=== PATIENT | female | born 1945 | race Caucasian/White ===

== ENCOUNTER 2017-10-22 02:02 | Inpatient (IN) | payer MEDICARE, MEDICAID ==
[2017-10-22] MEDS ORDERED: Albuterol Sulfate 2.5 mg/0.5 ml Neb ONE (02:22)
[2017-10-22 02:59] LABS: Hemoglobin 11.9 g/dL (12.0-16.0); Mean Corpuscular HGB CONC 30.6 g/dL (32.0-36.0); Mean Corpuscular Hemoglobin 33.2 pg (27.0-31.0); Mean Platelet Volume 8.6 fL (7.4-10.4); Platelet Count 221 thou/uL (130-400); RBC Distribution Width 14.7 % (11.5-14.5); Red Blood Cell (RBC) Count 3.58 mill/uL (4.20-5.40); White Blood Cell (WBC) Count 9.3 thou/uL (4.8-10.8)
[2017-10-22 03:07] LABS: ALT (SGPT) 33 U/L (8-55); AST (SGOT) 35 U/L (5-34); Albumin 4.1 g/dL (3.4-4.8); Alkaline Phosphatase 239 U/L (40-150); Anion Gap 25 mmol/L (10-20); BUN (Urea Nitrogen) 51 mg/dL (9.8-20.1); Bilirubin, Total 0.7 mg/dL (0.2-1.2); Calc. Creatinine Clearance 0 mL/min (70-130); Calcium 9.4 mg/dL (7.8-10.44); Carbon Dioxide 19 mmol/L (23-31); Chloride 101 mmol/L (98-107); Estimated GFR-MDRD 4; Globulin 2.5 g/dL (2.4-3.5); Glucose 248 mg/dL (80-115); Magnesium 2.3 mg/dL (1.6-2.6); Phosphorus 6.3 mg/dL (2.3-4.7); Potassium 4.7 mmol/L (3.5-5.1); Protein, Total 6.6 g/dL (6.0-8.3); Sodium 140 mmol/L (136-145)
[2017-10-22 03:09] LABS: #Basophils 0.1 thou/uL (0.0-0.2); #Eosinphils 1.1 thou/uL (0.0-0.7); #Lymphocytes 3.1 thou/uL (1.20-3.40); #Monocytes 0.4 thou/uL (0.11-0.59); #Neutrophils 4.6 thou/uL (1.40-6.50); %Basophils 0.6 % (0.0-1.0); %Eosinophils 11.7 % (0.0-10.0); %Lymphocytes 33.7 % (21.0-51.0); %Monocytes 4.7 % (0.0-10.0); %Neutrophils 49.4 % (42.0-75.0); MDiff Complete? YES; Macrocytosis SLIGHT = 6-15 cells (100X) (0-5/hpf); PLT Morphology Comment Appears Adequate
[2017-10-22 03:10] LABS: Troponin I 0.064 ng/mL (< 0.028)
[2017-10-22 03:24] LABS: Lactic Acid 7.5 mmol/L (0.5-2.2)
[2017-10-22] MEDS ORDERED: Piperacillin-Tazo-Dextrose,Iso 3.375 GM in Premix Bag 1 BAG IVPB SCH (04:00)
[2017-10-22 04:36] LABS: Bilirubin Negative (Negative); Blood, Urine Large (Negative); Clarity TURBID (Clear); Glucose, Urine (Dipstick) 100 mg/dL (Negative); Leukocyte Moderate (Negative); Nitrite Negative (Negative); Protein, Urine (Dipstick) 300 mg/dL (Neg-Trace); Urobilinogen 0.2 mg/dL (0.2-1.0)
[2017-10-22 04:39] LABS: Bacteria/HPF 4+ HPF (None Seen); Hyaline Casts/LPF 7-10 HYALINE CAST LPF (0-3 Hyaline); Pathc Cast-AUWi Flag 2.16 (0-2.49)
[2017-10-22 04:41] LABS: Yeast-AUWi Flag 180.7 (0-25.0)
[2017-10-22 05:07] LABS: Crystals/HPF None Seen HPF (Negative); Yeast-All Forms None Seen HPF (None Seen)
[2017-10-22] MEDS ORDERED: Vancomycin HCl 500 MG in Sodium Chloride 0.9% 100 ML IVPB SCH ×2 (06:15→06:30)
[2017-10-22] MEDS ORDERED: Vancomycin HCl 1.25 GM in Sodium Chloride 0.9% 250 ML 250 ML IVPB SCH (06:30)
[2017-10-22] MEDS ORDERED: Vancomycin HCl 750 MG in Sodium Chloride 0.9% 250 ML 250 ML IVPB SCH (06:30)
[2017-10-22] MEDS ORDERED: HOLD VANCOMYCIN FOR LEVEL >20 FS SCH (06:30)
[2017-10-22] MEDS ORDERED: Vancomycin HCl 1 GM in Premix Bag 1 BAG IVPB SCH (06:30)
[2017-10-22 06:49] LABS: Troponin I 0.188 ng/mL (< 0.028)
[2017-10-22] MEDS ORDERED: Dextrose 5% in Water 1,000 ML IV PRN ×2 (06:54→08:18)
[2017-10-22] MEDS ORDERED: Dextrose 50% Abboject 50 ML SYRINGE SLOW IVP PRN ×2 (06:54→08:18)
[2017-10-22] MEDS ORDERED: HumaLOG 300 UNITS/3 ML VIAL SC PRN ×3 (06:54→08:18)
[2017-10-22 07:34] LABS: HBSAg Index 0.24 S/CO (0-0.99); Hep B Surf Ag Non-Reactive S/CO (NonReactive)
--- NOTE | 2017-10-22 08:17 | RAD ---
PORTABLE UPRIGHT FRONTAL CHEST: Date: 10-22-17 Comparison: 03-29-15 History: Cough. FINDINGS: There is pleural and parenchymal opacity in both lung bases, left greater than right, with blunting o f bilateral costophrenic angles and obscuration of bilateral hemidiaphragms, left greater than right. Extensive stent graft material overlies the left axillary region and left upper extremity. There is no pneumothorax. IMPRESSION: Interval development of interstitial and alveolar opacity within the lung bases, left greater than ri ght, with associated pleural fluid. Findings suggest pulmonary edema. Infectious pneumonitis cannot b e excluded. Follow up to resolution advised. POS: VIDYA
[2017-10-22] MEDS ORDERED: Ondansetron ODT 4 MG TAB PO PRN (08:18)
[2017-10-22] MEDS ORDERED: Labetalol HCl 100 MG/20 ML VIAL SLOW IVP PRN (08:18)
[2017-10-22] MEDS ORDERED: Acetaminophen 325 MG TAB PO PRN (08:18)
[2017-10-22 08:41] LABS: Actual Bicarbonate (HCO3v) 25 mEq/L (22-26); Base Excess 2.2 mEq/L (0 (+/- 2.5)); Calcium, Ionized 0.94 mmol/L (1.16-1.32); Chloride (ABG LAB) 102 mmol/L (98-106); Hematocrit-VBG 30.9 % (35-47); Potassium - ABG Lab 5.3 mmol/L (3.70-5.30); Sodium 138.8 mmol/L (133-146)
[2017-10-22 08:42] LABS: Analyzer IN Cardio ER; pH (venous) 7.49 (7.35-7.45)
[2017-10-22 08:58] LABS: Hemoglobin A1c 4.7 % (4.0-6.0)
[2017-10-22] MEDS ORDERED: Heparin 5,000 UNITS/ML VIAL SC SCH (09:00)
[2017-10-22] MEDS ORDERED: Heparin 5,000 UNITS/ML VIAL ONE ×2 (09:25→09:35)
--- NOTE | 2017-10-22 09:33 | HP-2 ---
CODE STATUS: FULL. PRIMARY CARE PHYSICIAN: Dr. Raven Isaacs ATTENDING: Dr. Vianney Orona RESIDENT: Dr. Meghann Rosales HISTORIAN: Patient. SPECIALIST: Dr. Blake, Nephrology; Dr. Kyle, Cardiology. CHIEF COMPLAINT: Shortness of breath. HISTORY OF PRESENT ILLNESS: The patient is a 72-year-old female with past medical history of end-sta ge renal disease on dialysis Saturday, Saturday, and Saturday and a recent 2-day history of nausea, vomi ting, diarrhea as well as cough. The patient came in for acute onset of shortness of breath. The pa connie missed dialysis yesterday due to feeling poorly. No fever at home. No ill contacts. The jarred ent does report a small amount of blood in her stools that has been worked up and had a positive feca l occult blood in the clinic. The patient found to have an elevated glucose on labs, no history of d iabetes. The patient also reports she has been seen by Dr. Kyle and put on Xarelto the last 3 week s for "risk of stroke." The patient unsure if he diagnosed her with atrial fibrillation. In the ER she was given 1 gram of vancomycin, 3.37 mg of Zosyn, DuoNebs, albuterol nebs and 250 mL no rmal saline. PAST MEDICAL HISTORY: 1. History of advanced breast cancer, status post radiation. 2. Transient ischemic attack. 3. End-stage renal disease on dialysis Saturday, Saturday and Saturday. 4. Bipolar disorder. 5. Glaucoma. 6. Hypertension. 7. Hyperlipidemia. 8. Questionable paroxysmal atrial fibrillation. PAST SURGICAL HISTORY: x3 and lumpectomy. ALLERGIES: No known drug allergies. MEDICATIONS: The patient unsure of doses, beginning Xarelto 3 weeks ago, aspirin, raloxifene, nifedi pine, Lipitor, metoprolol, Renvela, and Pristiq. SOCIAL HISTORY: Denies tobacco, alcohol, and drug use. Lives at home with fiance. Normally is able to perform ADLs on her own. She gets around without walker or aide. REVIEW OF SYSTEMS: A 12 point review of systems performed including general, eyes, ENT, respiratory, CV, GI, , skin, MS, neuro and psych, found to be positive for those things mentioned in the HPI as well as increased weight change that is appropriate for increased intake to gain weight on purpose. Dry cough and congestion. PHYSICAL EXAMINATION: VITAL SIGNS: Blood pressure 200/92, pulse 98, respiratory rate 30, T-max 97.4, pulse ox 97% on nonre breather. Current weight 56.25 kilograms. GENERAL: The patient is alert and oriented x4 and does have slowed mentation, is tremulous, but appr opriately interactive. EYES: PERRLA, EOMI. ENT: Nasal mucosa within normal limits. Oropharynx within normal limits. NECK: Supple, without lymphadenopathy. CARDIOVASCULAR: Regular rate and rhythm, no murmurs. RESPIRATORY: Does have wheezing throughout. No retractions. Normal effort. SKIN: Warm and dry. ABDOMEN: Soft, nontender, nondistended. No masses palpated. EXTREMITIES: No clubbing, cyanosis or edema. MUSCULOSKELETAL: Structure within normal limits. Tone within normal limits. NEUROLOGIC: No focal deficits. GCS 15. PSYCHIATRIC: Appropriate. LABORATORY DATA: CBC, white blood cell count 9.3, hemoglobin 11.9, hematocrit 38.8, platelets were 2 21, MCV 109. Chemistries: Sodium 140, potassium 4.7, chloride 101, bicarb 19, BUN 51, creatinine 8.79, glucose 24 8, GFR 4, calcium 9.4, total protein 6.6, albumin 4.1, AST 35, ALT 33, alkaline phosphatase 239, tot al bilirubin 0.7. Lactic acid 7.5. Mag 2.3, phosphorus 6.3. CK-MB 2.0, troponin 0.064. BNP is 3496. UA was performed, positive leukocyte esterase, increased white blood cell count, proteinuria and bact eria, although sample has 10-15 squamous cells. Chest x-ray: Bilateral pleural effusions with blunting of the costophrenic angles, vascular congesti on, possible right lower lobe infiltrate and official read is pending. ASSESSMENT AND PLAN: 1. Volume overload secondary to missing dialysis. The patient with end-stage renal disease on dialy sis Saturday, Saturday, and Saturday. We will admit to [facility] and get dialysis today. This is a likely c ause of elevated troponin's and BNP. 2. Possible pneumonia, started on vancomycin and Zosyn in the ED. We will continue for hospital acq uired pneumonia secondary to using dialysis facilities. We will get a blood culture and test for Str ep pneumo urine antigen. 3. Hypertensive urgency. Goal to lower by 20 points, while we await dialysis we will give p.r.n. la betalol. 4. Anion gap metabolic acidosis likely secondary to uremia, but will rule out DKA with beta hydroxyb utyrate and get a VBG. 5. New diagnosis of diabetes type 2. Check A1c and place on sliding scale insulin. 6. Questionable paroxysmal atrial fibrillation. We will request records from Dr. Kyle and vicente Kendall. 7. Lactic acidosis. We will recheck in 4 hours, possibly secondary to dehydration versus DKA versus infection. 8. Urinary tract infection, likely, although UA is contaminated. We will continue Zosyn and get a u rine culture. 9. Hematochezia, a small amount in stool, is being worked up outpatient. We will get stool studies to evaluate. 10. DVT prophylaxis. We will give heparin. DISPOSITION/LENGTH OF HOSPITAL STAY: 1-2 days. Symptomatic medication will be provided. History and physical exam as well as management discussed with Dr. Vianney Orona.
--- NOTE | 2017-10-22 12:50 | CON ---
DATE OF CONSULTATION: 10/22/2017 HISTORY OF PRESENT ILLNESS: Ms. Little is a 72-year-old white female with known history of en d-stage renal disease, currently on maintenance hemodialysis who presented with shortness of breath. She was found to be in CHF. She was empirically managed by CPAP and oxygenation, improved. This mo rning she is feeling better. We are being consulted for her maintenance hemodialysis. Please note t he patient missed her dialysis yesterday. We are planning to schedule her for dialysis this afternoo n. REVIEW OF SYSTEMS: Positive for shortness of breath, improved now. Chest pain, single episode. No nausea, no vomiting, no diarrhea. Appetite and energy level is fair. No headache, no diplopia, no s yncopal episode, no gross hematuria, no dysuria, no urinary frequency, no hemoptysis, no fever or chi lls. No abdominal pain. MEDICATIONS: Trazodone 100 mg p.o. at bedtime, Renvela 800 mg 4 tabs t.i.d. with meals, Evista 60 mg daily, metoprolol tartrate 25 mg p.o. at bedtime, Ritalin 20 mg p.o. t.i.d., Pristiq 50 mg q.a.m., S ensipar 90 mg daily, atorvastatin 20 mg tab at bedtime. PAST MEDICAL HISTORY: 1. ESRD, currently on maintenance hemodialysis. 2. History of chronic lithium nephrotoxicity. 3. History of bipolar disorder. 4. History of hypertension. 5. Breast cancer - in remission. 6. Osteoporosis. PAST SURGICAL HISTORY: 1. section. 2. Status post AV graft/fistula placement. 3. Status post bilateral tubal ligation. 4. Status post cuffed hemodialysis catheter placement. 5. Status post colonoscopy. ALLERGIES: None. TRAUMA: None. IMMUNIZATIONS: Up to date. HOSPITALIZATIONS: Please see past medical history. FAMILY HISTORY: No family history of ESRD. SOCIAL HISTORY: The patient is , 2 children. Currently no smoking, no alcohol intake, seden tary lifestyle. Status post blood transfusion. PHYSICAL EXAMINATION: VITAL SIGNS: Blood pressure is 164/87, heart rate 94, pulse ox is 92%. GENERAL: Awake, alert, supine, comfortable, not in distress. SKIN: Adequate turgor. HEENT: She has pinkish conjunctivae, anicteric sclerae. NECK: No neck mass, no carotid bruits, no JVD. CHEST: No deformities. LUNGS: Decreased breath sounds. HEART: Normal sinus rhythm. No murmur, no gallops or rubs. ABDOMEN: Globular, soft, nontender, no masses. EXTREMITIES: No edema. NEUROLOGIC: Moving all extremities. No tremors, no asterixis, no ataxia. Chest x-ray shows CHF. LABORATORY: 10/22/2017 - White count 9.3, hemoglobin 11.9. 10/22/2017 - Sodium 143, chloride 101, carbon dioxide 19, potassium 4.7, BUN 15, creatinine 8.79, glu cose 248, GFR 4 mL per minute, calcium 9.4, magnesium 2.3, AST 35, ALT 33, troponin I 0.188, albumin 4.1. ASSESSMENT AND PLAN: 1. Congestive heart failure. We will schedule for hemodialysis. Fluid removal as tolerated. 2. End-stage renal disease. The patient missed her dialysis. We will do her dialysis today for 3 h ours. The plan is to max out fluid removal as tolerated by the patient. My review of the last Kt/V suggests she is adequately dialyzed with the current dialysis regimen. Please note she did miss her dialysis. She has some compliance issues with dialysis regimen. I agree with current management. Continue supportive care.
[2017-10-22 15:35] LABS: Anion Gap 17 mmol/L (10-20); BUN (Urea Nitrogen) 36 mg/dL (9.8-20.1); Calc. Creatinine Clearance 0 mL/min (70-130); Calcium 9.1 mg/dL (7.8-10.44); Carbon Dioxide 27 mmol/L (23-31); Chloride 101 mmol/L (98-107); Estimated GFR-MDRD 7; Glucose 104 mg/dL (80-115); Magnesium 1.9 mg/dL (1.6-2.6); Phosphorus 2.8 mg/dL (2.3-4.7); Potassium 4.6 mmol/L (3.5-5.1); Sodium 140 mmol/L (136-145)
[2017-10-22 17:25] LABS: Troponin I 0.376 ng/mL (< 0.028)
[2017-10-22] MEDS ORDERED: Albuterol Sulfate 2.5 mg/3 ml Neb NEB SCH (19:00)
[2017-10-22] MEDS ORDERED: Heparin 25,000 units/D5W 500 ML IVPB SCH (19:15)
[2017-10-22] MEDS ORDERED: Heparin 10,000 UNITS/ 10 ML VIAL SLOW IVP SCH (19:15)
[2017-10-22 19:32] LABS: Hemoglobin 9.8 g/dL (12.0-16.0); Platelet Count 153 thou/uL (130-400)
[2017-10-22 19:56] LABS: CKMB 2.9 ng/mL (0-6.6)
[2017-10-22 19:58] LABS: Critical Call Chem Troponin I RESULT DECREASING; Troponin I 0.336 ng/mL (< 0.028)
--- NOTE | 2017-10-22 21:27 | ADD-PRG ---
DATE OF SERVICE: 10/22/2017 I am currently visiting with Dianna Farias at the dialysis unit. I am at the bedside and super vising on dialysis, so far she is tolerating the fluid removal. Please note she was admitted for con gestive heart failure. We are attempting to max out fluid removal. For the moment, I agree with cur kevint management. If the patient is discharged, we will follow her up at the outpatient dialysis unit .
[2017-10-22] MEDS: Piperacillin/Tazobactam 2.25 GM in Sodium Chloride 0.9% 50 ML IVPB SCH (22:36)
[2017-10-22] MEDS: Heparin 5,000 UNITS/ML VIAL SC SCH (22:46)
[2017-10-22 23:16] VITALS: BMI 23.1
[2017-10-23] MEDS: Piperacillin/Tazobactam 2.25 GM in Sodium Chloride 0.9% 50 ML IVPB SCH ×2 (00:01→12:23)
[2017-10-23] MEDS ORDERED: hydrOXYzine 10 MG TAB PO PRN (00:22)
[2017-10-23 05:26] LABS: #Eosinphils 0.4 thou/uL (0.0-0.7); #Lymphocytes 0.7 thou/uL (1.20-3.40); #Monocytes 0.4 thou/uL (0.11-0.59); #Neutrophils 2.4 thou/uL (1.40-6.50); %Basophils 0.9 % (0.0-1.0); %Eosinophils 10.1 % (0.0-10.0); %Lymphocytes 16.7 % (21.0-51.0); %Monocytes 10.5 % (0.0-10.0); %Neutrophils 61.9 % (42.0-75.0); Hemoglobin 9.5 g/dL (12.0-16.0); Mean Corpuscular HGB CONC 33.1 g/dL (32.0-36.0); Mean Corpuscular Hemoglobin 34.9 pg (27.0-31.0); Mean Platelet Volume 8.9 fL (7.4-10.4); Platelet Count 137 thou/uL (130-400); RBC Distribution Width 14.7 % (11.5-14.5); Red Blood Cell (RBC) Count 2.73 mill/uL (4.20-5.40); White Blood Cell (WBC) Count 3.9 thou/uL (4.8-10.8)
[2017-10-23 05:36] LABS: ALT (SGPT) 25 U/L (8-55); AST (SGOT) 19 U/L (5-34); Albumin 3.2 g/dL (3.4-4.8); Alkaline Phosphatase 173 U/L (40-150); Anion Gap 14 mmol/L (10-20); BUN (Urea Nitrogen) 29 mg/dL (9.8-20.1); Bilirubin, Total 0.7 mg/dL (0.2-1.2); Calc. Creatinine Clearance 8 mL/min (70-130); Calcium 9.6 mg/dL (7.8-10.44); Carbon Dioxide 28 mmol/L (23-31); Chloride 103 mmol/L (98-107); Estimated GFR-MDRD 7; Globulin 2.2 g/dL (2.4-3.5); Glucose 99 mg/dL (80-115); Protein, Total 5.4 g/dL (6.0-8.3); Sodium 140 mmol/L (136-145)
[2017-10-23 05:40] LABS: Strep pneumo Urine Ag POSITIVE (NEGATIVE)
[2017-10-23 08:02] LABS: Vancomycin, Random 12.5 ug/mL (See Comment)
[2017-10-23] MEDS ORDERED: Epoetin (ESRD) 20,000 UNITS/ML SC SCH ×2 (08:15→09:00)
--- NOTE | 2017-10-23 08:58 | PRG ---
DATE OF SERVICE: 10/23/2017 SUBJECTIVE: Ms. Little is a 72-year-old white female with history of ESRD. She was admitted for shortness of breath/CHF. She underwent emergent hemodialysis yesterday. She is currently underg oing hemodialysis this morning. I am at the bedside supervising her dialysis. This is her regular d ia day. Shortness of breath is much improved. The patient denies any chest pain. OBJECTIVE: VITAL SIGNS: Blood pressure 187/88, heart rate 88, respiratory rate 14, temperature 98.5, pulse ox 9 5%. GENERAL: Awake, alert, comfortable, not in distress. SKIN: Adequate turgor. HEENT: Slightly pale conjunctivae, anicteric sclerae. NECK: No neck mass, no carotid bruits, no JVD. CHEST: No deformities. LUNGS: Clear breath sounds. No wheezing, no crackles. HEART: Normal sinus rhythm. No murmur, no gallops, no rubs. ABDOMEN: Globular, soft, nontender, no masses. EXTREMITIES: No edema, no deformities. MEDICATIONS: Of 10/23/2017 was reviewed. LABORATORY DATA: Of 10/23/2017, white count 3.9, hemoglobin 9.5. Sodium 140, potassium 5, chloride 103, carbon dioxide 28, BUN 29, creatinine 5.97, glucose 99, calcium 9.6, albumin 3.2, and troponin I 0.036. ASSESSMENT AND PLAN: 1. Congestive heart failure, clinically much improved, fluid removal was done with dialysis yesterda y. 2. End-stage renal disease, stable. We will continue current Saturday, Saturday, Saturday hemodialysis regimen. Fluid removal as tolerated by the patient. No changes will be made with the current dialy sis. 3. Anemia - Start Epogen 7500 units subcu q. week.
--- NOTE | 2017-10-23 11:28 | PDOC.FM ---
Addendum entered and electronically signed by Gonzalo Aguayo MD 10/23/17 11:49: Contact with Dr. Kyle confirms she has history of atrial fib which she is on afib for. Original Note: - Subjective Subjective: Patient says she feels well, back at her baseline. She denies having fever, SOB , chest pain, nausea. - Objective MAR Reviewed: Yes Vital Signs & Weight: Vital Signs (12 hours) Temp Pulse Resp BP BP Pulse Ox 10/23/17 04:15 93 187/88 H 10/23/17 04:00 98.5 F 88 14 187/86 H 95 Weight Weight 59.33 kg I&O: 10/22/17 10/23/17 10/24/17 06:59 06:59 06:59 Output Total 2500 Balance -2500 Result Diagrams: 10/23/17 04:30 10/23/17 04:30 <Gonzalo Aguayo - Last Filed: 10/23/17 11:26> - Objective Vital Signs & Weight: Vital Signs (12 hours) Temp Pulse Resp BP BP Pulse Ox 10/23/17 04:15 93 187/88 H 10/23/17 04:00 98.5 F 88 14 187/86 H 95 Weight Weight 59.33 kg I&O: 10/22/17 10/23/17 10/24/17 06:59 06:59 06:59 Output Total 2500 Balance -2500 Result Diagrams: 10/23/17 04:30 10/23/17 04:30 <Pablito Melvin - Last Filed: 10/23/17 11:58> Phys Exam - Physical Examination Constitutional: NAD HEENT: moist MMs Neck: no nodes, supple Respiratory: no wheezing, no rales, no rhonchi, clear to auscultation bilateral No crackles heard on exam Cardiovascular: RRR Gastrointestinal: soft Musculoskeletal: no edema Neurological: non-focal Lymphatic: no nodes <Gonzalo Aguayo - Last Filed: 10/23/17 11:26> Dx/Plan (1) Streptococcal pneumonia Code(s): J15.4 - PNEUMONIA DUE TO OTHER STREPTOCOCCI Status: Acute Plan: Urine antigen came back positive, will treat with amoxicillin 500 mg TID (2) Lactic acidosis Code(s): E87.2 - ACIDOSIS Status: Acute Plan: Resolved (3) Bacteria in urine Code(s): R82.71 - BACTERIURIA Status: Acute Plan: She is asymptomatic at this time, culture came back as urine skin contaminate. Likely from skin esther (4) Hyperglycemia Code(s): R73.9 - HYPERGLYCEMIA, UNSPECIFIED Status: Acute Plan: Patient had normal a1c. Elevated BG likely not diabetes (5) Atypical chest pain Code(s): R07.89 - OTHER CHEST PAIN Status: Acute Plan: She had elevated trops x3, but is now decreasing. Ekg show no new change. Patient asymptomatic. May be related to demand via need for dialysis versus htn. Will continue dialysis and work on HTN (6) ESRD (end stage renal disease) Code(s): N18.6 - END STAGE RENAL DISEASE Status: Acute Plan: Continue with dialysis (7) HTN (hypertension) Code(s): I10 - ESSENTIAL (PRIMARY) HYPERTENSION Status: Acute Plan: Will reevaluate home medication and titrate medication <Gonzalo Aguayo - Last Filed: 10/23/17 11:26> Attending Addendum - Attending Addendum I personally evaluated the patient and discussed the management with Dr. Aguayo. I agree with and reviewed the History, Examination, Assessment and Plan documented above with any addition or exceptions noted below. Patient doing very well this morning, would like to go home. Denies cp/sob/n/v/ abd pain. ESRD now s/p 2 sessions of dialysis CAP with strep pneumonia Hypertensive urgency, restart home medications Elevated troponin 2/2 above without symptoms of ischemia A. fib, on NOAC at home Anticipate one more day for antibiotics as well as hypertension management. If any signs of ischemia we will of course consult cardiology. <Pablito Melvin - Last Filed: 10/23/17 11:58>
[2017-10-23] MEDS ORDERED: AMOXicillin 250 MG CAP PO SCH (12:00)
[2017-10-23] MEDS ORDERED: NIFEdipine XL 30 MG TAB PO SCH (12:15)
[2017-10-23] MEDS ORDERED: Metoprolol Tartrate 50 MG TAB PO SCH (12:15)
[2017-10-23] MEDS: Heparin 5,000 UNITS/ML VIAL SC SCH (12:23)
[2017-10-23 15:56] VITALS: TEMP 99.3
[2017-10-23] MEDS ORDERED: Rivaroxaban 15 MG TAB PO SCH (17:00)
[2017-10-23 17:08] VITALS: BP 152/70
--- NOTE | 2017-10-23 18:29 | CON ---
DATE OF CONSULTATION: 10/23/2017 REASON FOR CONSULTATION: Positive troponins. PRIMARY NON DESTRUCTIVE EVALUATION MANAGER: Elliot Kyle M.D. HISTORY OF PRESENT ILLNESS: Ms. Little is a very pleasant 72-year-old white female who comes to the hospital for increased shortness of breath. She missed a day of dialysis. She is on hemodial ysis Saturday, Saturday, and Saturday for end-stage renal disease. As she was not feeling well, she was having nausea, vomiting, and diarrhea, and a cough. Because she missed a day, she became volume ove rload. She became very short of breath and had to come in for evaluation. Here, she was given emerg ent dialysis and she is already feeling much better. I have seen her in the office in the recent pas t. She had an echocardiogram a few weeks ago which showed normal LV function. During the echocardio gram, she had several short runs of atrial fibrillation. So at this point, we discussed with her the risk of stroke and we started her on Xarelto for stroke prophylaxis. Since we started this, her PCP has been evaluating her for positive fecal occult blood in the clinic and has followup appointments with GI. Currently, she denies any chest pain, tightness, or pressure. She also had a stress test e rody this year which was normal. PAST MEDICAL HISTORY: 1. Breast cancer, status post radiation. 2. TIAs in the past. 3. End-stage renal disease, on hemodialysis Saturday, Saturday, Saturday. 4. Bipolar disorder. 5. Glaucoma. 6. Hypertension. 7. Hyperlipidemia. 8. Paroxysmal atrial fibrillation. Recent new diagnosis. PAST SURGICAL HISTORY: 1. . 2. Lumpectomy. OUTPATIENT MEDICATIONS: Include, 1. Xarelto 50 mg p.o. daily. 2. Aspirin 81 daily. 3. Raloxifene. 4. Nifedipine. 5. Lipitor. 6. Metoprolol. 7. Renvela. 8. Pristiq. ALLERGIES: No known drug allergies. SOCIAL HISTORY: No alcohol, tobacco or drugs. REVIEW OF SYSTEMS: Twelve point review of systems was done and is all negative unless stated in the history of present illness. PHYSICAL EXAMINATION: VITAL SIGNS: Temperature 99.3, pulse 85, respiratory 18, O2 sat 96% on room air. Blood pressure 140 /67. GENERAL: Awake, alert, oriented x3, in no distress. HEENT: Normocephalic, atraumatic. NECK: Supple. LUNGS: Clear. CARDIOVASCULAR: S1, S2, no S3 or S4. There is a grade 2/6 systolic murmur at right upper sternal amelia rder. ABDOMEN: Soft. Positive bowel sounds. EXTREMITIES: No edema. SKIN: Warm and dry. LABORATORY WORK: Reviewed. CBC with white count of 3.9, hemoglobin 9.5, this is down from 11.9 yest erday, platelet count of 137. Coags were unremarkable. ABG was reviewed. Chemistries were reviewed . Troponin was 0.37, 0.33, BUN is 29, creatinine is 5.97, glucose was 114; alkaline phos of 173, lit tle high; AST, ALT, and total bilirubin were normal. Albumin of 3.2. UA, moderate leukocyte esteras e, large amount of blood, greater than 50 white cells, 4-6 red cells, 4+ bacteria. Beta hydroxybutyr ate was negative. Strep pneumo urinary antigen was positive. Chest x-ray showed interstitial lower lobe opacities in the lung bases, pulmonary edema. There could be an infectious pneumonitis in the left side. ASSESSMENT AND PLAN: 1. Elevated troponins: Most likely related to her infectious process and her end-stage renal diseas e status. She had a recent normal stress test and is not having any symptoms concerning for an acute coronary syndrome. Would continue to treat conservatively for now. No indication for anticoagulati on. 2. Volume overload related to missing hemodialysis. Much better now after emergent dialysis was per formed. 3. Pneumonia: Possibly strep pneumo given a positive urine antigen. Being treated per primary team . 4. Paroxysmal atrial fibrillation: This is a new diagnosis that was seen on a recent echocardiogram . She had several bouts of atrial fibrillation during the echo that would be with her history of tra nsient ischemic attacks in the past. She would be a candidate for full anticoagulation and she was s tarted on Xarelto; however, at this time she has dropped her hemoglobin for about 2 points and she lópez s had some occult blood in her stool. I would switch her back to aspirin 81 a day only for now until GI workup is finished and if she is cleared from GI and her hemoglobin remains stable, we may rechal lenge her with Xarelto, but at this point we will hold for now. I already spoke with her about this and about the increased risk of having a stroke without full anticoagulation. She understands and ve rbalizes understanding of this. Thank you for letting us to participate in the care of your patient. We will follow.
[2017-10-23] MEDS ORDERED: Atorvastatin Calcium 20 MG TAB PO SCH (21:00)
[2017-10-24] MEDS ORDERED: AMOXicillin 250 MG CAP PO SCH (09:00)
[2017-10-24] MEDS ORDERED: Metoprolol Tartrate 50 MG TAB PO SCH (09:00)
[2017-10-24] MEDS ORDERED: NIFEdipine XL 30 MG TAB PO SCH (09:00)
--- NOTE | 2017-10-24 13:03 | DIS-2 ---
DATE OF ADMISSION: 10/22/2017 DATE OF DISCHARGE: 10/23/2017 ADMITTING ATTENDING: Vianney Orona M.D. DISCHARGE ATTENDING: Pablito Melvin MD RESIDENT: Gonzalo Aguayo M.D. CONSULTS: Driss Blake M.D. PROCEDURES: Chest x-ray on 10/22/2017. Impression: Interval development of interstitial and alveolar opacity within the lung base, left greater than right with associated pleural fluid. Findings suggestive of pulmonary edema where infectious pneumonitis cannot be excluded. Followup to resolution advised. DISCHARGE MEDICATIONS: 1. Amoxicillin 500 mg p.o. daily. 2. Epocrit 7500 units subcutaneous every 7 days. 3. Renvela 2400 mg p.o. t.i.d. with meals. 4. Evista 60 mg p.o. daily. 5. Latanoprost 0.5% one drop each eye at bedtime. 6. Sensipar 2 tablets p.o. daily. 7. Pristiq 50 mg p.o. q.a.m. 8. Atorvastatin 20 mg p.o. at bedtime. 9. Zofran 4 mg every 6 hours as needed. 10. Nifedipine 30 mg p.o. daily. 11. Zyrtec 10 mg p.o. daily. 12. Pantoprazole 20 mg p.o. daily. 13. Trazodone 150 mg p.o. at bedtime. 14. Metoprolol 50 mg p.o. daily. DISCONTINUED MEDICATIONS 1, Xarelto 15 mg mg p.o. at bedtime with supper until GI workup completed for possible GI bleed DISCHARGE DIAGNOSES: 1. Volume overload secondary to missing dialysis. 2. Streptococcus pneumoniae. 3. Hypertensive urgency. 4. Anion gap metabolic acidosis secondary to uremia. 5. Hyperglycemia. 6. History of paroxysmal atrial fibrillation. 7. Lactic acidosis. 8. Hematochezia. HISTORY OF PRESENT ILLNESS AND HOSPITAL COURSE: This is a 72-year-old female with past medical history of end-stage renal disease and missed dialysis the day prior to admission. She came in for acute onset of shortness of breath. She had no sick contacts, no fever. She noticed positive fecal occult blood while in her PCP's office and was also found to have elevated glucose over 200 prior to being sent to the hospital. In the ER, she received 1 gram of vancomycin, 3.375 mg of Zosyn, DuoNebs, albuterol nebulizer, and 250 mL of normal saline. She was seen, Dr. Blake was consulted for dialysis. It was noted that she had in the ER elevated creatinine of 8.79 and she had a glucose of 248 and that her blood pressure was also elevated at 200/92. Troponins were found to be indeterminate at that time at 0.064 with a mildly elevated BNP of 3496. UA was done, finding wbc and bacteria, but it was contaminated with epithelial cells. Chest x-ray done at that time found that there was bilateral pleural effusion with blunting of the costophrenic angles. She was admitted to the telemetry floor where she got dialysis on that day and on the next day. Test results for the UA returned with normal skin esther. Her troponin was noted to be elevated and continued to rise getting to a max level of 0.376 before going down to 0.336. She never had any kind of chest pain, shortness of breath, nausea or vomiting during this time. Urine antigen came back with strep pneumo with a known pathogen. Her initial broad-spectrum antibiotic was narrowed to amoxicillin. On the day of discharge, she felt well. She stated that she felt back to her baseline and said that she was eager to go home with the understanding that she needed follow up with dialysis the following day. Dr. Kyle was consulted formally for her elevated troponin. His note indicated that he did not think that there was any kind of ischemic event going and that she had a recent stress test with him, which did not show any abnormality and that was most likely related to infectious process and end-stage renal disease; however, he did recommend that she be switched back to aspirin 81 mg until a GI workup could be done; however, as the consult note came after her discharge, she was not aware of it. On discharge, she will be contacted as her PCP is at [facility] about Xarelto and that it should be discontinued and that she is only to take aspirin. DISPOSITION: Stable. DISCHARGE INSTRUCTIONS: 1. Location: To home. 2. Diet: Renal, heart-healthy diet. 3. Activity: As tolerated. 4. Followup: Followup with Dr. Raven Isaacs at [facility] within 1 week. AYAH
--- NOTE | 2017-11-01 16:33 | PQF ---
JACQUES LOW AMANDA MD *michael [id number] [facility]-258 [id number] CLINICAL DOCUMENTATION CLARIFICATION FORM: POST DISCHARGE Please exercise your independent, professional judgment in responding to the clarification form. Clinical indicators are provided on the bottom of this form for your review. Thank you. Please check appropriate box(s): [ x] Volume Overload / ESRD [ x ] Congestive Heart Failure [ x ] Type___preserved EF HF [ ] Acuity ____chronic [ ] Other diagnosis [ ] Unable to determine In addition, please specify: Present on Admission (POA): [x ] Yes [ ] No [ ] Unable to determine H&P; Volume overload secondary to missing dialysis. DC SUMMARY; "Volume overload due to missing dialysis. ESRD. Streptococcus pneumoniae." "Mildly elevated BNP of 3496." CARD CONSULT; "Volume overload after missing dialysis. Much better now after emergent dialysis was performed. She had an echocardiogram a few weeks ago which showed normal LV function." NEPH CONSULT; Congestive heart failure. Fluid removal with dialysis. CLINICAL INDICATORS - SIGNS / SYMPTOMS / LABS Ejection Fraction =__55____ % (2014) Dyspnea, Hypoxia Elevated BNP Pleural effusion / pulmonary edema RISKS: ESRD Atrial Fibrillation Hypertension Hyperlipidemia TREATMENTS: IV diuretics Pulmonary consult Cardiology consult (This form is maintained as a part of the permanent medical record) 2014 [employer]. All Rights Reserved [email or web address] [phone] AYAH
--- NOTE | 2017-11-09 17:49 | EKG ---
Test Reason : Blood Pressure : / mmHG Vent. Rate : 111 BPM Atrial Rate : 111 BPM P-R Int : 136 ms QRS Dur : 100 ms QT Int : 346 ms P-R-T Axes : 041 -04 070 degrees QTc Int : 470 ms Sinus tachycardia Nonspecific ST and T wave abnormality Abnormal ECG Confirmed by OMER CASTAÑEDA D.O. ([id number]), photo editor FLOYD GARCIA ([id number]) on 11/09/2017 5:47:56 PM Referred By: Confirmed By:OMER CASTAÑEDA D.O.
--- NOTE | 2017-11-15 16:39 | EKG ---
Test Reason : CP Blood Pressure : / mmHG Vent. Rate : 092 BPM Atrial Rate : 092 BPM P-R Int : 158 ms QRS Dur : 094 ms QT Int : 378 ms P-R-T Axes : 055 000 092 degrees QTc Int : 467 ms Normal sinus rhythm Possible Left atrial enlargement Nonspecific ST and T wave abnormality Abnormal ECG When compared with ECG of 22-OCT-2017 02:14, (Unconfirmed) T wave inversion more evident in Lateral leads Confirmed by DR. Ange MARR ([id number]) on 11/15/2017 4:39:13 PM Referred By: CAROLINE Confirmed By:DR. Ange MARR
== END 2017-10-23 19:30 | disposition home or self-care (01) | DRG 291 ==
LOC: ERS 02:02 → ERHOLD 04:00 → 2NO 20:01
PROVIDERS: ADMIT Student in an Organized Health Care Education/Training Program; ATTEND Student in an Organized Health Care Education/Training Program
PROC: 5A1D70Z Performance of Urinary Filtration, Intermittent, Less than 6 Hours Per Day (ICD-10-PCS; principal; 2017-10-22)
DX: I13.2 Hypertensive heart and chronic kidney disease with heart failure and with stage 5 chronic kidney disease, or end stage renal disease (principal); J13 Pneumonia due to Streptococcus pneumoniae; E87.2 Acidosis; N18.6 End stage renal disease; I48.0 Paroxysmal atrial fibrillation; K92.1 Melena; I50.32 Chronic diastolic (congestive) heart failure; Z91.15 Patient's noncompliance with renal dialysis; I16.0 Hypertensive urgency; Z79.02 Long term (current) use of antithrombotics/antiplatelets; R73.9 Hyperglycemia, unspecified; Z99.2 Dependence on renal dialysis; E78.5 Hyperlipidemia, unspecified; H40.9 Unspecified glaucoma; F31.9 Bipolar disorder, unspecified; R09.02 Hypoxemia; Y95 Nosocomial condition; R82.71 Bacteriuria
CPT/HCPCS: 36415; 36416; 71045; 80053; 80202; 81003; 81015; 82010; 82274; 82553; 82805; 83036; 83605; 83735; 83880; 84100; 84484; 85025; 85730; 87040; 87045; 87046; 87086; 87328; 87329; 87340; 87449; 87804; 87899; 90935; 93005; 93010; 96361; 96365; 96367; 96372; G0257; G8978-GP-CJ; G8979-GP-CJ; G8980-GP-CJ; G8987-GO-CI; G8988-GO-CI; G8989-GO-CI; J1644; J2543; J3370; J7050; J7611; J7620; Q4081

== ENCOUNTER 2017-11-20 07:25 | Day surgery (SDC) | payer MEDICARE, MEDICAID ==
[2017-11-19 11:49] VITALS: BMI 21.4
--- NOTE | 2017-11-20 06:16 | HP ---
HISTORY OF PRESENT ILLNESS: This is a 72-year-old female with a family history of colon cancer. The patient also has past medical history of colon polyp. She had a colonoscopy and polypectomy done in 2016. The patient has cardiac arrhythmia and does take Xarelto. The patient had nausea and dyspepsia recently. She had a stool exam done that came back positive for occult blood. The patient is undergoing EGD because of dyspepsia and also blood in the stool. ALLERGIES: None. MEDICAL ILLNESSES: 1. Chronic kidney disease. 2. Bipolar disorder. 3. Glaucoma. 4. Hypertension. 5. Stroke. 6. Colon polyp. 7. Depression or anxiety. 8. History of breast cancer. SOCIAL HISTORY: The patient does not smoke or drink alcohol. PHYSICAL EXAMINATION: VITAL SIGNS: Pulse is 70, blood pressure 130/80. HEENT: Conjunctivae clear. CARDIOVASCULAR: Within normal limits. ABDOMEN: Soft to palpate. No organomegaly. No tenderness. No masses. ADMITTING DIAGNOSES: 1. Dyspepsia, nausea. 2. Occult gastrointestinal bleeding. PLAN: EGD. MTDD
[2017-11-20] MEDS ORDERED: Propofol 200 MG/20 ML VIAL ONE (15:13)
[2017-11-20] MEDS ORDERED: Lidocaine 1% PF 5 ML VIAL ONE (15:13)
--- NOTE | 2017-11-21 06:22 | OP ---
DATE OF SURGERY: 11/20/2017 OPERATIVE PROCEDURE: Esophagogastroduodenoscopy. PREOPERATIVE DIAGNOSES: A 72-year-old female admitted with dyspepsia, nausea, and had a st ool for occult blood. The stool came back positive for an occult blood. The patient has no history of melena. The patient had a colonoscopy in 09/2016 because of family history of colon cancer. Melany use of dyspepsia, nausea, and also occult GI bleeding, she underwent esophagogastroduodenoscopy. POSTOPERATIVE DIAGNOSES: 1. Hiatus hernia. 2. At the gastroesophageal junction, the mucosa is erythematous and friable indicative of esophagiti s. 3. Gastric polyp over the gastric fundus, not biopsied. 4. Antral gastritis. No biopsies were obtained as the patient is on anticoagulation. PROCEDURE NOTE: The patient was placed on the left lateral position and was given sedation by Anesth esia Department. Also, the throat was anesthetized with Cetacaine spray. A Pentax video gastroscope under direct vision was passed down the oropharynx, past the GE junction into the stomach, and subse quently into the descending duodenum. The esophageal mucosa appears normal except for the GE junctio n. The mucosa is kind of friable and erythematous. The fundus showed a gastric polyp. The polyp wa s not biopsied because she is on anticoagulation. The gastric body, no pathology seen. The gastric antrum does show gastritis with multiple linear erythematous streaks. The duodenal bulb and descendi ng duodenum, no pathology seen. The stomach was decompressed and the scope removed. DISCHARGE PLANNING: This is a 72-year-old female who came for an EGD because of dyspepsia, nausea, and occult GI bleeding. The EGD showed gastritis, hiatus hernia, gastric polyp. DISCHARGE RECOMMENDATIONS: 1. The patient will be advised to continue the pantoprazole as before. 2. The patient will come back to me in 2 weeks for a followup visit.
== END 2017-11-20 10:40 | disposition home or self-care (01) ==
LOC: SDC 07:25
PROVIDERS: ATTEND Internal Medicine Gastroenterology
PROC: 0DJ08ZZ Inspection of Upper Intestinal Tract, Via Natural or Artificial Opening Endoscopic (ICD-10-PCS; principal; 2017-11-20)
DX: K29.70 Gastritis, unspecified, without bleeding (principal); K31.7 Polyp of stomach and duodenum; K44.9 Diaphragmatic hernia without obstruction or gangrene; I12.9 Hypertensive chronic kidney disease with stage 1 through stage 4 chronic kidney disease, or unspecified chronic kidney disease; N18.9 Chronic kidney disease, unspecified; F31.9 Bipolar disorder, unspecified; Z79.01 Long term (current) use of anticoagulants; H40.9 Unspecified glaucoma; Z98.890 Other specified postprocedural states; Z87.19 Personal history of other diseases of the digestive system; Z86.73 Personal history of transient ischemic attack (TIA), and cerebral infarction without residual deficits; Z85.3 Personal history of malignant neoplasm of breast
CPT/HCPCS: J2001; J2704

== ENCOUNTER 2018-03-27 10:09 | Outpatient (CLI) | payer MEDICARE, MEDICAID | END 2018-03-27 10:10 | disposition home or self-care (01) | LOC: BICMAMMO 10:09 | PROVIDERS: ATTEND Student in an Organized Health Care Education/Training Program | DX: Z13.820 Encounter for screening for osteoporosis (principal); M85.852 Other specified disorders of bone density and structure, left thigh | CPT/HCPCS: 77080 ==

== ENCOUNTER 2018-04-29 20:33 | Inpatient (IN) | payer MEDICARE, MEDICAID ==
[2018-04-29 21:57] LABS: #Eosinphils 0.3 thou/uL (0.0-0.7); #Lymphocytes 0.9 thou/uL (1.20-3.40); #Monocytes 0.4 thou/uL (0.11-0.59); #Neutrophils 3.5 thou/uL (1.40-6.50); %Eosinophils 5.2 % (0.0-10.0); %Lymphocytes 17.8 % (21.0-51.0); %Monocytes 8.5 % (0.0-10.0); %Neutrophils 68.5 % (42.0-75.0); Mean Corpuscular HGB CONC 32.2 g/dL (32.0-36.0); Mean Corpuscular Hemoglobin 33.3 pg (27.0-31.0); Mean Platelet Volume 8.5 fL (7.4-10.4); Platelet Count 205 thou/uL (130-400); RBC Distribution Width 16.2 % (11.5-14.5); Red Blood Cell (RBC) Count 3.92 mill/uL (4.20-5.40); White Blood Cell (WBC) Count 5.2 thou/uL (4.8-10.8)
[2018-04-29 22:20] LABS: ALT (SGPT) 20 U/L (8-55); AST (SGOT) 29 U/L (5-34); Albumin 4.3 g/dL (3.4-4.8); Alkaline Phosphatase 245 U/L (40-150); Anion Gap 22 mmol/L (10-20); BUN (Urea Nitrogen) 63 mg/dL (9.8-20.1); Bilirubin, Total 0.5 mg/dL (0.2-1.2); CK (CPK) 67 U/L (29-168); Calc. Creatinine Clearance 0 mL/min (70-130); Calcium 9.9 mg/dL (7.8-10.44); Carbon Dioxide 26 mmol/L (23-31); Chloride 97 mmol/L (98-107); Estimated GFR-MDRD 4; Globulin 2.5 g/dL (2.4-3.5); Glucose 189 mg/dL (80-115); Protein, Total 6.8 g/dL (6.0-8.3); Sodium 139 mmol/L (136-145)
--- NOTE | 2018-04-29 22:23 | RAD ---
PORTABLE AP CHEST X-RAY 04/29/18 HISTORY: Elevated blood pressure for the past few days. Patient missed dialysis appointment. COMPARISON: 10/22/17. FINDINGS: Multiple vascular stents again overlie the left upper chest and left upper extremity. Cardiac silhouette is enlarged. There is lucency in the retrocardiac region which may be related to a hiatal hernia. Pulmonary vasculature is within normal limits and the lungs are clear. The most infer ior aspect left lateral costophrenic angle is excluded from view. Vascular calcifications are seen in the thoracic aorta. The bibasilar pleural and parenchymal changes on the prior study have resolved. No other interval change. IMPRESSION: 1. No acute cardiopulmonary process. 2. Cardiomegaly. 3. Hiatal hernia. POS: [facility]
[2018-04-29 22:24] LABS: CKMB 3.3 ng/mL (0-6.6); Troponin I 0.061 ng/mL (< 0.028)
[2018-04-29] MEDS ORDERED: Nitroglycerin 2% Ointment 1 INCH/1 GM Packet ONE (22:54)
--- NOTE | 2018-04-29 23:08 | PDOC.FPRHP ---
- History of Present Illness Chief Complaint: High BP, missed diaylsis History of Present Illness: Patient is a 72 yo F presenting with high blood pressures after missing diaylsis yesterday. She recorded BPs as high as 215/103 over the past [address] Blake. Patient endorses some SOB for the past two days. Made worse with exercise. She also endorses double vision the past two days that is off and on. She is currently not having vision changes. Patient denies headache, fever, N/V/D, or chest pain. ED Course: given nitro-bid tansdermal. Called Dr. Blake - he is aware patient is here. Routine Labs, EKG, and CXR. - Allergies/Adverse Reactions Allergies Allergy/AdvReac Type Severity Reaction Status Date / Time No Known Allergies Allergy Verified 10/22/17 22:21 - Home Medications Medication Instructions Recorded Confirmed Type Raloxifene HCl [Evista] 60 mg PO DAILY 03/29/15 11/19/17 History Sevelamer Carbonate [Renvela] 2,400 mg PO TID-WM 03/29/15 11/19/17 History Atorvastatin Calcium [Lipitor] 20 mg PO HS #0 tab 03/30/15 11/19/17 Rx Cetirizine HCl [Zyrtec] 10 mg PO DAILY 10/22/17 11/19/17 History Metoprolol Tartrate [Lopressor] 50 mg PO DAILY 10/22/17 11/19/17 History NIFEdipine [Procardia Xl] 30 mg PO DAILY 10/22/17 11/19/17 History Pantoprazole Sodium 20 mg PO DAILY 10/22/17 11/19/17 History Aspirin [Aspirin Chewable] 81 mg PO HS 11/19/17 11/19/17 History Benzonatate [Tessalon] 100 mg PO TID PRN 11/19/17 11/19/17 History Ubidecarenone [Co Q-10] 100 mg PO BID 11/19/17 11/19/17 History - History PMHx: breast cancer left breast tx with radiation, TIA, ESRD -MWF diaylsis- graft to left upper arm PSHx: lumpectomy and X3 biopsy of left breast FHx:mother - colon cancer; father - DM Social: bipolar disorder; denies smoking, alcohol or illicit drug use - Review of Systems General: reports: fatigue, other (endorses today only). denies: fever/chills, weight/appetite/sleep changes, night sweats Eyes: reports: vision changes (blurry vision the past 2 days) ENT: denies: nasal congestion, rhinorrhea Respiratory: reports: shortness of breath (made worse with exercise). denies: cough, congestion Cardiovascular: reports: edema (in feet for the past day). denies: chest pain, palpitation Gastrointestinal: reports: nausea. denies: vomiting, diarrhea, constipation, abdominal pain Genitourinary: reports: other (patient makes minimal urine) Skin: denies: rashes, lesions, itching Musculoskeletal: reports: pain (chronic back pain due to scoliosis). denies: tenderness, stiffness Neurological: denies: numbness, syncope Psychological: denies: anxiety, depression - Vital signs BP: [187,79] HR: [73] RR: [16] Tmax: [97.9] Pox: [98]% on [RA] Wt: [58.2kg] - Physical Exam Constitutional: NAD, awake, alert and oriented HEENT: normocephalic and atraumatic Heart: RRR, normal S1/S2, no murmurs/rubs/gallops, pulses present Lungs: no respiratory distress, no wheezing -Lungs: crackles in bilateral lung bases Abdomen: soft, bowel sounds present, other (mild TTP in RUQ and RLQ) Musculoskeletal: normal tone, ROM grossly normal Neurological: no focal deficit, CN II-XII intact Skin: no rash/lesions -Skin: trace edema in bilateral lower extremities Psychiatric: normal mood and affect FMR H&P: Results - Labs Result Diagrams: 04/29/18 21:53 04/29/18 21:53 Lab results: WBC 5.2 thou/uL (4.8-10.8) 04/29/18 21:53 Hgb 13.0 g/dL (12.0-16.0) 04/29/18 21:53 Hct 40.6 % (36.0-47.0) 04/29/18 21:53 MCV 103.0 fL (78.0-98.0) H 04/29/18 21:53 Plt Count 205 thou/uL (130-400) 04/29/18 21:53 Neutrophils % 68.5 % (42.0-75.0) 04/29/18 21:53 Sodium 139 mmol/L (136-145) 04/29/18 21:53 Potassium 6.0 mmol/L (3.5-5.1) H 04/29/18 21:53 Chloride 97 mmol/L (98-107) L 04/29/18 21:53 Carbon Dioxide 26 mmol/L (23-31) 04/29/18 21:53 BUN 63 mg/dL (9.8-20.1) H 04/29/18 21:53 Creatinine 9.28 mg/dL (0.6-1.1) H 04/29/18 21:53 Glucose 189 mg/dL (80-115) H 04/29/18 21:53 Calcium 9.9 mg/dL (7.8-10.44) 04/29/18 21:53 Total Bilirubin 0.5 mg/dL (0.2-1.2) 04/29/18 21:53 AST 29 U/L (5-34) 04/29/18 21:53 ALT 20 U/L (8-55) 04/29/18 21:53 Alkaline Phosphatase 245 U/L (40-150) H 04/29/18 21:53 Creatine Kinase 67 U/L (29-168) 04/29/18 21:53 CK-MB (CK-2) 3.3 ng/mL (0-6.6) 04/29/18 21:53 Serum Total Protein 6.8 g/dL (6.0-8.3) 04/29/18 21:53 Albumin 4.3 g/dL (3.4-4.8) 04/29/18 21:53 FMR H&P: A/P - Problem List (1) ESRD (end stage renal disease) on dialysis Current Visit: Yes Status: Acute Code(s): N18.6 - END STAGE RENAL DISEASE; Z99.2 - DEPENDENCE ON RENAL DIALYSIS Assessment and Plan: - consulted Dr. Blake who is going to see the patient in the AM - plan for dialysis tomorrow - will monitor fluid status and respiratory status (2) Hyperkalemia Current Visit: Yes Status: Acute Code(s): E87.5 - HYPERKALEMIA Assessment and Plan: - will hold off on lowering level for now. Dr. Blake aware. - recheck BMP in the AM - medications made available if needed (3) HTN (hypertension) Current Visit: No Status: Acute Code(s): I10 - ESSENTIAL (PRIMARY) HYPERTENSION Assessment and Plan: - PRN hydralazine for BP over 180 SBP or DBP 110 - continue to monitor BPs (4) Bipolar disorder Current Visit: No Status: Acute Code(s): F31.9 - BIPOLAR DISORDER, UNSPECIFIED Assessment and Plan: - continue home meds - Plan Disposition/LOS: Admit to Inpatient Case discussed with Dr. Short CODE STATUS: FULL FMR H&P: Upper Level - Pertinent history 72 yo WF PMH ESRD on MWF HD, HTN, and bipolar. Presents with CC of BHATT and elevated BP. States she missed HD on Saturday due to car troubles. Was seen by PCP this morning who advised she go to ER. Became dyspnic at PT and was advised to go to ER. States she has had occasional blurry vision over past 2-3 days with elevated BP but denies vision change, STEEL, CP, or SOB at rest at time of presentation to ER. ER: Dr. Blake was consulted. Routine labs, EKG, and CXR taken. Received nitro paste in ER. - Pertinent findings Vitals: BP elevated 184/74. otherwise unremarkable. GEN: NAD CV: RRR, no murmur Pulm: Faint crackles at lung bases, normal effort Extremities: no edema Labs: Elevated potassium at 6.0. BNP 3000 CXR: Mild pulmonary vascular congestion, no effusion EKG: NSR. normal T-waves. - Plan Date/Time: 04/29/18 2743 I, Jori Aly MD, have evaluated this patient and agree with findings/plan as outlined by international account manager resident. Pertinent changes/additions are listed here. 1. Fluid overload 2/2 HD noncompliance: Dr. Blake consulted in ER. Plans for HD tomorrow. will monitor fluid status and respiratory status 2. Hyperkalemia 2/2 HD noncompliance: Dr. Blake aware. Repeat BMP at 0300. Will provide medications to cover if needed. 3. ESRD on HD: See #1 4. HTN urgency: Home medications. Hydralazine and labetalol PRN 5. Indeterminate troponin: Repeat x3 with EKG 6. CODE: Full 7. PPx: SCDs. Dispo: Inpatient tele, >[address] Short
[2018-04-30] MEDS ORDERED: Benzonatate 100 MG CAP PO PRN (00:08)
[2018-04-30] MEDS ORDERED: Bisacodyl 10 MG SUPP PR PRN (01:22)
[2018-04-30] MEDS ORDERED: Acetaminophen 650 MG Suppository PR PRN (01:22)
[2018-04-30] MEDS ORDERED: Bisacodyl 5 MG TAB PO PRN (01:22)
[2018-04-30] MEDS ORDERED: hydrALAZINE 20 MG/ML VIAL SLOW IVP PRN (01:22)
[2018-04-30] MEDS ORDERED: Ondansetron HCl/PF 4 MG/2 ML Vial IVP PRN (01:22)
[2018-04-30] MEDS ORDERED: Ondansetron ODT 4 MG TAB PO PRN (01:22)
[2018-04-30 01:24] VITALS: BMI 22.4
[2018-04-30 03:13] LABS: #Eosinphils 0.3 thou/uL (0.0-0.7); #Lymphocytes 0.9 thou/uL (1.20-3.40); #Monocytes 0.5 thou/uL (0.11-0.59); #Neutrophils 2.6 thou/uL (1.40-6.50); %Basophils 0.4 % (0.0-1.0); %Eosinophils 6.3 % (0.0-10.0); %Lymphocytes 20.4 % (21.0-51.0); %Monocytes 11.5 % (0.0-10.0); %Neutrophils 61.3 % (42.0-75.0); Hemoglobin 12.5 g/dL (12.0-16.0); Mean Corpuscular HGB CONC 32.2 g/dL (32.0-36.0); Mean Corpuscular Hemoglobin 33.5 pg (27.0-31.0); Mean Platelet Volume 8.2 fL (7.4-10.4); Platelet Count 181 thou/uL (130-400); RBC Distribution Width 16.2 % (11.5-14.5); Red Blood Cell (RBC) Count 3.73 mill/uL (4.20-5.40); White Blood Cell (WBC) Count 4.3 thou/uL (4.8-10.8)
[2018-04-30 03:38] LABS: CKMB 2.6 ng/mL (0-6.6); Troponin I 0.064 ng/mL (< 0.028)
[2018-04-30 03:46] LABS: Anion Gap 23 mmol/L (10-20); BUN (Urea Nitrogen) 66 mg/dL (9.8-20.1); Calc. Creatinine Clearance 5 mL/min (70-130); Calcium 9.5 mg/dL (7.8-10.44); Carbon Dioxide 25 mmol/L (23-31); Chloride 101 mmol/L (98-107); Estimated GFR-MDRD 4; Glucose 84 mg/dL (80-115); Sodium 143 mmol/L (136-145)
[2018-04-30] MEDS: Acetaminophen 325 MG TAB PO PRN ×4 (04:24→21:54)
[2018-04-30] MEDS: hydrALAZINE 20 MG/ML VIAL SLOW IVP PRN ×2 (04:35→18:13)
--- NOTE | 2018-04-30 06:06 | PDOC.FM ---
- Subjective Subjective: Patient reports still feeling as bad as when she first came in (pre HD). Her BPs climbed into the 190s overnight and she was given hydralazine. Patient says she does not always take her blood pressure meds at home. She also complained of a headache but denies vision changes. - Objective Vital Signs & Weight: Vital Signs (12 hours) Temp Pulse Resp BP Pulse Ox 04/30/18 04:35 81 04/30/18 04:00 98.2 F 81 16 198/88 H 93 L 04/30/18 01:14 98.6 F 73 16 176/80 H 97 Weight Weight 59.239 kg Result Diagrams: 04/30/18 03:05 04/30/18 03:05 <Leonor Blake - Last Filed: 04/30/18 12:09> - Objective Vital Signs & Weight: Vital Signs (12 hours) Temp Pulse Resp BP Pulse Ox 05/01/18 04:00 97.5 F L 78 16 160/70 H 95 Weight Admit Weight 59.239 kg Weight 58.922 kg I&O: 04/30/18 05/01/18 05/02/18 06:59 06:59 06:59 Intake Total 1200 Output Total 0 Balance 1200 Result Diagrams: 05/01/18 06:50 05/01/18 06:50 <Gallo Naylor - Last Filed: 05/01/18 08:31> Phys Exam - Physical Examination HEENT: PERRLA, sclera anicteric Neck: supple Respiratory: no wheezing, no rales, no rhonchi, clear to auscultation bilateral Psychiatric: normal affect, A&O x 3 Skin: no rash Deviation from normal: Presence of HD port in LUE <Leonor Blake - Last Filed: 04/30/18 12:09> Dx/Plan (1) ESRD (end stage renal disease) on dialysis Code(s): N18.6 - END STAGE RENAL DISEASE; Z99.2 - DEPENDENCE ON RENAL DIALYSIS Status: Acute (2) Hyperkalemia Code(s): E87.5 - HYPERKALEMIA Status: Acute (3) Bipolar disorder Code(s): F31.9 - BIPOLAR DISORDER, UNSPECIFIED Status: Acute (4) HTN (hypertension) Code(s): I10 - ESSENTIAL (PRIMARY) HYPERTENSION Status: Acute - Plan Plan: 72 yo F with ESRD on MWF HD presents with ARF due to a missed HD appointment. 1. Fluid overload 2/2 HD noncompliance: -Receiving dialysis this morning -Per Dr. Blake, may be discharged once BPs are under control, we appreciate his recommendations 2. Hyperkalemia 2/2 HD noncompliance: -K+ remains unchanged at 6.0 for am labs but pre-dialysis -Will reassess after HD treatment today with am labs 3. ESRD on HD: See #1 4. HTN urgency -Last reported BP was systolic 160s (per nurse), after receiving one dose of hydralazine -Reports headache but denies vision changes, given acetaminophen and continue to monitor -Will continue nifedipine and metoprolol tartrate to control blood pressure & continue to monitor 5. Indeterminate troponins most likley 2/2 to CKD and missed HD -Downtrending troponins .061->.064->.058 -CKMB have all been negative -Patient denies chest pain -Will continue to monitor and consider cardiac etiology if trops rise 6. CODE: Full 7. PPx: SCDs. Dispo: Inpatient tele, >2 midnights. Discussed plan with Dr. Naylor. <Leonor Blake - Last Filed: 04/30/18 12:09> Attending Addendum - Attending Addendum Date/Time: 05/01/18 0828 I personally evaluated the patient in Dialysis and discussed the management with Dr. Nanette Blake. I agree with the History, Examination, Assessment and Plan documented above with any addition or exceptions noted below. She complains of bilateral leg pain. Has both legs elevated. No visible or palpable abnormalities noted. BP has remained elevated to as high as systolic 198. Continue urgent dialysis and observe until BP acceptable and symptoms improved. Then may discharge per Dr. Adama Blake, Nephrology. [facility] <Gallo Naylor - Last Filed: 05/01/18 08:31>
[2018-04-30 06:50] LABS: CKMB 2.5 ng/mL (0-6.6); Troponin I 0.058 ng/mL (< 0.028)
[2018-04-30] MEDS ORDERED: NIFEdipine XL 30 MG TAB PO SCH (09:00)
[2018-04-30] MEDS ORDERED: Non-Formulary Item 1 EACH (Cetirizine Hcl [Zyrtec] 10 MG) PO SCH (09:00)
[2018-04-30] MEDS ORDERED: Metoprolol Tartrate 50 MG TAB PO SCH (09:00)
[2018-04-30] MEDS: Sevelamer Carbonate 800 MG TAB PO SCH ×3 (09:14→18:12)
[2018-04-30] MEDS: Loratadine 10 MG TAB PO SCH (12:23)
[2018-04-30] MEDS: Metoprolol Tartrate 50 MG TAB PO SCH ×2 (12:23→21:57)
[2018-04-30] MEDS: Ubidecarenone 50 MG CAP PO SCH ×2 (12:24→21:58)
--- NOTE | 2018-04-30 13:14 | CON ---
DATE OF CONSULTATION: 04/30/2018 HISTORY OF PRESENT ILLNESS: Ms. Little is a 72-year-old white female who with known history o f ESRD admitted for labile hypertension. The patient has been adjusting her BP meds and complained a bout her blood pressure running in the 200s systolics. For this reason, patient was admitted for fur ther management of her uncontrolled blood pressure. Please note she also missed her dialysis Saturday and I feel this is also contributing to the high blood pressure. REVIEW OF SYSTEMS: No chest pain. Occasional headache, no nausea, no vomiting, no diarrhea, no cons tipation, no productive cough, no fever or chills, no shortness of breath, no gross hematuria, no dys uria, no urinary frequency, no abdominal pain, no ear ache. Appetite and energy level is fair. No h ematochezia, no melena. HOME MEDICATIONS: Included Evista 60 mg daily, sevelamer 800 mg 2 tabs t.i.d. with meals, atorvastat in 20 mg at bedtime, metoprolol tartrate? 50 mg daily, Procardia 30 mg XL tab daily, benzonatate 100 mg t.i.d. p.r.n., coenzyme Q 100 mg p.o. b.i.d. 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 She has also history of osteopor osis and hypertension. PAST SURGICAL HISTORY: 1. Status post section. 2. Status post AV fistula placement. 3. Status post colonoscopy. 4. Status post bilateral tubal ligation. 5. Status post cuffed hemodialysis catheter placement. ALLERGIES: None. TRAUMA: None. IMMUNIZATIONS: Up to date. HOSPITALIZATIONS: Please see past medical history. FAMILY HISTORY: No family history of ESRD. SOCIAL HISTORY: Patient is , 2 children, lives in [place]. Status post multiple blood transfu sions. Currently, no smoking or alcohol intake, No IV drug use. Sedentary lifestyle. PHYSICAL EXAMINATION: VITAL SIGNS: Blood pressure is 198/88 - before BP meds, heart rate 81, respiratory rate 16, temperat ure 98.2, pulse oximetry 93%. GENERAL: Awake, alert, comfortable, not in distress. SKIN: Adequate turgor. HEENT: Pinkish conjunctivae, anicteric sclerae. NECK: No neck mass, no carotid bruits, no JVD. CHEST: No deformities. LUNGS: Clear breath sounds, no wheezing, no crackles. HEART: Normal sinus rhythm. No murmur, no gallops or rubs. ABDOMEN: Globular, soft, nontender. No masses. EXTREMITIES: No edema, no deformities. LABORATORY DATA: On 04/29/2018, chest x-ray showed no acute cardiopulmonary process. On 04/30/2018, white count 4.2, hemoglobin 12.5, sodium 143, potassium , BUN 66, creatinine 9.52, GFR 4 mL per minute. Calcium 9.5, troponin I 0.058. CK 2.5. ASSESSMENT AND PLAN: 1. Labile hypertension. Resume back her blood pressure meds. Adjust blood pressure medication as n eeded. My plan is to increase her Lopressor tartrate to 50 mg tab b.i.d. Resume back her nifedipine 30 mg XL tab daily. 2. End-stage renal disease, stable. We will continue current hemodialysis on Saturday, Saturday, and Saturday. Fluid removal as tolerated. I am currently at the bedside supervising her dialysis. Revthierry reyes of the last Kt/V suggests she is adequately dialyzed with the current dialysis regimen. Overall, agree with current management.
--- NOTE | 2018-04-30 19:06 | PDOC.FM ---
- Subjective Subjective: No acute events overnight. Patient reports feeling better after HD and no headache. - Objective Vital Signs & Weight: Vital Signs (12 hours) Temp Pulse Resp BP BP Pulse Ox 04/30/18 18:34 119/57 L 04/30/18 18:13 83 192/80 H 04/30/18 15:21 97.9 F 71 17 174/72 H 97 04/30/18 11:53 97.5 F L 76 17 169/72 H 97 04/30/18 07:20 97.8 F 84 18 96 Weight Admit Weight 59.239 kg Weight 59.239 kg I&O: 04/29/18 04/30/18 05/01/18 06:59 06:59 06:59 Intake Total 720 Balance 720 Result Diagrams: 05/01/18 06:50 05/01/18 06:50 <Leonor Blake - Last Filed: 05/01/18 14:12> - Objective Vital Signs & Weight: Vital Signs (12 hours) Temp Pulse Resp BP BP Pulse Ox 05/01/18 12:55 98.2 F 80 19 130/60 97 05/01/18 09:02 91 132/88 05/01/18 08:31 98.3 F 91 18 132/88 95 05/01/18 04:00 97.5 F L 78 16 160/70 H 95 Weight Admit Weight 59.239 kg Weight 58.922 kg I&O: 04/30/18 05/01/18 05/02/18 06:59 06:59 06:59 Intake Total 1200 Output Total 0 Balance 1200 Result Diagrams: 05/01/18 06:50 05/01/18 06:50 <Gallo Naylor - Last Filed: 05/01/18 15:43> Phys Exam - Physical Examination Constitutional: NAD HEENT: PERRLA, sclera anicteric Respiratory: no wheezing, no rales, no rhonchi Cardiovascular: no significant murmur Psychiatric: normal affect, A&O x 3 <Leonor Blake - Last Filed: 05/01/18 14:12> Dx/Plan (1) ESRD (end stage renal disease) on dialysis Code(s): N18.6 - END STAGE RENAL DISEASE; Z99.2 - DEPENDENCE ON RENAL DIALYSIS Status: Acute (2) Hyperkalemia Code(s): E87.5 - HYPERKALEMIA Status: Acute (3) Bipolar disorder Code(s): F31.9 - BIPOLAR DISORDER, UNSPECIFIED Status: Acute (4) HTN (hypertension) Code(s): I10 - ESSENTIAL (PRIMARY) HYPERTENSION Status: Acute - Plan Plan: 72 yo F with ESRD on MWF HD presents with ARF due to a missed HD appointment. 1. Fluid overload 2/2 HD noncompliance: -Received HD yesterday -Improved condition -Dr. Blake consulted, will discharge today b/o improved pressures 2. Hyperkalemia 2/2 HD noncompliance: -K+ improved 3. ESRD on HD: See #1 -Creatinine improved after HD 4. HTN urgency -BPs have been in 160s -Sending home rx for inc in Amlodipine 10mg po daily and metoprolol tartrate BID 5. Indeterminate troponins most likley 2/2 to CKD and missed HD -Downtrending troponins .061->.064->.058 -CKMB have all been negative -Patient denies chest pain -Will continue to monitor and consider cardiac etiology if trops rise 6. CODE: Full 7. PPx: SCDs. 8. Med change: Starting on warfarin 5mg po BID Dispo: Discharge to home today. Will follow up with Dr. Blake tomorrow at HD. Discussed plan with Dr. Naylor. <Leonor Blake - Last Filed: 05/01/18 14:12> Attending Addendum - Attending Addendum Date/Time: 05/01/18 0135 I personally evaluated the patient and discussed the management with Dr. Nanette Blake. I agree with the History, Examination, Assessment and Plan documented above with any addition or exceptions noted below. She feels fine this am. Leg pain, and dyspnea are resolved. BP down to 119 systolic. Amlodipine dose adjusted upward to 10 mg and home on that and metoprolol tartrate [address] Adama Blake, nephrology. <Gallo Naylor - Last Filed: 05/01/18 15:43>
[2018-04-30] MEDS ORDERED: Atorvastatin Calcium 20 MG TAB PO SCH (21:00)
[2018-04-30] MEDS ORDERED: Temazepam 15 MG CAP PO PRN (21:52)
[2018-05-01] MEDS: Acetaminophen 325 MG TAB PO PRN (05:46)
[2018-05-01 07:18] LABS: #Basophils 0.1 thou/uL (0.0-0.2); #Eosinphils 0.2 thou/uL (0.0-0.7); #Lymphocytes 0.9 thou/uL (1.20-3.40); #Monocytes 0.4 thou/uL (0.11-0.59); #Neutrophils 2.3 thou/uL (1.40-6.50); %Basophils 1.6 % (0.0-1.0); %Eosinophils 4.6 % (0.0-10.0); %Lymphocytes 22.5 % (21.0-51.0); %Monocytes 11.5 % (0.0-10.0); %Neutrophils 59.7 % (42.0-75.0); Hemoglobin 13.5 g/dL (12.0-16.0); Mean Corpuscular HGB CONC 31.3 g/dL (32.0-36.0); Mean Corpuscular Hemoglobin 33.1 pg (27.0-31.0); Mean Platelet Volume 8.7 fL (7.4-10.4); Platelet Count 199 thou/uL (130-400); RBC Distribution Width 16.1 % (11.5-14.5); Red Blood Cell (RBC) Count 4.07 mill/uL (4.20-5.40); White Blood Cell (WBC) Count 3.9 thou/uL (4.8-10.8)
[2018-05-01 07:36] LABS: ALT (SGPT) 14 U/L (8-55); AST (SGOT) 19 U/L (5-34); Albumin 3.6 g/dL (3.4-4.8); Alkaline Phosphatase 200 U/L (40-150); Anion Gap 19 mmol/L (10-20); BUN (Urea Nitrogen) 37 mg/dL (9.8-20.1); Bilirubin, Total 0.6 mg/dL (0.2-1.2); Calc. Creatinine Clearance 8 mL/min (70-130); Calcium 9.7 mg/dL (7.8-10.44); Carbon Dioxide 23 mmol/L (23-31); Chloride 100 mmol/L (98-107); Estimated GFR-MDRD 6; Globulin 2.3 g/dL (2.4-3.5); Glucose 82 mg/dL (80-115); Potassium 5.3 mmol/L (3.5-5.1); Protein, Total 5.9 g/dL (6.0-8.3); Sodium 137 mmol/L (136-145)
--- NOTE | 2018-05-01 08:57 | PRG ---
DATE OF SERVICE: 05/01/2018 SUBJECTIVE: Ms. Little is a 72-year-old white female with known history of ESRD. She was adm itted for labile hypertension. Please note that prior to admission, she missed her dialysis treatmen t. She voices no new complaints today except for a slight headache. Her blood pressure is now accep table. She has been resumed back on her metoprolol and amlodipine. PHYSICAL EXAMINATION: VITAL SIGNS: Blood pressure is 132/88 with a heart rate of 91, respiratory rate 18, temperature 98.3 , pulse ox 95%. GENERAL: Noted to be awake, alert, comfortable, not in distress. SKIN: Adequate turgor. HEENT: She has pinkish conjunctivae, anicteric sclerae. NECK: No neck mass, no carotid bruits, no JVD. CHEST: No deformities. LUNGS: Clear breath sounds. No wheezing, no crackles. HEART: Normal sinus rhythm. No murmur, no gallops, no rubs. ABDOMEN: Globular, soft, nontender, no masses. Positive for bowel sounds. EXTREMITIES: No edema, no deformities. MEDICATIONS: 05/01/2018 - Reviewed. LABORATORY: 05/01/2018 - White count 3.9, hemoglobin 13.5. Sodium 137, potassium 5.3, chloride 100, carbon dioxide 23, BUN 37, creatinine 6.37. LFTs normal. Albumin 3.6. ASSESSMENT AND PLAN: 1. Labile hypertension, much improved. Resumption of her regular blood pressure medications. The p atient has been counseled regarding compliance with intake of her blood pressure meds. Continue curr ent dose of metoprolol and amlodipine. 2. End-stage renal disease, stable. Continue current Saturday, Saturday, Saturday hemodialysis. Again , advised the patient on compliance. No indication for any emergent hemodialysis. 3. Mild hyperkalemia. Continue to observe dietary advice. ADDENDUM: Please note I reviewed her medications this morning 05/01/2018. I agree with current man agement.
[2018-05-01] MEDS ORDERED: Amlodipine 10 MG TAB PO SCH (09:00)
[2018-05-01] MEDS: Metoprolol Tartrate 50 MG TAB PO SCH (09:02)
[2018-05-01] MEDS: Loratadine 10 MG TAB PO SCH (09:02)
[2018-05-01] MEDS: Sevelamer Carbonate 800 MG TAB PO SCH ×2 (09:02→12:56)
[2018-05-01] MEDS: Ubidecarenone 50 MG CAP PO SCH (09:03)
[2018-05-01 12:59] VITALS: BP 130/60; TEMP 98.2
--- NOTE | 2018-05-02 00:56 | DIS-2 ---
DATE OF ADMISSION: 04/29/2018 DATE OF DISCHARGE: 05/01/2018 ADMITTING ATTENDING: Anil Short M.D. DISCHARGE ATTENDING: Gallo Naylor M.D. RESIDENT: Leonor Blake M.D. CONSULTATIONS: Nephrology, Dr. Driss Blake. PROCEDURES: None. PRIMARY DIAGNOSES: Fluid overload secondary to end-stage renal disease, noncompliance; hyperkalemia; hypertensive urgency. SECONDARY DIAGNOSES: History of transient ischemic attack, bipolar disorder, insomnia. DISCHARGE MEDICATIONS: 1. Amlodipine 10 mg p.o. daily. 2. Eliquis 5 mg p.o. b.i.d. 3. Metoprolol tartrate 50 mg p.o. b.i.d. 4. Renvela 2400 mg p.o. t.i.d. with meals. 5. Lipitor 20 mg p.o. at bedtime. 6. Aspirin 81 mg p.o. at bedtime. 7. CoQ10 of 100 mg p.o. daily. 8. Temazepam 15 mg p.o. at bedtime as needed. 9. Women's multivitamin tablet 1 tab oral daily. 10. Latanoprost eyedrop 7.5 mL daily. 11. Pristiq 25 mg p.o. daily. 12. Cyclobenzaprine 5 mg p.o. daily. DISCONTINUED MEDICATIONS: 1. Metoprolol succinate 50 mg p.o. daily. 2. Xarelto 20 mg p.o. daily. 3. Amlodipine 2.5 mg p.o. b.i.d. HISTORY OF PRESENT ILLNESS AND HOSPITAL COURSE: The patient is a 72-year-old female with past medica l history of end-stage renal disease on Saturday, Saturday, Saturday hemodialysis, who came in for fluid overload and hyperkalemia after missing her Saturday hemodialysis session. Chest x-ray showed no acut e cardiopulmonary processes, cardiomegaly and hiatal hernia. In ED, Nitro-Bid transdermal was given to lower blood pressures. The patient was admitted for hemodialysis. During hospital course, the nga rosales's blood pressures ranged with a high of systolic up to 190s with associated headache. Denied a ny vision changes. She was given hydralazine 10 mg which lowered her blood pressure. She received h emodialysis the next day with improvement of electrolyte abnormalities and blood pressure. Dr. Blake w as consulted, who is her adult live in caregiver who change medications to metoprolol tartrate and increase amlo dipine dose, discontinue the Xarelto, and added Eliquis. Overall, patient's blood pressures improved after hemodialysis in addition to troponin levels and also electrolyte abnormalities. Dr. Blake recom mended the patient following up the next day during hemodialysis appointment. Discussed further medi cation management and for followup. DISPOSITION: Stable. DISCHARGE INSTRUCTIONS: 1. Location: Home. 2. Diet: Resume diet prior to hospital. 3. Activity: Ad sujata. 4. Follow up with PCP in 7-10 days and follow up with Dr. Blake, hemodialysis appointment tomorrow.
== END 2018-05-01 16:27 | disposition home or self-care (01) | DRG 640 ==
LOC: ERS 20:33 → 2NO 23:15
PROVIDERS: ADMIT Family Medicine; ATTEND Family Medicine
PROC: 5A1D70Z Performance of Urinary Filtration, Intermittent, Less than 6 Hours Per Day (ICD-10-PCS; principal; 2018-04-30)
DX: E87.79 Other fluid overload (principal); N18.6 End stage renal disease; I12.0 Hypertensive chronic kidney disease with stage 5 chronic kidney disease or end stage renal disease; E87.5 Hyperkalemia; I16.0 Hypertensive urgency; M81.0 Age-related osteoporosis without current pathological fracture; F31.9 Bipolar disorder, unspecified; Z91.15 Patient's noncompliance with renal dialysis; Z91.14 Patient's other noncompliance with medication regimen; Z86.73 Personal history of transient ischemic attack (TIA), and cerebral infarction without residual deficits; Z92.3 Personal history of irradiation; Z83.3 Family history of diabetes mellitus; Z80.0 Family history of malignant neoplasm of digestive organs
CPT/HCPCS: 36415; 71045; 80048; 80053; 82553; 83880; 84484; 85025; 90935; 93005; 93010; 94760; A4216; G0257; G8978-GP-CK; G8979-GP-CJ; J0360

== ENCOUNTER 2018-06-14 11:20 | Emergency (ER) | payer MEDICARE, MEDICAID ==
[2018-06-14 12:22] LABS: ALT (SGPT) 40 U/L (8-55); AST (SGOT) 41 U/L (5-34); Albumin 3.4 g/dL (3.4-4.8); Alkaline Phosphatase 205 U/L (40-150); Anion Gap 21 mmol/L (10-20); BUN (Urea Nitrogen) 64 mg/dL (9.8-20.1); Band 4 % (5-11); Bilirubin, Total 0.7 mg/dL (0.2-1.2); Calc. Creatinine Clearance 0 mL/min (70-130); Calcium 8.7 mg/dL (7.8-10.44); Carbon Dioxide 19 mmol/L (23-31); Chloride 97 mmol/L (98-107); Eosinophils 3 % (0-10); Estimated GFR-MDRD 5; Globulin 2.8 g/dL (2.4-3.5); Glucose 109 mg/dL (80-115); Hemoglobin 10.9 g/dL (12.0-16.0); Lymphocytes 13 % (21-51); MDiff Complete? YES; Mean Corpuscular HGB CONC 32.9 g/dL (32.0-36.0); Mean Corpuscular Hemoglobin 33.6 pg (27.0-31.0); Mean Platelet Volume 7.2 fL (7.4-10.4); Metamyelocyte 1 % (0-0); Monocytes 5 % (0-10); Neutrophil 74 % (42-75); Platelet Count 322 thou/uL (130-400); Potassium 6.1 mmol/L (3.5-5.1); Protein, Total 6.2 g/dL (6.0-8.3); RBC Distribution Width 14.5 % (11.5-14.5); Red Blood Cell (RBC) Count 3.24 mill/uL (4.20-5.40); Sodium 131 mmol/L (136-145); White Blood Cell (WBC) Count 5.4 thou/uL (4.8-10.8)
[2018-06-14 12:25] LABS: CKMB 3.8 ng/mL (0-6.6); Troponin I 0.064 ng/mL (< 0.028)
[2018-06-14] MEDS ORDERED: Calcium Gluc 4.6 MEQ/10 ML (100 MG/ML) ONE (12:39)
== END 2018-06-14 13:03 | disposition home or self-care (01) ==
LOC: ERS 11:20
DX: N18.6 End stage renal disease (principal); E87.5 Hyperkalemia; F31.9 Bipolar disorder, unspecified; Z99.2 Dependence on renal dialysis; Z79.899 Other long term (current) drug therapy; Z79.82 Long term (current) use of aspirin
CPT/HCPCS: 36415; 80053; 82553; 83880; 84484; 85025; 93005

== ENCOUNTER 2018-09-02 09:52 | Outpatient (CLI) | payer MEDICARE, MEDICAID | END 2018-09-02 09:53 | disposition home or self-care (01) | LOC: BICMAMMO 09:52 | PROVIDERS: ATTEND Family Medicine | DX: Z12.31 Encounter for screening mammogram for malignant neoplasm of breast (principal); R92.1 Mammographic calcification found on diagnostic imaging of breast; Z80.3 Family history of malignant neoplasm of breast; Z85.3 Personal history of malignant neoplasm of breast | CPT/HCPCS: 77063; 77067 ==

== ENCOUNTER 2018-12-30 13:31 | Outpatient (CLI) | payer MEDICARE, MEDICAID ==
--- NOTE | 2018-12-23 09:24 | HP ---
HISTORY OF PRESENT ILLNESS: Dianna Little is a 73-year-old female, dialyzes Saturday, Saturday, Saturday, on Eliquis for TIAs, never having had a stroke. She has a left arm dialysis access, initially I placed is a fistula, cephalic vein, August 2006, but in 2007, it had problems and I revised it to a graft. She had inadequate vein right arm for a fistula. Since June 2008, she utilized her left arm dialysis graft. She has seen Dr. Blackburn and other interventionalist and has developed aneurysms of the graft. She has stents in the access. Plan is to place a hemodialysis catheter and to revise her left arm graft after she has been off Eliquis for two days prior. I have talked to Dr. Blackburn and her arterial inflow and venous outflow are good and we will plan placement of a new left arm graft. She understands risks and benefits and consents. They can start using her graft for dialysis 3 to 4 weeks post surgery. MEDICATIONS: Eliquis, Renvela, amlodipine, atorvastatin. ALLERGIES: NONE. PAST MEDICAL HISTORY: End-stage renal disease, on maintenance dialysis Saturday, Saturday, and Saturday, history of left breast DCIS, status post partial mastectomy, compliant on followup mammograms and exams, no evidence of recurrent disease, depression, glaucoma, hypertension, bipolar disorder. SOCIAL HISTORY: The patient lives in [place]. She lives alone. [facility] [address] [place] [address], Saturday, Saturday, and Saturday. PAST SURGICAL HISTORY: Hernia repair in 1953, past colonoscopies, tubal ligation, wide local excision of left breast DCIS in September 2012, 2005 left arm fistula, June 2008 left arm graft conversion. REVIEW OF SYSTEMS: Ten-point noncontributory. ALLERGIES: NO MEDICAL. PHYSICAL EXAMINATION: VITAL SIGNS: 140 pounds, 65 inches, 158/85, 89, and 98.2 degrees. HEAD, EARS, EYES, NOSE, AND THROAT: Unremarkable. LUNGS: Clear to auscultation. CARDIAC: Regular rate and rhythm without murmur or gallop. ABDOMEN: Soft and nontender. No masses. EXTREMITIES: No edema. NEUROLOGIC: Intact. Palpable radial pulses bilaterally. Left upper arm graft with an aneurysm of the antecubital fossa over the graft. This compresses easily and a stent is palpated beneath. She has a thrombosed aneurysm upper arm graft. ASSESSMENT AND PLAN: 1. Dysfunctional dialysis graft, left upper arm. We will plan revision and placement of a temporary dialysis catheter until the new graft heals and is accessible. 2. On Eliquis, hold 48 hours prior to surgery. 3. History of transient ischemic attack. 4. Bipolar disorder. Job ID: [id number]
[2018-12-29 16:42] VITALS: BMI 21.6
[2018-12-30 11:09] LABS: #Eosinphils 0.3 thou/uL (0.0-0.7); #Lymphocytes 0.6 thou/uL (1.20-3.40); #Monocytes 0.3 thou/uL (0.11-0.59); #Neutrophils 2.1 thou/uL (1.40-6.50); %Basophils 0.4 % (0.0-1.0); %Eosinophils 9.1 % (0.0-10.0); %Lymphocytes 17.9 % (21.0-51.0); %Monocytes 8.8 % (0.0-10.0); %Neutrophils 63.9 % (42.0-75.0); Mean Corpuscular HGB CONC 30.6 g/dL (32.0-36.0); Mean Corpuscular Hemoglobin 29.8 pg (27.0-31.0); Mean Corpuscular Volume 97.6 fL (78.0-98.0); Mean Platelet Volume 8.1 fL (7.4-10.4); Platelet Count 253 thou/uL (130-400); Red Blood Cell (RBC) Count 3.68 mill/uL (4.20-5.40); White Blood Cell (WBC) Count 3.3 thou/uL (4.8-10.8)
[2018-12-30 11:25] LABS: Anion Gap 15 mmol/L (10-20); BUN (Urea Nitrogen) 25 mg/dL (9.8-20.1); Calc. Creatinine Clearance 7 mL/min (70-130); Calcium 9.6 mg/dL (7.8-10.44); Carbon Dioxide 31 mmol/L (23-31); Chloride 103 mmol/L (98-107); Estimated GFR-MDRD 6; Glucose 101 mg/dL (83-110); Potassium 4.4 mmol/L (3.5-5.1); Sodium 145 mmol/L (136-145)
--- NOTE | 2018-12-30 12:56 | PRG ---
DATE OF SERVICE: 12/30/2018 Dianna Little lives at home, is on Eliquis. Has held her Eliquis Saturday, Saturday, Saturday, and this morning for surgery today; however, she ate breakfast this morning. She reports for revision of left arm graft with extension of a new graft laterally as arterial inflow. Venous outflow was good by previous fistulogram. She has stents in this graft and aneurysms. Plan is to revise this and place hemodialysis catheter, but we will reschedule this next week since she ate breakfast this morning. She will resume her Eliquis today and hold her Eliquis Saturday, Saturday, Saturday, and Saturday morning next week prior to surgery on Saturday at noon. Job ID: [id number]
== END 2018-12-30 13:32 | disposition home or self-care (01) ==
LOC: LABBT 13:31 → EDSTATUS 01-06 10:30
PROVIDERS: ATTEND Specialist
DX: Z01.812 Encounter for preprocedural laboratory examination (principal); T82.590A Other mechanical complication of surgically created arteriovenous fistula, initial encounter; N18.6 End stage renal disease
CPT/HCPCS: 36415; 80048; 85025; 86850; 86900; 86901

== ENCOUNTER 2019-01-06 12:59 | Day surgery (SDC) | payer MEDICARE, MEDICAID ==
[2019-01-05 13:16] VITALS: BMI 23.3
[~2019-01-06 12:59] MED LIST: Bupivacaine HCl 0.5%/Epinephrine 1:200,000/PF 30 ml Vial ONE; Heparin 10,000 UNITS/ 10 ML VIAL ONE; PROPOFOL 200 MG/20 ML VIAL ONE
[2019-01-06] MEDS ORDERED: Midazolam HCl 2 mg/2 ml Vial ONE ×2 (14:17→15:37)
[2019-01-06 14:56] LABS: #Eosinphils 0.4 thou/uL (0.0-0.7); #Lymphocytes 2.2 thou/uL (1.20-3.40); #Monocytes 0.6 thou/uL (0.11-0.59); #Neutrophils 2.8 thou/uL (1.40-6.50); %Basophils 0.7 % (0.0-1.0); %Monocytes 9.6 % (0.0-10.0); %Neutrophils 46.7 % (42.0-75.0); Hemoglobin 11.4 g/dL (12.0-16.0); Mean Corpuscular HGB CONC 30.6 g/dL (32.0-36.0); Mean Corpuscular Hemoglobin 29.7 pg (27.0-31.0); Mean Corpuscular Volume 96.9 fL (78.0-98.0); Mean Platelet Volume 8.1 fL (7.4-10.4); Platelet Count 316 thou/uL (130-400); RBC Distribution Width 17.6 % (11.5-14.5); Red Blood Cell (RBC) Count 3.83 mill/uL (4.20-5.40)
[2019-01-06 15:18] LABS: Anion Gap 15 mmol/L (10-20); BUN (Urea Nitrogen) 16 mg/dL (9.8-20.1); Calc. Creatinine Clearance 11 mL/min (70-130); Carbon Dioxide 30 mmol/L (23-31); Chloride 99 mmol/L (98-107); Estimated GFR-MDRD 9; Glucose 84 mg/dL (83-110); Potassium 4.4 mmol/L (3.5-5.1); Sodium 140 mmol/L (136-145)
[2019-01-06] MEDS ORDERED: Bupivacaine HCl 0.5%/Epinephrine 1:200,000/PF 30 ml Vial ONE (15:37)
[2019-01-06] MEDS ORDERED: Fentanyl 100 MCG/2 ML VIAL ONE (15:37)
[2019-01-06] MEDS ORDERED: Protamine Sulfate 50 MG/5 ML VIAL ONE (15:37)
[2019-01-06] MEDS ORDERED: Sodium Chloride 0.9% 10 ML ONE (15:37)
[2019-01-06] MEDS ORDERED: Lidocaine 2% PF 5 ML VIAL ONE (15:37)
[2019-01-06] MEDS ORDERED: Heparin 10,000 UNITS/1 ML VIAL ONE (15:43)
[2019-01-06] MEDS ORDERED: Propofol 500 MG/50 ML VIAL ONE (15:47)
[2019-01-06] MEDS ORDERED: Heparin 5,000 UNITS/ML VIAL ONE (16:53)
--- NOTE | 2019-01-06 18:25 | OP ---
DATE OF PROCEDURE: 01/06/2019 PREOPERATIVE DIAGNOSES: End-stage renal disease, multiple aneurysms, left upper arm dialysis graft. POSTOPERATIVE DIAGNOSIS: End-stage renal disease, multiple aneurysms, left upper arm dialysis graft. PROCEDURES PERFORMED: Right IJ cuffed tunneled hemodialysis catheter, fluoroscopy, and ultrasound used. Revision of left upper arm graft, replacement of a new segment of graft between the old PTFE graft, arterial inflow, antecubital area, outflow axillary graft, leaving the old graft with aneurysmal dilatation in place and multiple stents in place. ANESTHESIA: Regional, left arm, TIVA, local with 0.5% Marcaine with epinephrine 30 mL mixed with 2% Xylocaine 10 mL. DESCRIPTION OF PROCEDURE: The patient was taken to the operating room, where under regional anesthesia and IV sedation, neck and chest and left upper extremity were prepared with ChloraPrep and draped in routine fashion. Local anesthetic was infiltrated into the skin and subcutaneous tissue about the operative site for placement of hemodialysis catheter. Using ultrasound guidance, right internal jugular vein was cannulated with a trocar catheter, J-wire threaded, trocar catheter removed, skin was enlarged sharply. Stab incision was made over the right chest using a tunneling device, pre-curved [employer] cuffed-tunneled hemodialysis catheter tunneled between the two incisions, placed the fabric cuff beneath the skin exit site over the chest and catheter secured with 2 sutures of 3-0 nylon. Sterile dressings applied. Small and medium size dilators were placed over the J-wire and internal jugular vein removed. Dilator and Peel-Away sheath placed with J-wire in superior vena cava, and dilator and J-wire were removed. Catheter placed with Peel-Away sheath. Peel-Away sheath removed. Fluoroscopic images revealed good line placement. Each port aspirated blood, flushed with saline solution and heparinized saline solution 1000 units heparin per mL indicating the port. Platysma approximated with 4-0 Monocryl, skin with subdermal 4-0 Monocryl, and derma glue applied. Attention was then turned to left upper arm. The patient has had a previous fistula converted to a graft. She has had stents placed in her graft by Interventional Nephrology and had multiple aneurysms of left graft. The inflow and outflow were evaluated previously and radiologically noted to be open. Incision was made over the left axilla and just below the antecubital fossa, dissecting free all the segments of the graft. They were normal, surrounded with silastic vessel loops. The patient was given 6000 units of heparin intravenously after a Maddie Wick tunneler was used to tunnel in new segment of #7 PTFE graft. Once the graft was in the proper tunnel and end-to-end anastomosis was created on both ends of the graft after dividing them and applying vascular clamps and removing the old stent from the arterial inflow with the antecubital fossa. The segment of graft used for the arterial inflow. We did not have any stent once it was all removed. End-to-end anastomosis created with continuous suture of 6-0 Prolene. Vascular clamps were released. Good flow in the graft noted. The patient given 50 mg of protamine by Anesthesia. Subcutaneous tissue was approximated with 3-0 Monocryl, skin with subdermal 4-0 Monocryl, and [place] glue applied. Job ID: [id number]
--- NOTE | 2019-01-06 18:27 | RAD ---
CHEST ONE VIEW: 01/06/19 HISTORY: Hemodialysis catheter placement. COMPARISON: 04/29/18. FINDINGS: Cardiac silhouette is magnified and enlarged. Pulmonary vasculature more engorged with patchy bilater al perihilar infiltrates. Blunting of the left lateral costophrenic angle. Mediastinum is midline. A new large caliber dual lumen right internal jugular dialysis type catheter is in place with tips over lying the superior vena cava. No evidence of pneumothorax. Extensive left subclavian and axillary marilin nts. IMPRESSION: Right internal jugular dialysis catheter is in good radiographic position. Cardiomegaly. Increasing pulmonary vascular congestion. POS: [facility]
== END 2019-01-06 19:25 | disposition home or self-care (01) ==
LOC: SDC 12:59
PROVIDERS: ATTEND Specialist
PROC: 05HM33Z Insertion of Infusion Device into Right Internal Jugular Vein, Percutaneous Approach (ICD-10-PCS; principal; 2019-01-06)
PROC: 03WY0JZ Revision of Synthetic Substitute in Upper Artery, Open Approach (ICD-10-PCS; 2019-01-06)
DX: T82.868A Thrombosis due to vascular prosthetic devices, implants and grafts, initial encounter (principal); I12.0 Hypertensive chronic kidney disease with stage 5 chronic kidney disease or end stage renal disease; N18.6 End stage renal disease; D63.1 Anemia in chronic kidney disease; M19.90 Unspecified osteoarthritis, unspecified site; F31.9 Bipolar disorder, unspecified; Z86.73 Personal history of transient ischemic attack (TIA), and cerebral infarction without residual deficits; Z79.01 Long term (current) use of anticoagulants; Z79.82 Long term (current) use of aspirin; Z79.899 Other long term (current) drug therapy; Z99.2 Dependence on renal dialysis
CPT/HCPCS: 71045; 76000; 80048; 85025; 86850; 86900; 86901; C1752; C1769; J0670; J1642; J1644; J2001; J2250; J2704; J2720; J3010; L8670

== ENCOUNTER 2019-02-16 15:00 | Inpatient (IN) | payer MEDICARE, MEDICAID ==
[2019-02-16] MEDS ORDERED: Lidocaine 1% w/Epinephrine 1:100K 20 ML VIAL ONE (15:17)
[2019-02-16 15:28] LABS: Hemoglobin 11.4 g/dL (12.0-16.0); Mean Corpuscular HGB CONC 31.2 g/dL (32.0-36.0); Mean Corpuscular Hemoglobin 28.9 pg (27.0-31.0); Mean Corpuscular Volume 92.7 fL (78.0-98.0); Mean Platelet Volume 9.8 fL (7.4-10.4); Platelet Count 222 thou/uL (130-400); RBC Distribution Width 17.8 % (11.5-14.5); Red Blood Cell (RBC) Count 3.95 mill/uL (4.20-5.40); White Blood Cell (WBC) Count 13.3 thou/uL (4.8-10.8)
[2019-02-16 15:33] LABS: PTT 42.4 SEC (22.9-36.1)
[2019-02-16 15:34] LABS: INR-International Normal Ratio 3.7; Prothrombin Time 36.5 SEC (12.0-14.7)
--- NOTE | 2019-02-16 15:45 | CT ---
CT Brain WO Con: 02/16/2019 3:18 PM CLINICAL HISTORY: Head trauma, anticoagulated patient. COMPARISON: None. FINDINGS: Hemorrhage: 3 mm thickness left subdural hematoma overlying the parietotemporal lobe. Ventricular system: Normal in size and morphology for the patient's age. Cerebral parenchyma: Normal Midline shift: 3 mm rightward subfalcine herniation. Mass: No intra-axial mass effect Calvarium: Normal. Visualized Paranasal sinuses: Clear. Evidence of right frontal scalp injury. IMPRESSION: Left subdural hematoma with mild rightward subfalcine herniation. ER physician telephoned of findings at 1536 hours. Code CR
--- NOTE | 2019-02-16 15:46 | CT ---
CT Cervical Spine WO Con Indication: Pain/Injury COMPARISON: None FINDINGS: Acute fracture/subluxation: None Spinal alignment: No acute malalignment. Vertebral body heights: Mild height loss of C5 and C6 with endplate irregularity, favoring chronic pr ocess. Superior endplate irregularities of the C7 and T1 vertebral bodies also present. Cervical spine degenerative change: Multilevel degenerative changes present. There is diffuse scleros is of the osseous structures, nonspecific. Incidental note of thyroid gland heterogeneity. IMPRESSION: Probable chronic, mild height loss of C5 and C6 vertebral bodies. There is also adjacent endplate irr egularity of superior C7 and T1. Diffuse sclerosis of osseous structures is nonspecific. Correlate clinically. If necessary, whole bod y bone scan May BE obtained if there is concern for neoplastic process. Transcribed Date/Time: 02/16/2019 5:08 PM
[2019-02-16 15:57] LABS: MDiff Complete? YES
[2019-02-16 15:58] LABS: Anisocytosis SLIGHT = 6-15 cells (100X) (0-5/hpf); Band 30 % (5-11); Lymphocytes 1 % (21-51); Metamyelocyte 10 % (0-0); Monocytes 2 % (0-10); Neutrophil 56 % (42-75); Ovalocytes SLIGHT = 2-5 cells (100X) (0-1/hpf); Platelet Morphology Comment Appears Adequate; Polychromasia SLIGHT = 2-3 cells (100X) (0-2/hpf)
--- NOTE | 2019-02-16 15:59 | CT ---
CT chest noncontrast CT thoracic spine noncontrast HISTORY: Fall. Chest injury. Back injury. FINDINGS: Scattered throughout each lung are numerous oval and rounded soft tissue density masses of varying size. The largest abuts the posterolateral pleura at the right upper lobe and measures up to 1.7 cm. No pneumothorax or pleural fluid. Bones are diffusely hyperdense. Likely related to renal osteodystrophy. Degenerative changes throughout the thoracic spine on the sagittal images. No acute fracture or dislocation. Vertebral body heights are maintained. Lack of contrast limits evaluation of the soft tissues. There is prominent stranding within the subcu taneous fat at the right upper anterior chest. It overlies a focal oval masslike area that measures up to 3.3 cm oblique diameter on the sagittal images. Large hiatal hernia. Left axillary and subclavi an vessel metallic stents. IMPRESSION: No acute internal traumatic injury is demonstrated. Probable widespread metastatic disease of the lungs. Abnormality of the right anterior chest may represent a breast mass with adjacent inflammatory proces s. In the setting of recent trauma, this also could be related to direct injury Large hiatal hernia. Chronic findings of chronic renal disease. Such as hematoma. Please correlate clinically.
[2019-02-16 16:34] LABS: CKMB 11.6 ng/mL (0-6.6)
[2019-02-16 16:47] LABS: ALT (SGPT) 39 U/L (8-55); AST (SGOT) 80 U/L (5-34); Albumin 2.9 g/dL (3.4-4.8); Alkaline Phosphatase 84 U/L (40-150); Anion Gap 24 mmol/L (10-20); BUN (Urea Nitrogen) 64 mg/dL (9.8-20.1); Bilirubin, Total 0.9 mg/dL (0.2-1.2); Calc. Creatinine Clearance 0 mL/min (70-130); Calcium 9.6 mg/dL (7.8-10.44); Carbon Dioxide 19 mmol/L (23-31); Chloride 94 mmol/L (98-107); Estimated GFR-MDRD 4; Globulin 2.4 g/dL (2.4-3.5); Glucose 179 mg/dL (83-110); Potassium 5.7 mmol/L (3.5-5.1); Protein, Total 5.3 g/dL (6.0-8.3); Sodium 131 mmol/L (136-145)
[2019-02-16] MEDS ORDERED: Lorazepam 2 MG/ML VIAL ONE (17:08)
[2019-02-16] MEDS ORDERED: CEFAZOLIN 1 GM VIAL ONE (17:08)
[2019-02-16] MEDS ORDERED: Adacel (T-DAP) 0.5 ML SYRINGE ONE (17:08)
[2019-02-16 18:30] LABS: Acetaminophen Less than 6.0 mcg/mL (10.0-30.0); Alcohol Less than 10 mg/dL (Less than 10); Salicylate Less than 8.0 mg/dL (15.0-30.0)
[2019-02-16] MEDS ORDERED: Acetaminophen 1,000 MG in Premix Bag 1 BAG IVPB SCH (18:45)
[2019-02-16 18:53] LABS: Bilirubin Negative (Negative); Blood, Urine Moderate (Negative); Clarity CLOUDY (Clear); Glucose, Urine (Dipstick) 100 mg/dL (Negative); Leukocyte Negative (Negative); Nitrite Negative (Negative); Protein, Urine (Dipstick) 300 mg/dL (Neg-Trace); Specific Gravity, Urine 1.012 (1.002-1.036); Urobilinogen 0.2 mg/dL (0.2-1.0)
[2019-02-16 18:55] LABS: Bacteria/HPF None Seen HPF (None Seen); Hyaline Casts/LPF 4-6 HYALINE CAST LPF (0-3 Hyaline); Pathc Cast-AUWi Flag 0.81 (0-2.49); RBC/HPF 21-50 HPF (0-3); Squamous Epithelial 0-3 HPF (0-3)
[2019-02-16 19:02] LABS: Amphetamine Not Detected (NotDetected); Barbiturates Screen Not Detected (NotDetected); Benzodiazepine Screen Not Detected (NotDetected); Cocaine Metabolite Screen Not Detected (NotDetected); Medtox Control Line Valid? VALID (VALID); Medtox Reader # READER 1; Methadone Not Detected (NotDetected); Methamphetamine Not Detected (NotDetected); Opiate Screen Not Detected (NotDetected); Oxycodone Screen Not Detected (NotDetected); Phencyclidine (PCP) Not Detected (NotDetected); THC/Cannabinoid Screen Not Detected (NotDetected); Tricyclic Screen Not Detected (NotDetected)
[2019-02-16 19:08] LABS: Magnesium 1.6 mg/dL (1.6-2.6); Phosphorus 6.2 mg/dL (2.3-4.7)
[2019-02-16 19:08] LABS: Transitional Epithelial 0-3 HPF (0-3)
[2019-02-16 19:19] LABS: Troponin I 1.736 ng/mL (< 0.028)
[2019-02-16] MEDS ORDERED: Dextrose 5% in Water 1,000 ML IV PRN (19:24)
[2019-02-16] MEDS ORDERED: Morphine 4 MG/ML VIAL SLOW IVP PRN (19:24)
[2019-02-16] MEDS ORDERED: Morphine 2 MG/ML SYRINGE SLOW IVP PRN (19:24)
[2019-02-16] MEDS ORDERED: Dextrose 50% Abboject 50 ML SYRINGE SLOW IVP PRN (19:24)
[2019-02-16] MEDS ORDERED: hydrALAZINE 20 MG/ML VIAL SLOW IVP PRN (19:24)
[2019-02-16] MEDS ORDERED: Ondansetron PF 4 MG/2 ML Vial IVP PRN (19:24)
[2019-02-16] MEDS ORDERED: Phytonadione 5 MG in Sodium Chloride 0.9% 50 ML IVPB SCH (19:45)
--- NOTE | 2019-02-16 19:47 | RAD ---
CHEST ONE VIEW: History: Dyspnea. Comparison: 02-16-19 FINDINGS: Cardiac silhouette is magnified and enlarged. Pulmonary vasculature is upper limits of normal. Medias tinum is midline with aortic calcification. Subtle ill-defined areas of nodular parenchymal opacity w ithin each lung correlate with the soft tissue density nodules on recent CT. Vascular stents overlie the veins of the left upper arm and chest. No evidence of pneumothorax. IMPRESSION: 1. Lung nodules better demonstrated on corresponding CT chest. 2. Atherosclerosis. POS: [facility]
--- NOTE | 2019-02-16 19:50 | RAD ---
LEFT FOOT THREE VIEWS: History: Fall. Left foot injury. FINDINGS: Lisfranc joint alignment is anatomic. Pes planus on the lateral view. Mild osteophytosis throughout t he foot. No acute fracture, dislocation, or aggressive osseous erosions. Calcification over the arter ial structures. IMPRESSION: 1. Chronic type findings. No acute osseous abnormalities are demonstrated. 2. Atherosclerosis. POS: [facility]
--- NOTE | 2019-02-16 19:51 | RAD ---
LEFT KNEE FOUR VIEWS: History: Left knee injury. FINDINGS: Joint spaces are preserved. No acute fracture, dislocation, or fluid distention of the suprapatellar bursa. Mild articular surface irregularity involving the posterior aspect of the patella. IMPRESSION: No acute osseous abnormalities are demonstrated. POS: [facility]
[2019-02-16] MEDS ORDERED: Cefepime 1 GM in Sodium Chloride 0.9% 100 ML IVPB SCH (20:15)
[2019-02-16] MEDS ORDERED: Gentamicin Sulfate 100 MG in Premix Bag 1 BAG IVPB SCH (21:00)
[2019-02-16] MEDS ORDERED: Famotidine 20 MG TAB PO SCH (21:00)
--- NOTE | 2019-02-16 22:18 | HP ---
TRAUMA SURGEONS: 1. Dr. Garcia. 2. Dr. Medina. CONSULTING PHYSICIAN: Dr. Blake with Nephrology and Dr. Martinez with Neurosurgery. HISTORY OF PRESENT ILLNESS: The patient is a 73-year-old female who presented to the emergency department after a fall at home. The patient is on Eliquis. She was found down after about an hour. On evaluation by the emergency department, it was found that she had a left subdural hematoma with mild rightward subfalcine herniation and a forehead laceration. She does have a history of ESRD and is on dialysis Saturday, Saturday, and Saturday. She did miss her dialysis today. She also has a history of a CVA with no deficits, hypertension, hyperlipidemia, depression, glaucoma, and bipolar disease. Upon my evaluation, the patient was tachypneic and tachycardic into the 120s. Rectal temperature was completed and her temperature was 102.6. Further evaluation was completed for concern for sepsis. The patient had a right tunneled dialysis catheter in her right anterior chest that has been removed recently with a lesion in that area that is concerning and needs further evaluation. Upon my evaluation, the patient was GCS of 15, but just mildly slow to respond. She did not know the year; however, nursing reported that was not a change from the time that she arrived. PAST MEDICAL HISTORY: ESRD on dialysis Saturday, Saturday, Saturday; CVA with no deficits; hypertension; hyperlipidemia; depression; glaucoma; and bipolar disorder. PAST SURGICAL HISTORY: Multiple C-sections, left breast biopsy, left breast lumpectomy, hernia repair, tubal ligation, left upper extremity fistula, left upper extremity graft revision as early as February 06, 2019. SOCIAL HISTORY: The patient denies alcohol, tobacco and drug use. She lives at home and is independent. She lives alone. She drives herself to and from dialysis. MEDICATIONS: 1. Eliquis. 2. Renvela. 3. Amlodipine. 4. Atorvastatin. ALLERGIES: NO KNOWN DRUG ALLERGIES. PHYSICAL EXAMINATION: VITAL SIGNS: Temperature 102.6, heart rate 122, blood pressure 136/72, respirations 20, oxygen saturation 97% on 2 L nasal cannula. PRIMARY SURVEY: Airway intact. Adequate breath sounds bilaterally. 2+ distal pulses in the bilateral radials, femorals, and DPs. GCS is 15. Gross motor and sensation are intact in all extremities. Laceration to the anterior forehead with bruising over the right anterior chest wall lesion. No signs of external bleeding at the time of my evaluation. SECONDARY SURVEY: HEAD: Normocephalic with an avulsion laceration to the anterior forehead, no gross palpable skull deformities or tenderness. Pupils 3 to 2 equal, round, reactive bilaterally. ENT: No hemotympanum. No epistaxis. No septal hematoma. Midface stable to manipulation. No blood in the oropharynx. Dentition is intact. No anterior neck injury/crepitus/tenderness. C-spine: No step-offs or deformities or tenderness. C-collar not in place. CHEST: Right anterior chest wall tenderness with a large lesion which looks bruised. This is the side of the previous tunneled dialysis catheter concerning maybe for a source of sepsis. Equal chest movements. No crepitus. ABDOMEN: Soft, nontender, nondistended. PELVIS: Stable to palpation. Nontender. No abrasions or ecchymosis noted. RECTAL: Deferred. GENITOURINARY: Deferred. EXTREMITIES: Bruise and abrasion to her left knee and a small superficial avulsed laceration to the anterior surface of the left second toe. Reports generalized lower extremity pain. 2+ pulses in the bilateral radials, femorals , and DPs present bilaterally. BACK/SPINE: No step-offs or deformities or tenderness to palpation of the thoracic or lumbar spine. No abrasions or ecchymosis noted. NEUROLOGIC: 4/5 strength in bilateral lining brusher, plantar flexion, dorsiflexion. Gross normal sensation x4 extremities. GCS is 15. Alert and oriented x3. She could not answer correctly the year. LABORATORY FINDINGS: White count 13.3, hemoglobin 11.4, hematocrit 36.6, platelets 222. INR 3.7. Sodium 131, potassium 2.5, chloride 94, carbon dioxide 19, BUN 64, creatinine 9.78, glucose 179, lactic acid 4.6, phosphorus 6.2, magnesium 1.6, total bilirubin 0.6, AST 80, ALT 39. CK 2480. Troponin 1.736. BNP 3215. UA positive for protein, glucose, blood, red blood cells, white blood cells, no bacteria, no nitrites, no leukocyte esterase. Toxicology screen negative for drugs and alcohol. DIAGNOSTIC FINDINGS: CT of the brain completed today demonstrates left subdural hematoma with mild rightward subfalcine herniation. CT of the C-spine demonstrates probable chronic mild height loss of C5 and C6 vertebral bodies. There is also adjacent endplate irregularity of superior C7 and T1, diffuse sclerosis of the osseous structure is nonspecific. Correlate clinically. If necessary, whole- body bone scan may be obtained if there is concern for neoplastic process. CT of the chest was completed without contrast. This CT demonstrates no acute internal traumatic injuries, demonstrated probable widespread metastatic disease of the lungs, abnormality of the right anterior chest may represent a breast mass with adjacent inflammatory process in the setting of recurrent trauma. This also could be related to the direct injury. Large hiatal hernia, chronic finding of chronic renal disease such as hematoma. Please correlate clinically. X-ray of the left foot demonstrates no acute osseous abnormalities or determine atherosclerosis. X-ray of the left knee demonstrates no acute osseous abnormalities are demonstrated. X-ray of the chest demonstrates lung nodules better demonstrated and correlated. CT chest, atherosclerosis. ASSESSMENT: 1. Status post fall from standing. 2. Left-sided subdural hematoma with midline rightward subfalcine herniation. 3. Forehead avulsion laceration. 4. Right anterior chest wall lesion. 5. Hyperkalemia. 6. Hyponatremia. 7. Troponinemia. 8. Widespread lung metastatic disease. 9. Sepsis, unknown etiology. 10. History of end-stage renal disease on dialysis Saturday, Saturday, and Saturday , cerebrovascular accident with no deficits, hypertension, hyperlipidemia, depression, glaucoma, bipolar disorder. PLAN: The patient will be admitted to the CCU. She was given a total of 1 L of normal saline in the emergency department. She was also given 1 g of Ofirmev. Blood and urine cultures were drawn. Chest x-ray was completed. She was started on cefepime and gentamicin. Dr. Blake with Nephrology was consulted, who originally agreed to complete dialysis this evening. However, after further consideration, dialysis would remove the antibiotics given. Dr. Blake was comfortable even with her hyperkalemia to dialyze her further in the morning. Pharmacy is aware as well as nursing who will give the patient an additional dose of antibiotics after dialysis tomorrow morning. Surgery to re-evaluate right anterior chest wall for concern for possible infection source. Dr. Garcia did evaluate it and he was concerned that this may be an infection where the previous tunneled dialysis catheter was located. The patient is also hypocoagulable with an INR of 3.7. She will receive 2 units of FFP as well as 5 of vitamin K IV. She will receive q.1 hour neuro checks as well as a repeat head CT at 6 a.m. unless her GCS declines by 2 or more at which time she will receive a CT of the brain without contrast at that time. Did speak with nursing about concern for change in mentation with sepsis along with head bleed as this may confuse the picture. We have a low threshold to repeat the CT head. We will keep the head of the bed elevated at 30 degrees and keep her systolic blood pressures less than 160. The patient was seen and evaluated by Dr. Garcia. I also did speak to Dr. Medina and reviewed the patient with him as well. Job ID: [id number] MTDD
[2019-02-16 22:29] LABS: Lactic Acid 3.6 mmol/L (0.5-2.2)
--- NOTE | 2019-02-16 22:45 | CON ---
DATE OF CONSULTATION: Ms. Little is a 73-year-old woman who presents to the emergency department at [facility] status post fall at home where she was found down by family. Neurosurgery was consulted for CT scan of the head that reveals a small left-sided occipitoparietal subdural hematoma with minimal if any mass effect on the underlying parenchyma. There is no midline shift of note. She is on Eliquis for cardiac condition. She is a known dialysis patient of Dr. Blake, receiving dialysis 3 times a week. Her last dialysis treatment was last Saturday. She was due today but has not had it yet. She has a urine urinalysis positive for what looks to be urinary tract infection and was found to be septic. She is tachycardic with increased white blood cell count. The patient is being admitted to trauma service, but neurosurgery is consulted for this subdural. Upon examination, the patient is awake and alert, but confused. She does follow commands only intermittently. She does not answer questions appropriately and typically answers only in one-word sentences, I am not sure if this is related to sepsis or head trauma, but likely is a combination of both. The risk for spine films are negative. Neurosurgery is perspective, this represents likely non interventional hematoma given the quite small size. We will repeat a scan in the morning to be sure that there is no additional concern. We will continue to follow along. Job ID: [id number]
[2019-02-16 23:44] LABS: HBSAg Index 0.33 S/CO (0-0.99); Hep B Surf Ag Non-Reactive S/CO (NonReactive)
[2019-02-17] MEDS: Acetaminophen 1,000 MG in Premix Bag 1 BAG IVPB SCH ×4 (01:01→18:35)
[2019-02-17] MEDS ORDERED: RENALLY ADJUST CEFEPIME IVPB PRN (04:53)
[2019-02-17 06:30] LABS: INR-International Normal Ratio 3.3; Prothrombin Time 33.6 SEC (12.0-14.7)
[2019-02-17 07:28] LABS: Anion Gap 23 mmol/L (10-20); BUN (Urea Nitrogen) 73 mg/dL (9.8-20.1); CK (CPK) 1323 U/L (29-168); Calc. Creatinine Clearance 5 mL/min (70-130); Calcium 9.3 mg/dL (7.8-10.44); Carbon Dioxide 20 mmol/L (23-31); Chloride 98 mmol/L (98-107); Estimated GFR-MDRD 4; Glucose 98 mg/dL (83-110); Magnesium 1.6 mg/dL (1.6-2.6); Phosphorus 8.3 mg/dL (2.3-4.7); Potassium 5.7 mmol/L (3.5-5.1); Sodium 135 mmol/L (136-145)
[2019-02-17] MEDS ORDERED: Vancomycin Sliding Scale 1 EACH FS ONE (08:15)
[2019-02-17] MEDS ORDERED: Vancomycin HCl 1 GM in Premix Bag 1 BAG IVPB SCH (08:15)
[2019-02-17] MEDS ORDERED: HOLD VANCOMYCIN FOR LEVEL >20 FS SCH (08:15)
[2019-02-17] MEDS ORDERED: Vancomycin HCl 750 MG in Sodium Chloride 0.9% 250 ML 250 ML IVPB SCH (08:15)
[2019-02-17] MEDS ORDERED: Vancomycin HCl 250 MG in Sodium Chloride 0.9% 100 ML IVPB SCH (08:15)
[2019-02-17] MEDS ORDERED: Vancomycin HCl 500 MG in Sodium Chloride 0.9% 100 ML IVPB SCH (08:15)
--- NOTE | 2019-02-17 08:24 | CT ---
CT HEAD NONCONTRAST: Date: 02/17/19 COMPARISON: Previous day. INDICATION: Subdural hematoma, follow-up. FINDINGS: Interval increase in volume of acute left subdural hematoma is demonstrated. The maximum diameter brianna sures 1.5 cm, located overlying the posterior left parietal lobe. This results in localized sulcal ef facement/mass effect. Previous midline shift, to the right of midline, has not significantly changed, measuring 3 mm. Lacunar infarction of anterior right lafleur radiata is chronic appearing. IMPRESSION: Interval increase in volume of acute extra-axial hematoma overlying the left convexity, now 1.5 cm in thickness. Grossly stable rightward midline shift, approximately 3 mm, at level of septum pellucidum . Continued follow-up is warranted. POS: SHERMAN
[2019-02-17] MEDS ORDERED: Magnesium 2 GM/50 ML 2 GM in Premix Bag 1 BAG IVPB SCH (08:30)
--- NOTE | 2019-02-17 13:08 | CT ---
CT head noncontrast HISTORY: Intracranial hemorrhage. Follow-up. COMPARISON: Earlier exam on same date. FINDINGS: Left posterior subdural hyperdense hematoma is again demonstrated. Unchanged in size and ap pearance from the earlier exam on the same day. Effacement of the underlying cerebral sulci is stable. No new areas of hemorrhage. Other chronic-type findings are stable. IMPRESSION: Stable CT appearance of the left posterior subdural hematoma. No new abnormalities are de monstrated.
--- NOTE | 2019-02-17 13:14 | RAD ---
XR Lumbar Spine 2 Or 3 View HISTORY: Fall with back pain. COMPARISON: 02/16/2019 CT examination. FINDINGS: The vertebral bodies are dense consistent with renal osteodystrophy. There is cupping to mu ltiple endplates, in reviewing the previous CT study these changes appear to be chronic in nature. No acute wedge-shaped compression fracture. Pedicles are intact. IMPRESSION: No acute injury.
--- NOTE | 2019-02-17 13:24 | PRG ---
DATE OF SERVICE: 02/17/2019 SUBJECTIVE: Ms. Little this morning has actually improved neurologically. She is able to tell me where she is the month, the year, and loosely what she thinks is happening. I explained to her more in detail that she suffered a fall with head injury and intracranial bleed. She also is septic. She is currently undergoing dialysis in the room at the moment. Her CT this morning shows significant evolution of the left occipital and parietal subdural hematoma, where it is much more obvious and slightly compressive to the underlying parenchyma whereas the first CT yesterday, there is barely noticeable blood. PLAN: Plan for today, we will hold her n.p.o. until repeat scan at 1 p.m., and likely keep her in the unit or at least recommend she stay in the unit until that time. If CT is stable at that point, we can advance diet and transfer her to whichever floor is reasonable per primary team. We will continue to follow on. Job ID: [id number]
[2019-02-17 13:33] LABS: Mean Corpuscular Hemoglobin 29.1 pg (27.0-31.0); Mean Corpuscular Volume 93.9 fL (78.0-98.0); Mean Platelet Volume 11.5 fL (7.4-10.4); Platelet Count 154 thou/uL (130-400); RBC Distribution Width 17.4 % (11.5-14.5); Red Blood Cell (RBC) Count 2.75 mill/uL (4.20-5.40); White Blood Cell (WBC) Count 3.8 thou/uL (4.8-10.8)
[2019-02-17 13:34] LABS: Band 40 % (5-11); Lymphocytes 9 % (21-51); MDiff Complete? YES; Neutrophil 37 % (42-75)
[2019-02-17 13:35] LABS: Metamyelocyte 2 % (0-0); Monocytes 12 % (0-10); Ovalocytes SLIGHT = 2-5 cells (100X) (0-1/hpf); Platelet Morphology Comment Appears Adequate; Polychromasia SLIGHT = 2-3 cells (100X) (0-2/hpf)
--- NOTE | 2019-02-17 15:31 | CON ---
DATE OF CONSULTATION: HISTORY OF PRESENT ILLNESS: Ms. Little is a 73-year-old white female with ESRD and admitted due to a fall. CT scan of the brain showed subdural hematoma. We are now being consulted for her maintenance hemodialysis. During the initial evaluation, she was also noted to have been febrile and was empirically treated with IV antibiotics. We are following her up for her maintenance hemodialysis. She did miss her dialysis yesterday and she was mildly hyperkalemic. She is currently undergoing hemodialysis today without any heparin. REVIEW OF SYSTEMS: Positive for headache. Positive for intermittent confusion. Positive for nausea. No syncopal episode. Positive for fever. No productive cough. No gross hematuria. No dysuria. No urinary frequency. No diarrhea. No constipation. No abdominal pain. Energy level is fair. No tremors. No asterixis. MEDICATIONS: Currently on, 1. Status post gentamicin. 2. Hydralazine 10 mg IV q.4. 3. Magnesium sulfate 2 g x1 dose. 4. Morphine sulfate 2 mg IV q.2 hours p.r.n. 5. Status post vancomycin. PAST MEDICAL HISTORY: 1. 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 2. Longstanding hypertension, breast cancer in remission, bipolar disorder, and osteoporosis. PAST SURGICAL HISTORY: Status post cuffed hemodialysis catheter placement, status post AV fistula placement, status post colonoscopy, status post section, and status post bilateral tubal ligation. ALLERGIES: NONE. TRAUMA: None. IMMUNIZATION: Up-to-date. HOSPITALIZATIONS: Please see past medical history. FAMILY HISTORY: No family history of ESRD. SOCIAL HISTORY: The patient lives in [place]. She lives alone. She is , two children, status post multiple blood transfusion. No smoking. No alcohol intake. No IV drug abuse. Sedentary lifestyle. PHYSICAL EXAMINATION: VITAL SIGNS: Blood pressure is currently at 104/56, heart rate 105, respiratory rate 23, and pulse ox 100%. GENERAL: The patient is awake. The patient is awake and follows my commands and can converse. HEENT: She has pinkish conjunctivae. Anicteric sclerae. NECK: No neck mass. No carotid bruits. No JVD. CHEST: No deformities. LUNGS: Clear breath sounds. HEART: Normal sinus rhythm. No murmurs, gallops, or rubs. ABDOMEN: Globular, soft, and nontender. No masses. EXTREMITIES: No edema. No deformities. DIAGNOSTIC DATA: CT scan of the brain, February 16, 2019, showed the left subdural hematoma with a mild rightward subfalcine herniation. February 16, 2019, CT of the chest shows a large hiatal hernia, and in addition, there is a finding of scattered numerous oval and round soft tissue density, masses of varying sizes - probable metastatic disease of the lungs. February 16, 2019, chest x-ray, lung nodules noted. ASSESSMENT AND PLAN: 1. Status post fall with subdural hematoma - supportive care. Neurosurgery has been consulted. 2. End-stage renal disease, stable. Continue current hemodialysis regimen. Due to the subdural hematoma, we are currently using no heparin. Fluid removal only as tolerated. 3. Metastatic lung lesion - the patient did have history of breast cancer and this might be a manifestation of metastatic lesion to breast cancer. She will need Hematology/Oncology consultation. 4. Fever - currently on IV antibiotics. Overall prognosis remains guarded. Job ID: [id number]
--- NOTE | 2019-02-17 16:25 | PRG ---
DATE OF SERVICE: 02/17/2019 SUBJECTIVE: This is a 73-year-old woman with significant comorbidities including dialysis dependent chronic kidney disease. The patient was admitted yesterday following an apparent fall while on Eliquis. Workup at the time was significant for left-sided subdural hematoma with midline [id number] shift. The patient was also incidentally found with fever, temperature 102 degrees Fahrenheit. Kriss Coma Scale this morning is noted at E4, V4, M6. She has been on hemodialysis now for 2 hours prior to my arrival. Her blood pressure remained stable while on dialysis. The patient was started on IV antibiotics yesterday after workup was accomplished to evaluate presumptive sepsis. OBJECTIVE: VITAL SIGNS: Blood pressure is 102/53, pulse 105, respiratory rate is 30. Temperature 98.4 degrees Fahrenheit, although it was 102 degrees in the emergency department. Oxygen saturation currently is 100% on FiO2, 2 L by nasal cannula oxygen. HEENT: Pupils are equal, round, reactive to light and accommodation. NECK: No jugular venous distention noted. HEART: Reveals sinus tachycardia with no murmurs or gallops auscultated. LUNGS: Clear to auscultation bilaterally. Breathing, regular and nonlabored. ABDOMEN: Soft, nontender, and nondistended. Bowel sounds in all 4 quadrants appear normoactive. EXTREMITIES: Reveal 2+ radial and pedal pulses bilaterally. No ankle edema is present. NEUROLOGIC: Reveals no focal deficits present. IMAGING STUDIES: Repeat noncontrast CT scan of the brain is remarkable for stable left posterior subdural hematoma. LABORATORY DATA: Pertinent laboratory findings today include CBC with 3800 white blood cells, hemoglobin and hematocrit are 8.0 and 25.8 respectively. Platelet count is 154,000. Differential count as follows; 37% neutrophils, 40 bands, 9 lymphocytes, 12 monocytes. Metabolic profile; sodium 135, potassium 5.7, chloride is 98, BUN is 73, creatinine is 10.14, glucose is 98. Lactic acid is 2.0, down from 3.6 on admission. Magnesium is 1.6 and phosphorus is 8.3. IMPRESSION: 1. Post injury day #1, status post fall. 2. Acute traumatic left posterior subdural hematoma, neurologically stable. 3. Hemodialysis dependent chronic renal failure. 4. Acute hypomagnesemia. 5. Acute febrile illness, likely acute septicemia, etiology is indeterminate at this time. PLAN: 1. Continue with broad-spectrum antibiotic therapy until final culture results have been obtained. 2. We will provide gentle fluid resuscitation using neurological status and blood pressure as endpoint of our resuscitation. 3. Correct abnormal electrolytes. 4. Above findings and plan discussed with the patient, who indicates understanding. Job ID: [id number]
[2019-02-17] MEDS ORDERED: Cefepime 0.5 GM in Sodium Chloride 0.9% 100 ML IVPB SCH (20:00)
[2019-02-18] MEDS: Acetaminophen 1,000 MG in Premix Bag 1 BAG IVPB SCH ×2 (00:10→18:07)
[2019-02-18] MEDS: Famotidine/PF 20 mg/2ml Vial SLOW IVP SCH ×2 (00:10→20:21)
[2019-02-18 05:17] LABS: Band 39 % (5-11); Hemoglobin 7.6 g/dL (12.0-16.0); Hypochromia SLIGHT = 6-15 cells (100X) (0-5/hpf); Lymphocytes 10 % (21-51); MDiff Complete? YES; Mean Corpuscular HGB CONC 29.5 g/dL (32.0-36.0); Mean Corpuscular Hemoglobin 27.9 pg (27.0-31.0); Mean Corpuscular Volume 94.5 fL (78.0-98.0); Mean Platelet Volume 10.7 fL (7.4-10.4); Metamyelocyte 3 % (0-0); Monocytes 11 % (0-10); Neutrophil 37 % (42-75); Platelet Count 178 thou/uL (130-400); Platelet Morphology Comment Appears Adequate; RBC Distribution Width 17.5 % (11.5-14.5); Red Blood Cell (RBC) Count 2.71 mill/uL (4.20-5.40); White Blood Cell (WBC) Count 5.6 thou/uL (4.8-10.8)
[2019-02-18 05:17] LABS: Anion Gap 20 mmol/L (10-20); BUN (Urea Nitrogen) 44 mg/dL (9.8-20.1); Calc. Creatinine Clearance 9 mL/min (70-130); Calcium 9.7 mg/dL (7.8-10.44); Carbon Dioxide 25 mmol/L (23-31); Chloride 100 mmol/L (98-107); Estimated GFR-MDRD 8; Glucose 88 mg/dL (83-110); Magnesium 1.9 mg/dL (1.6-2.6); Phosphorus 6.3 mg/dL (2.3-4.7); Potassium 5.1 mmol/L (3.5-5.1); Sodium 140 mmol/L (136-145)
--- NOTE | 2019-02-18 06:57 | CT ---
CT Brain WO Con HISTORY: History of subdural hematoma. Change in mental status. COMPARISON: 02/17/2019 study. FINDINGS: The ventricular and cisternal system shows mild atrophy. The acute appearing extra-axial co llection over the left parietal occipital region is essentially stable in appearance. No new hemorrhage. No mass effect demonstrated. The mastoid air cells are clear. Minimal maxillary sinus mucosal disease noted. IMPRESSION: Stable exam.
--- NOTE | 2019-02-18 07:46 | PRG ---
DATE OF SERVICE: 02/18/2019 This is a 73-year-old female admitted through the ER, status post a fall. She is on Eliquis and she also has several medical comorbidities including kidney failure (dialysis), hypertension, and hyperlipidemia. She presented with a left parieto-occipital subdural hematoma. She has had 4 head CTs performed. The most recent of which was this morning, which shows no overall change in size of this subdural hematoma. She has no significant mass effect present. She has been stable neurologically. I reviewed the progress notes by Hadley Rodriguez and agree with his plan of care, which will be one of nonoperative management. Our plan will be to follow up with her in the outpatient setting. Job ID: [id number] MTDD
[2019-02-18 09:27] LABS: INR-International Normal Ratio 1.5; PTT 36.2 SEC (22.9-36.1); Prothrombin Time 18.4 SEC (12.0-14.7)
--- NOTE | 2019-02-18 13:14 | PRG ---
DATE OF SERVICE: 02/18/2019 SUBJECTIVE: Ms. Little is a 73-year-old woman with multiple comorbidities including end-stage renal disease, dialysis dependent. She sustained a left posterior subdural hematoma following apparent fall, for which she was admitted 2 days previously. She has remained hemodynamically and neurologically stable. Repeat brain CT scan today shows stable and left posterior subdural hematoma without any mass effects. She is awake and alert. She moves all extremities and follows commands, although she is confused at baseline. She is 2 hours into her hemodialysis this morning and hemodynamically tolerated this. OBJECTIVE: VITAL SIGNS: Include blood pressure 116/59, pulse 105, respiratory rate is 26, temperature is 97.4 degrees Fahrenheit, and oxygen saturation is 98% on 2 L by nasal cannula oxygen. HEART: Reveals regular rate with sinus tachycardia. No murmurs or gallops auscultated. LUNGS: Clear to auscultation bilaterally. Breathing, regular and nonlabored. ABDOMEN: Soft, nontender, nondistended. Bowel sounds in all 4 quadrants appear normoactive. LABORATORY FINDINGS: Today include CBC with 5600 white blood cells, hemoglobin and hematocrit are stable at 7.6 and 25.6 respectively. Platelet count 178,000. Metabolic profile; sodium 140, potassium 5.1, chloride is 100, bicarb is 25, BUN is 44, creatinine is 5.16, glucose 88, magnesium 1.9, and phosphorus 6.3. IMPRESSION: 1. Post injury day #2, status post fall. 2. Acute traumatic left posterior subdural hematoma, stable. 3. Acute septicemia, resolving, although no focus of infection has yet to be identified. 4. Stable chronic kidney disease. PLAN: 1. Continue with physical and occupational therapy. 2. Increasing activity as tolerated. 3. We will ask Speech and Language pathologist to evaluate the patient for speech, swallow, and cognitive function. 4. The patient is hemodynamically stable for transfer to step-down unit. 5. Anticipate transfer to longterm facility in the next few days. Job ID: [id number]
[2019-02-18] MEDS ORDERED: Epoetin (ESRD) 20,000 UNITS/ML SC SCH (16:00)
--- NOTE | 2019-02-18 16:50 | PRG ---
DATE OF SERVICE: SUBJECTIVE: Ms. Little is a 73-year-old white female with ESRD and admitted for a fall with resultant subdural hematoma. During the workup, she was found to have multiple nodules in the lungs. Suspicion for metastatic lung lesion is being considered. In addition, neurosurgery has evaluated the patient. Recommendation is medical management for the subdural hematoma. We are following this patient for maintenance hemodialysis. The patient was seen this morning and she was dialyzing and tolerating the said treatment. We did a 3-hour hemodialysis with fluid removal as tolerated. Due to the relatively lower BP, fluid removal was somewhat limited. The patient continues to be confused. OBJECTIVE: VITAL SIGNS: Blood pressure 135/61, heart rate is 111, respiratory rate 21, and pulse ox 97%, temperature 99.2. GENERAL: The patient is awake, intermittently confused, but not in overt distress. SKIN: Adequate turgor. HEENT: She has pale conjunctivae. Anicteric sclerae. NECK: No neck mass. No carotid bruits. No JVD. CHEST: No deformities. LUNGS: Clear breath sounds. HEART: Normal sinus rhythm. No murmur. No gallops or rubs. ABDOMEN: Globular, soft, nontender. No masses. EXTREMITIES: No edema, no deformities. MEDICATIONS: Medications of February 18, 2019, was reviewed. LABORATORY DATA: Laboratories of February 18, 2019, white count 5.6, hemoglobin 7.6 sodium 140, potassium 5.1, chloride 100, carbon dioxide 25, BUN 44, creatinine 5.16, phosphorus 6.3, magnesium 1.9. Blood culture from February 16, 2019, no growth to date. Urine culture no growth to date. ASSESSMENT AND PLAN: 1. End-stage renal disease, stable. We will continue current Saturday, Saturday, and Saturday hemodialysis. Due to recent subdural hematoma, no heparin is being used. Fluid removal as tolerated. 2. [place] [address] units subcutaneously every week. 3. Subdural hematoma. Conservative management. No surgical indication. 4. Pulmonary nodules-multiple in nature. Suspicion for metastatic lung disease is being considered. Consider Pulmonary consult. 5. Overall agree with current management. Job ID: [id number]
[2019-02-18] MEDS ORDERED: EPOETIN ALFA-EPBX (ESRD) 4,000 UNIT/ML VIAL SC SCH (17:00)
[2019-02-19] MEDS: Acetaminophen 1,000 MG in Premix Bag 1 BAG IVPB SCH ×4 (00:19→17:31)
[2019-02-19 03:42] LABS: INR-International Normal Ratio 1.3; PTT 35.4 SEC (22.9-36.1); Prothrombin Time 16.3 SEC (12.0-14.7)
[2019-02-19 03:56] LABS: Anion Gap 23 mmol/L (10-20); BUN (Urea Nitrogen) 38 mg/dL (9.8-20.1); Band 17 % (5-11); Calc. Creatinine Clearance 12 mL/min (70-130); Calcium 9.9 mg/dL (7.8-10.44); Carbon Dioxide 23 mmol/L (23-31); Chloride 100 mmol/L (98-107); Estimated GFR-MDRD 11; Glucose 87 mg/dL (83-110); Hemoglobin 7.5 g/dL (12.0-16.0); Lymphocytes 8 % (21-51); MDiff Complete? YES; Magnesium 2.1 mg/dL (1.6-2.6); Mean Corpuscular HGB CONC 30.3 g/dL (32.0-36.0); Mean Corpuscular Hemoglobin 28.9 pg (27.0-31.0); Mean Corpuscular Volume 95.4 fL (78.0-98.0); Mean Platelet Volume 9.6 fL (7.4-10.4); Metamyelocyte 3 % (0-0); Monocytes 8 % (0-10); Myelocyte 2 % (0-0); Neutrophil 62 % (42-75); Phosphorus 5.1 mg/dL (2.3-4.7); Platelet Count 195 thou/uL (130-400); Platelet Morphology Comment Appears Adequate; Potassium 4.2 mmol/L (3.5-5.1); RBC Distribution Width 17.5 % (11.5-14.5); Red Blood Cell (RBC) Count 2.58 mill/uL (4.20-5.40); Sodium 142 mmol/L (136-145); White Blood Cell (WBC) Count 7.7 thou/uL (4.8-10.8)
[2019-02-19 05:54] VITALS: BMI 20.3
--- NOTE | 2019-02-19 06:18 | PRG ---
DATE OF SERVICE: 02/19/2019 SUBJECTIVE: Ms. Little is a 73-year-old white female with ESRD - on maintenance hemodialysis, admitted due to a fall. She was found to have subdural hematoma. Neurosurgery has evaluated this patient and their recommendation was conservative management. During the initial workup, she was found to have multiple pulmonary nodules on CT scan of the chest. Please note, this patient has a history of breast cancer. In addition, last night, the patient has a short run of ventricular tachycardia , but was hemodynamically stable and clinically asymptomatic. She underwent dialysis yesterday without any difficulty. OBJECTIVE: VITAL SIGNS: Blood pressure 103/49, heart rate 95, respiratory rate 12, pulse ox 97%, temperature 98.6. GENERAL: Awake, alert, comfortable, not in distress. SKIN: Adequate turgor. HEENT: Pinkish conjunctivae, anicteric sclerae. NECK: No neck mass. No carotid bruits. No JVD. CHEST: No deformities. LUNGS: Clear breath sounds. HEART: Normal sinus rhythm. No murmur. No gallops. No rubs. ABDOMEN: Globular, soft, nontender. No masses. EXTREMITIES: No edema. No deformities. MEDICATIONS: Medications of February 19, 2019, reviewed. LABORATORY DATA: Laboratories of February 19, 2019, white count 7.7, hemoglobin 7.5, sodium 142, potassium 4.2, chloride 100, carbon dioxide 23, BUN 38, creatinine 3.91, glucose 87, phosphorus 5.1, magnesium 2.1. ASSESSMENT AND PLAN: 1. Subdural hematoma - conservative management. No surgical intervention indicated. 2. Anemia, continuing weekly Epogen. P.r.n. blood transfusion. 3. End-stage renal failure, stable. We will continue current Saturday, Saturday , and Saturday hemodialysis regimen. Fluid removal as tolerated. Using no heparin due to the recent subdural hematoma. 4. Pulmonary metastatic lesions ? - we will consult Hematology officially. Please note, this patient did have a history of breast cancer. 5. Overall prognosis remains guarded with this patient. Recheck basic metabolic and CBC in a.m. Job ID: [id number] MTDD
[2019-02-19] MEDS ORDERED: Lidocaine 1% w/Epinephrine 1:100K 20 ML VIAL ONE (09:30)
[2019-02-19] MEDS ORDERED: Vancomycin HCl 500 MG in Sodium Chloride 0.9% 100 ML IVPB SCH (10:45)
[2019-02-19] MEDS ORDERED: HOLD VANCOMYCIN FOR LEVEL >20 FS SCH (10:45)
[2019-02-19] MEDS ORDERED: Vancomycin HCl 750 MG in Sodium Chloride 0.9% 250 ML 250 ML IVPB SCH (10:45)
[2019-02-19] MEDS ORDERED: Vancomycin HCl 0.75 GM in Sodium Chloride 0.9% 250 ML 300 ML IVPB SCH (10:45)
[2019-02-19] MEDS ORDERED: Vancomycin HCl 1 GM in Premix Bag 1 BAG IVPB SCH ×2 (10:45→14:00)
[2019-02-19] MEDS ORDERED: Vancomycin HCl 250 MG in Sodium Chloride 0.9% 100 ML IVPB SCH (10:45)
[2019-02-19 12:18] LABS: Vancomycin, Random Less than 1.1 ug/mL (See Comment)
--- NOTE | 2019-02-19 14:33 | PRG ---
DATE OF SERVICE: 02/19/2019 SUBJECTIVE: Dianna Little is a 73-year-old female patient is well known to me. She has had a left arm fistula, which had stents and multiple aneurysms and was malfunctioning and eventually thrombosed. She underwent left arm dialysis graft inflow, brachial artery outflow axillary vein. She had a right IJ cuffed tunneled dialysis catheter. In my absence, this has been removed as that she developed an infection. I have been asked to see regarding draining wound over right chest from the catheter tunnel exit site. At the bedside, she has a hematoma/abscess over the right chest at the old right IJ cuffed tunneled catheter. ASSESSMENT AND PLAN: 1. Right chest abscess related to hemodialysis catheter, which has been removed. We will plan bedside incision and drainage. We will plan to be by later this morning afternoon to drain this. We will send cultures. 2. Functional left arm graft with well-healed wounds and no need to replace her hemodialysis catheter. Job ID: [id number]
--- NOTE | 2019-02-19 15:59 | PRG ---
DATE OF SERVICE: 02/19/2019 SUBJECTIVE: The patient is currently on the intermediate care unit. She had no issues overnight. Yesterday, she had undergone hemodialysis. Today, we are told that it is not planned for today. The patient did have a fever of 101 yesterday late afternoon, but has been afebrile since. The patient had Oncology consultation placed in regard to her pulmonary nodules found on the CT scan of her chest. OBJECTIVE: VITAL SIGNS: Temperature 98.6, heart rate 96, blood pressure 132/65, respirations 23, and oxygen saturation 98% on room air. GENERAL: The patient is resting comfortably in bed. She is awake and more verbally responsive and appropriate this morning. LUNGS: Clear to auscultation bilaterally. HEART: Regular rate and rhythm. ABDOMEN: Soft, flat, nontender with active bowel sounds. EXTREMITIES: Neurovascularly intact x4. LABORATORY FINDINGS: White blood cell count 7.7, hemoglobin 7.5, hematocrit 24.6, platelets 195. Sodium 142, potassium 4.2, chloride 100, CO2 of 23, BUN 38, creatinine 3.19, glucose 87, magnesium 2.1, phosphorus 5.1. There are no radiographs reviewed this morning. ASSESSMENT AND PLAN: 1. Status post subdural hematoma. Continue supportive care. 2. Anemia, continue weekly Epogen per Nephrology. 3. End-stage renal disease, stable. Continue dialysis per Nephrology. 4. Possible pulmonary metastatic lesions, Oncology consultation submitted. Dr. Mora was contacted in regard to her port site inflammatory changes and his plan was to do an incision and debridement at bedside and culture the wound. We will continue supportive care, antibiotics and discuss placement with the family. The patient was evaluated this morning with Dr. Medina. Job ID: [id number]
--- NOTE | 2019-02-19 16:55 | CON ---
DATE OF CONSULTATION: REASON FOR CONSULT: Lung nodules. 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 She had a recent fall and presented to the emergency room for evaluation. She was noted to have a left subdural hematoma and is being managed by Neurosurgery and Trauma. She had a chest CT evaluation, which showed scattered oval and rounded soft tissue densities of varying sizes, the largest was 1.7 cm and abuts the posterolateral pleura of the right upper lobe. Also seen was an abnormality of the right anterior chest with an inflammatory process. She has been evaluated by Dr. Mora. The right anterior chest site is a previous dialysis catheter site and possibly an abscess. Her lung nodules are concerning for malignant process. The patient denies any complaints at this time. She does have routine mammograms, last one was in August of 2018 and was normal. The patient had low-grade ductal carcinoma in situ in 2011. She underwent excision with negative margins. She completed radiation therapy in 2012 and was on Evista, aromatase inhibitor for 5 years. We were asked to see her regarding her pulmonary nodules. PAST MEDICAL HISTORY: 1. 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 2. Atypical lobular hyperplasia of the right breast in 2004. 3. End-stage renal disease. 4. Bipolar disorder. 5. Glaucoma. 6. Hypertension. 7. History of CVA. PAST SURGICAL HISTORY: 1. . 2. Left breast biopsy and lumpectomy. 3. Hernia repair. 4. Tubal ligation. 5. Vascular access surgeries. ALLERGIES: NO KNOWN DRUG ALLERGIES. HOME MEDICATIONS: 1. Lipitor 20 mg daily. 2. Renvela t.i.d. 3. Norvasc 10 mg daily. 4. Eliquis 5 mg b.i.d. FAMILY HISTORY: Mother of colon cancer. SOCIAL HISTORY: , has 3 children. Lives alone. No alcohol, tobacco, or illicit drug use. REVIEW OF SYSTEMS: Ten-point review of systems is negative, except for noted in HPI. PHYSICAL EXAMINATION: VITAL SIGNS: Temperature is 98.6, pulse is 96, respiratory rate is 22, BP is 106/63. She is 97% on room air. GENERAL: Chronically ill-appearing female, in no acute distress. HEENT: Normocephalic, atraumatic. Pupils are equal and reactive to light. NECK: Supple. CV: Regular rate and rhythm. LUNGS: Clear anterior. ABDOMEN: Soft and nontender. Bowel sounds are positive. EXTREMITIES: No clubbing, cyanosis, or edema. SKIN: She has an open draining mass in her right anterior chest. HEMATOLOGICAL: There are no petechiae or purpura. NEUROLOGICAL: Nonfocal. PSYCH: The patient is alert and appropriate. PERTINENT LABS AND X-RAYS: Current WBCs are 7.7, hemoglobin 7.5, hematocrit 24.6, platelet counts 195,000. She has 62% neutrophils, 17% bands, 8% lymphocytes. Sodium is 142, potassium is 4.2, chloride is 100, CO2 is 23, BUN is 38, creatinine is 3.91, lactic acid is 2, calcium is 9.9, phosphorus is 5.1, magnesium is 2.1, total bilirubin is 0.9, AST is 80, ALT is 39, alkaline phosphatase is 84. BNP is 3215. Serum total protein 5.3, albumin 2.9. Radiology per HPI. ASSESSMENT: 1. Subdural hematoma after a fall. 2. End-stage renal disease. 3. Lung nodules. 4. Right anterior chest abscess. DISCUSSION: The patient's subdural hematoma is stable. Dr. Mora is planning an I and D of her chest wound. She has a high risk of reoccurrence of breast cancer. She will need a biopsy of one of her lung nodules at some point. This may be metastatic breast cancer. She is a poor candidate for chemotherapy. She was hormone receptor positive in the past and certainly would tolerate an aromatase inhibitor if she has HR positive metastatic breast cancer. Would recommend resolution of her acute findings prior to biopsy. This was discussed with patient who wishes to proceed. No family at bedside. Case discussed with Dr. Sharp. Thank you for the consult. We will follow along in her hospital course. Job ID: [id number] [facility]
[2019-02-19] MEDS: Famotidine/PF 20 mg/2ml Vial SLOW IVP SCH (20:28)
[2019-02-20 06:03] LABS: Anion Gap 17 mmol/L (10-20); BUN (Urea Nitrogen) 63 mg/dL (9.8-20.1); Calc. Creatinine Clearance 8 mL/min (70-130); Calcium 9.9 mg/dL (7.8-10.44); Carbon Dioxide 28 mmol/L (23-31); Chloride 96 mmol/L (98-107); Estimated GFR-MDRD 8; Glucose 101 mg/dL (83-110); Potassium 4.2 mmol/L (3.5-5.1); Sodium 137 mmol/L (136-145)
[2019-02-20 06:44] LABS: Hemoglobin 7.2 g/dL (12.0-16.0); Mean Corpuscular HGB CONC 29.2 g/dL (32.0-36.0); Mean Corpuscular Hemoglobin 27.6 pg (27.0-31.0); Mean Corpuscular Volume 94.5 fL (78.0-98.0); Mean Platelet Volume 9.6 fL (7.4-10.4); Platelet Count 215 thou/uL (130-400); RBC Distribution Width 17.8 % (11.5-14.5); Red Blood Cell (RBC) Count 2.61 mill/uL (4.20-5.40)
--- NOTE | 2019-02-20 08:20 | OP ---
DATE OF PROCEDURE: 02/19/2019 PREOPERATIVE DIAGNOSIS: End-stage renal disease, on maintenance dialysis using left arm graft. Previously removed right IJ cuffed tunneled hemodialysis catheter with a right chest abscess at the exit site. ANESTHESIA: 1% Xylocaine with epinephrine. PROCEDURES PERFORMED: Incision and drainage of right abscess and evacuation of hematoma. DESCRIPTION OF PROCEDURE: With the patient was at bedside in the room, the right chest was prepared with alcohol. Local anesthetic 1% Xylocaine with epinephrine was infiltrated in the skin and subcutaneous tissue, and a 5-cm incision was made evacuating old hematoma and purulent material, sent for culture and sensitivity. Saline wet-to-dry dressing was applied. The patient tolerated the procedure well. Job ID: [id number]
[2019-02-20 08:39] LABS: Band 36 % (5-11); Eosinophils 4 % (0-10); Hypochromia SLIGHT = 6-15 cells (100X) (0-5/hpf); Lymphocytes 13 % (21-51); MDiff Complete? YES; Monocytes 4 % (0-10); Myelocyte 5 % (0-0); Neutrophil 38 % (42-75); Nucleated RBC 3 % (0); Platelet Morphology Comment Appears Adequate; Polychromasia SLIGHT = 2-3 cells (100X) (0-2/hpf)
[2019-02-20 09:32] LABS: Iron 35 ug/dL (50-170); Iron Binding Capacity, Total 146 mcg/dL (265-497)
--- NOTE | 2019-02-20 11:48 | PRG ---
DATE OF SERVICE: 02/20/2019 SUBJECTIVE: A 73-year-old female with end-stage renal disease, on maintenance hemodialysis, prior cerebrovascular accident and chronic anticoagulation with Eliquis, admitted with subdural hematoma after a fall at home. Nephrology is seeing the patient for maintenance hemodialysis. The patient is status post incision and drainage of right upper chest fluid collection/abscess. She reports doing well today. The patient dialyzes on Saturday, Saturday, Saturday with last dialysis on Saturday. The patient had fever with T-max of 101 on 02/18, but has been afebrile subsequently. OBJECTIVE: VITAL SIGNS: Temperature 99.3, pulse 112, respiratory rate 22, SpO2 94 on 1 L nasal cannula oxygen, blood pressure is 145/64. GENERAL: Thin elderly female, in no obvious distress. The patient is acutely ill-looking. Afebrile. Anicteric. Acyanotic. HEENT: Forehead dressing noticed. Pupils are reacting to light. Oral mucosa is moist. CHEST: Fair air entry bilaterally with few transmitted sounds. No obvious rhonchi were appreciated. Right upper chest dressing noted. CARDIOVASCULAR: Regular rhythm, but tachycardic. Normal heart sounds one and two. GI: Full. Soft, nontender, nondistended with normal bowel sounds. EXTREMITIES: Mild edema of right elbow noted. Left arm AV fistula noted. No obvious edema of lower extremities appreciated. NEUROLOGIC: Conscious and alert. Oriented at least to person and place. Some memory lapses and mild confusion are appreciated. DIAGNOSTIC DATA: CBC showed WBC count of 9.0, hemoglobin of 7.2, platelet of 215. BMP showed sodium 137, potassium 4.2, chloride 96, CO2 of 28, BUN 63, creatinine 5.45, glucose 101, calcium 9.9. ASSESSMENT AND PLAN: 1. End-stage renal disease on hemodialysis Saturday, Saturday, Saturday. We will dialyze the patient today with UF as tolerated. There will be no anticoagulation given recent subdural hematoma. 2. Anemia in chronic kidney disease: The patient is on Epogen weekly. Hemoglobin is down from 11.4 on admission on February 16 to 7.2 currently. There is some component of acute blood loss superimposed on chronic kidney disease. We will also get iron chemistry to see if the patient will benefit from IV iron therapy. 3. Subdural hematoma: No surgical intervention indicated. 4. Anterior right chest fluid collection/abscess status post incision and drainage. Antibiotics as per primary attending. Wound care as per General Surgery. 5. Multiple lung lesions concerning for metastatic disease. Hematology-Oncology evaluation is in progress. The patient has prior history of breast cancer. 6. Encephalopathy: Multifactorial most likely with subdural and infective process contributing. Job ID: [id number]
[2019-02-20 12:11] LABS: Vancomycin, Random 14.1 ug/mL (See Comment)
[2019-02-20 15:01] VITALS: TEMP 98.8
[2019-02-20 16:01] VITALS: BP 130/60
[2019-02-20] MEDS ORDERED: Sevelamer Carbonate 800 MG TAB PO SCH (17:00)
--- NOTE | 2019-02-20 17:02 | PRG ---
DATE OF SERVICE: 02/20/2019 Dianna Little is doing well today. Her Wound Care reports her wound is healthy. There was minimal bleeding. I would recommend at rehab that she have normal saline wet-to-dry dressings every 1 to 2 days, they can wash it with soap and water. I will see her in the office in 2 to 3 weeks. Job ID: [id number]
[2019-02-20] MEDS ORDERED: Atorvastatin Calcium 20 MG TAB PO SCH (21:00)
--- NOTE | 2019-02-20 23:35 | DIS ---
DATE OF ADMISSION: 02/16/2019 DATE OF DISCHARGE: 02/20/2019 ADMISSION DIAGNOSES: Fall on Eliquis, left subdural hematoma with leftward shift, forehead avulsion laceration, right anterior chest wall lesion, widespread lung metastatic disease and sepsis. DISCHARGE DIAGNOSES: Fall on Eliquis, left subdural hematoma with leftward shift, forehead avulsion laceration, right anterior chest wall lesion, widespread lung metastatic disease and sepsis. CONSULTING PHYSICIANS: 1. Dr. Martinez of Neurosurgery. 2. Dr. Blake of Nephrology. 3. Dr. Sharp of Hem-Onc. 4. Dr. Mora of General Surgery. PROCEDURE PERFORMED: The patient had I and D of the right anterior chest wall lesion completed on February 19, 2019. HOSPITAL COURSE: The patient is a 73-year-old female, who presented to the emergency department via EMS after a fall on Eliquis. After trauma evaluation was determined that she had a left subdural hematoma with leftward shift forehead avulsion and laceration, right anterior chest wall lesion and widespread lung metastatic disease. On further evaluation, the patient was tachycardic and tachypneic, and it was determined that she had sepsis as well. She was admitted to the ICU. Dr. Martinez of Neurosurgery was consulted, who recommended follow up CT scan imaging in the morning and close neurological following. Dr. Blake was consulted and the patient was dialyzed the next morning. The patient was started given IV fluids and started on IV antibiotics as well. Other cultures were drawn, but it was suspected that the right anterior chest wall was the source of the infection as there was previously a tunneled dialysis catheter located in that location. The patient did receive I and D of the right anterior chest wall on February 19, 2019. Cultures demonstrated the patient had Staph aureus infection. The patient was continued on vancomycin which she received with dialysis on Saturday, Saturday, and Saturday. For her widespread lung metastatic disease, Heme-Onc was consulted and recommended a biopsy of nodes after her acute illnesses and injury were resolved. At the time of discharge, the patient's pain was well controlled. She was tolerating a renal diet and she was working on Physical and Occupational Therapy. She will continue IV antibiotics for several weeks. She will also have wet-to-dry dressings on her right anterior chest wall wound. Aspirin and Eliquis will be held until followup with Dr. Martinez in the outpatient clinic, where she will also receive a repeat head CT. DISCHARGE DISPOSITION: Acute Rehab. DISCHARGE CONDITION: Satisfactory. PHYSICAL EXAMINATION: VITAL SIGNS: Temperature 98.8, heart rate 101, respirations 12, oxygen saturation 96% on room air, and blood pressure 131/56. GENERAL: Elderly female, lying in bed with no signs of acute distress. PULMONARY: Equal chest rise and fall. Clear breath sounds bilaterally. No signs of acute respiratory distress. SKIN: Anterior right chest wall lesion with I and D. wound is packed and bleeding is controlled. No sign of purulent output at this time. CARDIAC: Regular rate and rhythm. No murmurs, gallops, or rubs. GASTROINTESTINAL: Abdomen is soft, nontender, and nondistended. EXTREMITIES: 2+ pulses in all extremities. No significant swelling noted. Gross motor and sensation intact in all extremities. NEURO: GCS is 15. Alert and oriented x3. The patient is not aware of the date, but of the year. However, this has been consistent since the time of her admission. Pupils equal, round, and reactive to light bilaterally. Gross motor and sensation intact in all extremities. DISCHARGE INSTRUCTIONS: The patient is to be discharged to inpatient rehab. Activity as tolerated with no restrictions. She has renal diet with Nepro b.i.d. for supplements. She has physical and occupational therapy, as well as wound care. Wound Care is to do b.i.d. dressing changes, wet-to-dry to her right anterior chest wall. She has incentive spirometer and walker as well. DISCHARGE MEDICATIONS: 1. Lipitor. 2. Pristiq. 3. Epoetin. 4. Prolixin monthly to be given on 02/22/2019. 5. Latanoprost eyedrops. 6. Multivitamins. 7. Renvela. 8. Vancomycin to be dosed with each dialysis treatment. FOLLOWUP APPOINTMENTS: Follow up with Dr. Mora in 2 to 3 weeks, Dr. Jori Sharp in 3 to 4 weeks. No need for followup with Dr. Medina. Follow up with Dr. Blake in 1 to 2 weeks. Follow up with Dr. Tyrel Martinez in 4 weeks with repeat head CT. Hold Eliquis until followup time. This is merely a summary of the patient's hospitalization. For full details, please see her medical record in its entirety. Job ID: [id number]
[2019-02-21] MEDS ORDERED: Latanoprost 0.005% Ophth Soln 2.5 ml Bottle EA EYE SCH (09:00)
[2019-02-21] MEDS ORDERED: Venlafaxine HCl XR 75 MG CAP PO SCH (09:00)
[2019-02-21] MEDS ORDERED: Multivitamins CHEW w/Iron Tablet PO SCH (09:00)
--- NOTE | 2019-02-21 14:23 | EKG ---
Test Reason : Blood Pressure : / mmHG Vent. Rate : 124 BPM Atrial Rate : 124 BPM P-R Int : 140 ms QRS Dur : 092 ms QT Int : 310 ms P-R-T Axes : 062 -44 083 degrees QTc Int : 445 ms Sinus tachycardia Left axis deviation Left ventricular hypertrophy with repolarization abnormality Abnormal ECG Confirmed by RAPHAEL VALERA ([id number]), video effects editor FLOYD GARCIA ([id number] on 02/21/2019 2:22:54 PM Referred By: Confirmed By:RAPHAEL VALERA
== END 2019-02-20 19:01 | DRG 856 ==
LOC: ERS 15:00 → CCU 17:51 → IMCU/EMU 02-18 13:33
PROVIDERS: ADMIT Surgery; ATTEND Surgery
PROC: 5A1D70Z Performance of Urinary Filtration, Intermittent, Less than 6 Hours Per Day (ICD-10-PCS; principal; 2019-02-16)
PROC: 0J960ZZ Drainage of Chest Subcutaneous Tissue and Fascia, Open Approach (ICD-10-PCS; 2019-02-19)
PROC: 0JC60ZZ Extirpation of Matter from Chest Subcutaneous Tissue and Fascia, Open Approach (ICD-10-PCS; 2019-02-19)
DX: T81.41XA Infection following a procedure, superficial incisional surgical site, initial encounter (principal); S06.5X0A Traumatic subdural hemorrhage without loss of consciousness, initial encounter; N18.6 End stage renal disease; G93.5 Compression of brain; J86.9 Pyothorax without fistula; A41.01 Sepsis due to Methicillin susceptible Staphylococcus aureus; E87.1 Hypo-osmolality and hyponatremia; N39.0 Urinary tract infection, site not specified; C78.00 Secondary malignant neoplasm of unspecified lung; I47.2 Ventricular tachycardia; I12.0 Hypertensive chronic kidney disease with stage 5 chronic kidney disease or end stage renal disease; G93.49 Other encephalopathy; L02.213 Cutaneous abscess of chest wall; E87.5 Hyperkalemia; E78.5 Hyperlipidemia, unspecified; E83.42 Hypomagnesemia; D63.1 Anemia in chronic kidney disease; F31.9 Bipolar disorder, unspecified; S08.0XXA Avulsion of scalp, initial encounter; W19.XXXA Unspecified fall, initial encounter; Y92.019 Unspecified place in single-family (private) house as the place of occurrence of the external cause; H40.9 Unspecified glaucoma; Z86.73 Personal history of transient ischemic attack (TIA), and cerebral infarction without residual deficits; Z79.01 Long term (current) use of anticoagulants; Z98.51 Tubal ligation status; Z99.2 Dependence on renal dialysis; Z79.899 Other long term (current) drug therapy; Y84.8 Other medical procedures as the cause of abnormal reaction of the patient, or of later complication, without mention of misadventure at the time of the procedure
CPT/HCPCS: 12013; 36415; 36430; 51702; 70450; 71045; 71250; 72100; 72125; 80048; 80053; 80170; 80202; 80306; 80307; 81003; 81015; 82550; 82553; 82728; 83540; 83550; 83605; 83735; 83880; 84100; 84484; 85007; 85025; 85027; 85610; 85730; 86850; 86900; 86901; 87040; 87070; 87077; 87086; 87186; 87205; 87340; 90471; 90715; 90935; 93005; 96365; 96374; A4353; G0257; G0390; J0131; J0690; J0692; J1580; J2001; J2060; J2270; J3370; J3430; J3490; J7050; P9059; Q5105; S0028

== ENCOUNTER 2019-03-31 10:00 | Outpatient (CLI) | payer MEDICARE, MEDICAID ==
--- NOTE | 2019-03-31 10:18 | CT ---
CT BRAIN: HISTORY: Trauma. Subdural hematoma. COMPARISON: Previous exam from 02/18/2019. FINDINGS: Noncontrast enhanced CT images of the brain demonstrate the previously noted left parietal subdural h ematoma to be resolving. A minimal amount of left parietal subdural blood remains. This appears to be fairly chronic. The ventricles are of normal size. No evidence of acute intracranial masses o r lesions seen. No evidence of significant encephalomalacic or gliotic changes seen adjacent to the resolving left-sided subdural collection. IMPRESSION: Resolving left subdural hematoma. Transcribed Date/Time: 03/31/2019 11:54 AM
== END 2019-03-31 10:01 | disposition home or self-care (01) ==
LOC: TBSIIMAG 10:00
PROVIDERS: ATTEND Neurological Surgery
DX: S06.5X0D Traumatic subdural hemorrhage without loss of consciousness, subsequent encounter (principal)
CPT/HCPCS: 70450

== ENCOUNTER 2019-04-07 13:52 | Outpatient (CLI) | payer MEDICARE, MEDICAID ==
--- NOTE | 2019-04-07 14:44 | CT ---
EXAM: CT chest, abdomen, and pelvis without contrast: HISTORY: Breast cancer, lung nodule. COMPARISON: CT thorax on 02/16/2019 FINDINGS: CT THORAX: Lungs: There has been interval resolution of the previously seen multiple bilateral pulmonary nodules . Few residual slight nodular groundglass densities are seen in the region of some the larger nodules within the upper lobes bilaterally with pleural-based parenchymal density seen lateral aspect left upper lobe which is in the region of a previously seen nodular density, but this has also diminished in size. There is a solitary pulmonary nodule seen at the posteromedial right lower lobe w hich measures approximately 5 mm. Pleura: A small left pleural effusion is present which was not present on the prior exam. Lymph nodes: Lack of intravenous contrast does limit sensitivity for evaluation of the mediastinal st ructures, but there is a mildly prominent precarinal lymph node seen just superior to the right main pulmonary artery which measures 1.4 cm in short axis dimension. Similar finding was seen on the prior exam. No definite additional enlarged lymph nodes are seen. A moderate-sized hiatal hernia is present with the fundus and proximal body of the stomach above the level of the hemidiaphragms. Mediastinum: Vascular calcifications are seen in the coronary arteries as well as involving the thora cic aorta. There is a long segment of venous stents seen in the left upper extremity vein and extending into the left subclavian and innominate veins unchanged from prior exam. Chest wall: The subcutaneous edema and inflammatory changes as well as masslike density in the region of the right anterior chest wall superiorly has resolved. Findings could be related to interval treatment. CT ABDOMEN AND PELVIS: Lack of intravenous contrast limits sensitivity for evaluation of the parenchymal organs. Liver: There is a stable hypodense lesion seen within the anterior aspect of the right hepatic lobe m easuring 8 mm stable in size from prior study. Gallbladder: Within normal limits. \ Pancreas: Grossly within normal limits. Spleen: Within normal limits. Adrenal glands: Within normal limits. Kidneys: Atrophic with associated calcifications. Peripherally calcified hypodense lesions are again seen in the left kidney. Urinary Bladder: Decompressed. Reproductive organs: Calcifications are seen in the uterus. Bowel: Colonic diverticulosis is present. Moderate amount of retained fecal material is seen througho ut the colon. Adenopathy:No lymphadenopathy within the abdomen or pelvis. Peritoneum: No free fluid or fluid collection is seen. No free intraperitoneal gas is identified. Abdominal wall: No abnormalities seen. Osseous structures: Diffuse sclerosis involving the osseous structures. This is overall nonspecific. Metastatic disease is a possibility. IMPRESSION: 1. Nonspecific diffuse sclerosis of the osseous structures. Diffuse widespread osseous metastatic dis ease is a possibility. Bone scan may be helpful for further evaluation. The diffuse sclerosis of the osseous structures was present on a prior CT of the cervical spine and CT of the thorax on 02/17/20 19. 2. Significant interval improvement and resolution of bilateral pulmonary nodules with a few subcenti meter nodular groundglass densities in the upper lobes likely corresponding to previously seen pulmonary nodules in these regions. There is a noncalcified 5 mm pulmonary nodule in the posteromedia l right lower lobe. 3. Stable subcentimeter too small to characterize hypodense lesion right hepatic lobe. 4. Moderate size hiatal hernia. 5. Small left pleural effusion and atelectasis. 6. Enlarged precarinal lymph node unchanged from prior exam. 7. Atrophic appearance bilateral kidneys with calcifications. Peripherally calcified hypodense lesion s are again seen in the left kidney. 8. Colonic diverticulosis.
== END 2019-04-07 13:53 | disposition home or self-care (01) ==
LOC: BICCT 13:52
PROVIDERS: ATTEND Internal Medicine Hematology & Oncology
DX: R91.8 Other nonspecific abnormal finding of lung field (principal); N18.6 End stage renal disease; M89.9 Disorder of bone, unspecified; K76.89 Other specified diseases of liver; K44.9 Diaphragmatic hernia without obstruction or gangrene; J98.11 Atelectasis; J90 Pleural effusion, not elsewhere classified; R59.0 Localized enlarged lymph nodes; N28.89 Other specified disorders of kidney and ureter; N26.1 Atrophy of kidney (terminal); K57.30 Diverticulosis of large intestine without perforation or abscess without bleeding; Z85.3 Personal history of malignant neoplasm of breast
CPT/HCPCS: 71250; 74177

== ENCOUNTER 2019-04-23 09:06 | Outpatient (CLI) | payer MEDICARE, MEDICAID ==
--- NOTE | 2019-04-23 13:36 | NM ---
Radionucleotide bone scan HISTORY: Diffuse osseous sclerosis. Breast cancer. Renal failure. FINDINGS: There is diffuse, symmetric, and fairly homogeneous uptake of radiotracer throughout the amelia joy. It is more pronounced at the axial skeleton band the appendicular. No focal areas of significantly increased radiotracer uptake are apparent. Uptake is not seen within the kidneys, consistent with renal failure. IMPRESSION: Symmetric, diffuse increase in bone radiotracer uptake. Renal osteodystrophy is the favor ed diagnosis.
== END 2019-04-23 09:07 | disposition home or self-care (01) ==
LOC: NM 09:06
PROVIDERS: ATTEND Internal Medicine Hematology & Oncology
DX: D05.11 Intraductal carcinoma in situ of right breast (principal); R93.7 Abnormal findings on diagnostic imaging of other parts of musculoskeletal system
CPT/HCPCS: 78306; A9503

== ENCOUNTER 2019-10-12 09:22 | Outpatient (CLI) | payer MEDICARE, MEDICAID ==
--- NOTE | 2019-10-12 10:03 | MMO ---
Bilateral MAMMO Bilat Screen DDI+LES. CLINICAL HISTORY: Patient is 74 years old and is seen for screening. The patient has no family history of breast cancer. 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 The patient has a history of left Ultrasound Guided Core Biopsy in August, - malignant, left Excisional Biopsy in August, - malignant, right Excisional Biopsy in Feb, 2005 - papilloma, left Stereotatic Biopsy in Feb, 1998 - BENIGN and bilateral Excisional Biopsy in - benign. VIEWS: The views performed were: bilateral craniocaudal with tomosynthesis and bilateral mediolateral oblique with tomosynthesis. FILMS COMPARED: The present examination has been compared to prior imaging studies performed at [facility] on 07/07/2015, 07/12/2016, 07/19/2017 and 09/02/2018. This study has been interpreted with the assistance of computer-aided detection. MAMMOGRAM FINDINGS: The breasts are heterogeneously dense, which could obscure a lesion on mammography. Benign calcifications are noted bilaterally. There are no suspicious masses, suspicious calcifications, or new areas of architectural distortion. IMPRESSION: THERE IS NO MAMMOGRAPHIC EVIDENCE OF MALIGNANCY. A ROUTINE FOLLOW-UP MAMMOGRAM IN 1 YEAR IS RECOMMENDED. THE RESULTS OF THIS EXAM WERE SENT TO THE PATIENT. ACR BI-RADS Category 2 - Benign finding MAMMOGRAPHY NOTE: 1. A negative mammogram report should not delay a biopsy if a dominant of clinically suspicious mass is present. 2. Approximately 10% to 15% of breast cancers are not detected by mammography. 3. Adenosis and dense breasts may obscure an underlying neoplasm. Reported by: HUGH SINGH MD Electonically Signed: [id number]
== END 2019-10-12 09:23 | disposition home or self-care (01) ==
LOC: BICMAMMO 09:22
PROVIDERS: ATTEND Specialist
DX: Z12.31 Encounter for screening mammogram for malignant neoplasm of breast (principal); Z85.3 Personal history of malignant neoplasm of breast
CPT/HCPCS: 77063; 77067

== ENCOUNTER 2019-11-05 14:27 | Outpatient (CLI) | payer MEDICARE, MEDICAID ==
--- NOTE | 2019-11-05 15:50 | RAD ---
TWO VIEW CHEST: 11/05/19 HISTORY: Dyspnea. COMPARISON: 03/10/19. Chronic lung change with mild hyperexpansion. Vascular engorgement and mild interstitial prominence i s again seen stable in appearance. Opacification of the left diaphragm and CP angle suggest small lef t sided effusion. There is cardiomegaly. There is a fixed diaphragmatic hernia. IMPRESSION: 1. Cardiomegaly with mild vascular engorgement. 2. Fixed diaphragmatic hernia. 3. Evidence of left sided effusion. Findings are very similar to the prior study of 03/10/19. POS: [facility]
== END 2019-11-05 14:28 | disposition home or self-care (01) ==
LOC: RAD 14:27
PROVIDERS: ATTEND Internal Medicine Pulmonary Disease
DX: R06.00 Dyspnea, unspecified (principal); I51.7 Cardiomegaly; K44.9 Diaphragmatic hernia without obstruction or gangrene; J90 Pleural effusion, not elsewhere classified; J81.1 Chronic pulmonary edema
CPT/HCPCS: 71046

== ENCOUNTER 2019-12-27 17:45 | Inpatient (IN) | payer MEDICARE, MEDICAID ==
[~2019-12-27 17:45] MED LIST changes: -Bupivacaine HCl 0.5%/Epinephrine 1:200,000/PF 30 ml Vial ONE; -PROPOFOL 200 MG/20 ML VIAL ONE
[2019-12-27 18:26] LABS: #Monocytes 0.8 thou/uL (0.11-0.59); #Neutrophils 6.8 thou/uL (1.40-6.50); %Basophils 0.5 % (0.0-1.0); %Eosinophils 0.2 % (0.0-10.0); %Lymphocytes 11.6 % (21.0-51.0); %Monocytes 8.9 % (0.0-10.0); %Neutrophils 78.9 % (42.0-75.0); Hemoglobin 11.1 g/dL (12.0-16.0); Mean Corpuscular HGB CONC 33.1 g/dL (32.0-36.0); Mean Corpuscular Hemoglobin 32.7 pg (27.0-31.0); Mean Corpuscular Volume 98.8 fL (78.0-98.0); Platelet Count 218 thou/uL (130-400); RBC Distribution Width 14.8 % (11.5-14.5); Red Blood Cell (RBC) Count 3.38 mill/uL (4.20-5.40); White Blood Cell (WBC) Count 8.7 thou/uL (4.8-10.8)
[2019-12-27] MEDS ORDERED: Insulin Regular 300 UNITS/3 ML VIAL ONE ×2 (18:29→18:32)
[2019-12-27] MEDS ORDERED: Sodium Bicarb 50 MEQ/50 ML VIAL ONE ×2 (18:29→18:32)
[2019-12-27] MEDS ORDERED: Dextrose 50% Abboject 50 ML SYRINGE ONE ×2 (18:29→18:32)
[2019-12-27] MEDS ORDERED: Calcium Chloride 1 GM/10 ML Abboject SYRINGE ONE (18:32)
[2019-12-27 18:48] LABS: ALT (SGPT) 569 U/L (8-55); AST (SGOT) 237 U/L (5-34); Albumin 3.7 g/dL (3.4-4.8); Alkaline Phosphatase 242 U/L (40-110); Anion Gap 35 mmol/L (10-20); Bilirubin, Total 0.7 mg/dL (0.2-1.2); Calc. Creatinine Clearance 0 mL/min (70-130); Calcium 8.5 mg/dL (7.8-10.44); Carbon Dioxide 11 mmol/L (23-31); Chloride 100 mmol/L (98-107); Estimated GFR-MDRD 2; Globulin 2.3 g/dL (2.4-3.5); Glucose 151 mg/dL (83-110); Sodium 138 mmol/L (136-145)
[2019-12-27 18:51] LABS: Potassium 7.6 mmol/L (3.5-5.1)
--- NOTE | 2019-12-27 18:51 | RAD ---
Portable frontal chest radiograph: 12/27/2019 COMPARISON: 11/05/2019 HISTORY: Shortness of breath FINDINGS: Stable enlargement of the cardiac silhouette. Stable large hiatal hernia. Blunting of the c ostophrenic angles suggests stable small bilateral pleural effusions. No lobar consolidation or alveolar edema. Extensive vascular stent material overlies the left lung apex and imaged left upper e xtremity. IMPRESSION: No significant interval change.
[2019-12-27 18:59] LABS: BUN (Urea Nitrogen) 169 mg/dL (9.8-20.1)
[2019-12-27] MEDS ORDERED: Albuterol Sulfate 2.5 mg/3 ml Neb ONE (18:59)
[2019-12-27 19:10] LABS: CKMB 6.4 ng/mL (0-6.6)
[2019-12-27 20:13] LABS: HBSAg Index 0.16 S/CO (0-0.99); Hep B Surf Ag Non-Reactive S/CO (NonReactive)
[2019-12-27] MEDS ORDERED: Acetaminophen 325 MG TAB PO PRN (20:17)
[2019-12-27] MEDS: Heparin 5,000 UNITS/ML VIAL SC SCH (22:10)
[2019-12-27 23:26] LABS: BUN (Urea Nitrogen) 160 mg/dL (9.8-20.1)
[2019-12-27 23:41] LABS: Calcium 8.4 mg/dL (7.8-10.44); Chloride 100 mmol/L (98-107); Potassium 6.1 mmol/L (3.5-5.1); Sodium 140 mmol/L (136-145)
[2019-12-27 23:42] LABS: Glucose 121 mg/dL (83-110)
[2019-12-27 23:44] LABS: Anion Gap 28 mmol/L (10-20); Carbon Dioxide 18 mmol/L (23-31)
[2019-12-27 23:45] LABS: Calc. Creatinine Clearance 3 mL/min (70-130); Estimated GFR-MDRD 2
--- NOTE | 2019-12-28 03:12 | HP ---
CHIEF COMPLAINT: Missed dialysis for the last 10 days and shortness of breath. HISTORY OF PRESENT ILLNESS: 74-year-old female with past medical history of end-stage renal dialysis, not compliant with dialysis, presented to the emergency room after missing dialysis for the last 10 days. The patient was found to be short of breath. Workup in the emergency room, the patient was hyperkalemic with a potassium of 7.6. EKG showed peaked T-waves, wide QRS, medical treatment in the ED started with calcium gluconate, sodium bicarb, D50, insulin; ED physician consulted the percussion welding machine operator who is arranging for emergent hemodialysis. In the meantime, the patient is being admitted to the critical care unit for further management. As per family, the patient is very noncompliant with her treatment especially dialysis. The patient herself does not complain of anything, but she appears to be in moderate respiratory distress. Other lab work, the patient has an elevated BNP more than 1700, troponin 0.2. Chest x-ray shows cardiomegaly with bilateral pleural effusions. PAST MEDICAL HISTORY: 1. Transient ischemic attack. 2. End-stage renal disease, on hemodialysis. 3. Breast cancer, treated with radiation. PAST SURGICAL HISTORY: 1. . 2. Lumpectomy, left breast. 3. Dialysis shunt, left arm. FAMILY HISTORY: Reviewed and noncontributory. ALLERGIES: NO KNOWN ALLERGIES. HOME MEDICATIONS: Please see home medication reconciliation form for updated medications. REVIEW OF SYSTEMS: Review of 14 systems negative except what is mentioned in the history of present illness. PHYSICAL EXAMINATION: GENERAL: The patient is awake, alert, in moderate distress. VITAL SIGNS: Blood pressure 171/90, respiratory rate is 28, temperature is 97.6, pulse is 96, oxygen saturation 96% on 2 L/minute nasal cannula. HEAD AND NECK: Normocephalic and atraumatic. Neck is supple. JVD is elevated. CHEST: Coarse bilateral breath sounds. HEART: S1, S2. Regular. ABDOMEN: Soft, nontender. Bowel sounds present. NEUROLOGIC: Awake, alert, and oriented. PSYCHIATRIC: Unable to assess. EXTREMITIES: No clubbing or cyanosis. GENITOURINARY: No flank tenderness. No suprapubic tenderness. LABORATORY DATA: Labs as mentioned above in the history present illness. IMAGING: Chest x-ray as mentioned above in the history of present illness. ASSESSMENT: 1. Acute hyperkalemia with EKG changes. 2. Fluid overload. 3. End-stage renal disease, on hemodialysis, noncompliant. 4. History of transient ischemic attack. 5. Elevated troponin, no chest pain. 6. Elevated BNP. PLAN: 1. Admit to the ICU. 2. Equipment Service Engineer consulted arranging for emergent hemodialysis. 3. Medical treatment was started for hyperkalemia with calcium gluconate, D50, insulin, and sodium bicarb. 4. Reconcile home medications. 5. DVT prophylaxis, appropriate. 6. Expected length of stay, 2 midnights or more. Job ID: [id number]
[2019-12-28 03:18] LABS: Troponin I 0.232 ng/mL (< 0.028)
[2019-12-28 07:19] LABS: #Lymphocytes 0.7 thou/uL (1.20-3.40); #Monocytes 0.5 thou/uL (0.11-0.59); #Neutrophils 4.9 thou/uL (1.40-6.50); %Basophils 0.1 % (0.0-1.0); %Eosinophils 0.2 % (0.0-10.0); %Lymphocytes 11.8 % (21.0-51.0); %Monocytes 7.8 % (0.0-10.0); %Neutrophils 80.1 % (42.0-75.0); Hemoglobin 9.4 g/dL (12.0-16.0); Mean Corpuscular HGB CONC 32.9 g/dL (32.0-36.0); Mean Corpuscular Hemoglobin 31.9 pg (27.0-31.0); Mean Corpuscular Volume 96.9 fL (78.0-98.0); Mean Platelet Volume 8.6 fL (7.4-10.4); Platelet Count 186 thou/uL (130-400); Red Blood Cell (RBC) Count 2.96 mill/uL (4.20-5.40); White Blood Cell (WBC) Count 6.1 thou/uL (4.8-10.8)
[2019-12-28 07:27] LABS: Anion Gap 22 mmol/L (10-20); BUN (Urea Nitrogen) 67 mg/dL (9.8-20.1); Calc. Creatinine Clearance 5 mL/min (70-130); Calcium 8.3 mg/dL (7.8-10.44); Carbon Dioxide 26 mmol/L (23-31); Chloride 97 mmol/L (98-107); Estimated GFR-MDRD 4; Glucose 95 mg/dL (83-110); Potassium 4.5 mmol/L (3.5-5.1); Sodium 140 mmol/L (136-145)
[2019-12-28] MEDS ORDERED: EPOETIN ALFA-EPBX (ESRD) 4,000 UNIT/ML VIAL SC SCH (09:00)
[2019-12-28] MEDS: Heparin 5,000 UNITS/ML VIAL SC SCH ×2 (09:50→22:49)
--- NOTE | 2019-12-28 10:00 | CON ---
DATE OF CONSULTATION: 12/28/2019 REASON FOR CONSULTATION: ICU stay. HISTORY OF PRESENT ILLNESS: This is a 74-year-old female, who was brought in with shortness of breath, hyperkalemia, and altered mental status after missing dialysis for the better part of 10 days. She is found to have a potassium of 7.6 and a metabolic acidosis. She received emergent dialysis last night and feels better this morning. PAST MEDICAL HISTORY: 1. End-stage renal disease, requiring hemodialysis. 2. Breast cancer. 3. Some type of psychiatric issue. 4. Transient ischemic attack. PAST SURGICAL HISTORY: 1. C-sections. 2. Lumpectomy. 3. Left arm dialysis shunt. 4. She has some kind of stent in her left brachiocephalic extending on her left subclavian vein. FAMILY MEDICAL HISTORY: Unremarkable. ALLERGIES: NONE. MEDICATIONS: 1. Pristiq 50 mg daily. 2. Lipitor 20 mg daily. 3. Renvela 2400 mg t.i.d. 4. Multivitamin one daily. 5. Latanoprost eye drops daily. 6. Retacrit 7500 units subcu every 7 days. 7. Prolixin D 12.5 mg every month. 8. Vancomycin on-call as needed. REVIEW OF SYSTEMS: Otherwise, negative. PHYSICAL EXAMINATION: VITAL SIGNS: Temperature 98.3, pulse 89, blood pressure 147/71, and O2 saturation 100%. GENERAL: She is awake, alert, in no distress. HEENT: Unremarkable. NECK: No adenopathy or JVD. LUNGS: Clear without wheezing or rhonchi. CARDIAC: S1 and S2. Regular without murmur. ABDOMEN: Soft and nontender to palpation. EXTREMITIES: No clubbing, cyanosis, or edema. LABORATORY DATA: Sodium 140, potassium 4.5, chloride 97, CO2 of 26, BUN 67, creatinine 9.1, and glucose 95. White blood cell count 6.1, hematocrit 28.7, and platelet count 186. IMAGING DATA: X-ray shows no mass, effusion, or infiltrate. ASSESSMENT: Metabolic acidosis and hyperkalemia secondary to noncompliance with dialysis - both issues are better after emergent dialysis last night. RECOMMENDATIONS: She states she is stable for transfer out to the floor at the discretion of her Nephrology and Primary Care Team. No further pulmonary issues. We will sign off. Job ID: [id number]
--- NOTE | 2019-12-28 11:37 | CON ---
DATE OF CONSULTATION: HISTORY OF PRESENT ILLNESS: Ms. Little is a 74-year-old white female with known history of ESRD, was admitted for congestive heart failure and hyperkalemia. She underwent emergent hemodialysis last night. Fluid removal was done. Her shortness of breath is much improved this morning and her hyperkalemia is also improved. We are following her up for her ESRD. Of note, this patient has missed dialysis for the last several sessions due to paranoid delusions from her underlying psychiatric problem. She has refused taking her psychiatric medications. Of interest, this patient was recently admitted at [facility]. REVIEW OF SYSTEMS: Currently, no shortness of breath. No chest pain. No syncopal episode. No nausea. No vomiting. No diarrhea. No constipation. No abdominal pain. No headache. No diplopia. CURRENT MEDICATIONS: Include; 1. Acetaminophen q.4 hours. 2. Heparin 5000 units subcu b.i.d. PAST MEDICAL HISTORY: 1. 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 2. Longstanding hypertension. 3. Bipolar disorder. 4. Osteoporosis. 5. Breast cancer in remission. 6. Status post bacteremia. PAST SURGICAL HISTORY: Status post cuffed hemodialysis catheter placement, status post colonoscopy, status post section, status post AV fistula placement, status post bilateral tubal ligation. ALLERGIES: NONE. TRAUMA: None. IMMUNIZATION: Up-to-date. HOSPITALIZATIONS: Please see past medical history. FAMILY HISTORY: No family history of ESRD. SOCIAL HISTORY: She lives in [place] and lives alone. She is and has 2 children. Status post multiple blood transfusion. Currently, no smoking. No alcohol intake. No IV drug abuse. Sedentary lifestyle. PHYSICAL EXAMINATION: VITAL SIGNS: Blood pressure is noted at 147/71, heart rate 89, respiratory rate 18, pulse ox 100%. GENERAL: Noted to be awake, alert, comfortable, not in overt distress. SKIN: Adequate turgor. HEENT: She has a slightly pale conjunctivae. Anicteric sclerae. NECK: No neck mass. No carotid bruits. No JVD. CHEST: No deformities. LUNGS: Decreased breath sounds. HEART: Normal sinus rhythm. No murmurs. No gallops. No rubs. ABDOMEN: Globular, soft, nontender. No masses. EXTREMITIES: No edema. No deformities. LABORATORY DATA: Laboratories of December 28, 2019; white count 6.1, hemoglobin 9.4. Sodium 140, chloride 97, carbon dioxide 96, potassium 4.5, BUN 67, creatinine 9.15, glucose 95, calcium 8.3. Troponin-I 0.232. BNP 17,015. IMAGING STUDIES: Chest x-ray of December 27, 2019, showed overt CHF. ASSESSMENT AND PLAN: 1. Congestive heart failure, clinically much improved with dialysis and fluid removal. 2. Anemia. We will restart Epogen 7500 units subcu every week. 3. End-stage renal disease. We will resume back her regular hemodialysis schedule of Saturday, Saturday, and Saturday. Fluid removal again as tolerated by the patient. 4. Bipolar disorder - paranoid episodes - [facility] has been consulted. Recommendation will be followed. 5. Hyperkalemia, resolved with dialysis. 6. Agree with current management. Job ID: [id number]
[2019-12-28] MEDS: Sevelamer Carbonate 800 MG TAB PO SCH ×2 (12:57→17:26)
--- NOTE | 2019-12-28 22:42 | PDOC.HOSPP ---
- Subjective Encounter Date: 12/28/19 Encounter Time: 14:00 Subjective: Patient seen and examined for Hyperkalemia. No CP/SOB. No new complaints. No overnight events - Objective Vital Signs & Weight: Vital Signs (12 hours) Temp 12/28/19 11:00 98.4 F Weight Admit Weight 122 lb Weight 122 lb 9.232 oz Most Recent Monitor Data Heart Rate from ECG 81 NIBP 153/72 NIBP BP-Mean 99 Respiration from ECG 10 SpO2 91 I&O: 12/27/19 12/28/19 12/29/19 06:59 06:59 06:59 Intake Total 160 630 Output Total 0 Balance 160 630 Result Diagrams: 12/28/19 06:39 12/28/19 06:39 Radiology Reviewed by me: Yes (CXR - no infiltrate) EKG Reviewed by me: Yes (Tele SR) Hospitalist ROS - Review of Systems Respiratory: denies: cough, dry, shortness of breath, hemoptysis, SOB with excertion, pleuritic pain, sputum, wheezing, other Cardiovascular: denies: chest pain, palpitations, orthopnea, paroxysmal noc. dyspnea, edema, light headedness, other - Medication Medications: Active Medications Generic Name Dose Route Start Last Admin Trade Name Freq PRN Reason Stop Dose Admin Epoetin Ankit-epbx 7,500 unit 12/28/19 09:00 12/28/19 09:50 Retacrit SC 7,500 unit Q7D JUDY Administration Heparin Sodium (Porcine) 5,000 units 12/27/19 21:00 12/28/19 09:50 Heparin SC 5,000 units BID JUDY Administration Sevelamer Carbonate 2,400 mg 12/28/19 12:00 12/28/19 17:26 Renvela PO 2,400 mg TID-WM JUDY Administration - Exam General Appearance: NAD Neck: supple, no JVD Heart: RRR, no gallops, no rubs, normal peripheral pulses Respiratory: no wheezes, no rales, normal chest expansion, rhonchi Gastrointestinal: soft, non-tender, no guarding, no rigidity Extremities: no cyanosis, no clubbing, no edema Neurological: no new deficit Hosp A/P - Plan DVT proph w/heparin, DVT proph w/SCDs Hyperkalemia/Volume overload/Metabolic acidosis due to missed dialysis ESRD on dialysis Schizophrenia Elevated troponin prob due to ESRD/?Type 2 OR (POA) h/o TIA Abn LFTs Diverticulosis Hiatal hernia PLAN: s/p Emergent dialysis Transfer to Tele Consult Palliative care Consult MHMR to verify home meds Add low dose ASA Repeat LFTs in AM Cont other meds Nephro input appreciated
[2019-12-28] MEDS: Latanoprost 0.005% Ophth Soln 2.5 ml Bottle EA EYE SCH (22:49)
[2019-12-29 04:11] LABS: #Eosinphils 0.1 thou/uL (0.0-0.7); #Lymphocytes 0.6 thou/uL (1.20-3.40); #Monocytes 0.4 thou/uL (0.11-0.59); #Neutrophils 3.6 thou/uL (1.40-6.50); %Basophils 0.2 % (0.0-1.0); %Eosinophils 1.2 % (0.0-10.0); %Lymphocytes 12.5 % (21.0-51.0); %Monocytes 7.9 % (0.0-10.0); %Neutrophils 78.3 % (42.0-75.0); Hemoglobin 9.8 g/dL (12.0-16.0); Mean Corpuscular HGB CONC 32.6 g/dL (32.0-36.0); Mean Corpuscular Hemoglobin 32.3 pg (27.0-31.0); Mean Corpuscular Volume 99.2 fL (78.0-98.0); Mean Platelet Volume 8.8 fL (7.4-10.4); Platelet Count 175 thou/uL (130-400); RBC Distribution Width 15.1 % (11.5-14.5); Red Blood Cell (RBC) Count 3.03 mill/uL (4.20-5.40); White Blood Cell (WBC) Count 4.6 thou/uL (4.8-10.8)
[2019-12-29 04:25] LABS: ALT (SGPT) 565 U/L (8-55); AST (SGOT) 273 U/L (5-34); Alkaline Phosphatase 189 U/L (40-110); Anion Gap 15 mmol/L (10-20); BUN (Urea Nitrogen) 30 mg/dL (9.8-20.1); Bilirubin, Total 0.6 mg/dL (0.2-1.2); Calc. Creatinine Clearance 8 mL/min (70-130); Calcium 7.8 mg/dL (7.8-10.44); Carbon Dioxide 29 mmol/L (23-31); Chloride 100 mmol/L (98-107); Estimated GFR-MDRD 8; Glucose 127 mg/dL (83-110); Potassium 4.1 mmol/L (3.5-5.1); Sodium 140 mmol/L (136-145)
[2019-12-29] MEDS: Sevelamer Carbonate 800 MG TAB PO SCH ×3 (07:32→17:59)
[2019-12-29] MEDS: Heparin 5,000 UNITS/ML VIAL SC SCH ×2 (07:32→19:57)
[2019-12-29] MEDS: Aspirin 81 mg Enteric Coated Tablet PO SCH ×2 (09:15→11:26)
[2019-12-29] MEDS: Famotidine 20 MG TAB PO SCH ×3 (09:16→19:57)
[2019-12-29] MEDS: Multivitamin W/ Minerals 1 TAB PO SCH ×2 (09:16→11:26)
--- NOTE | 2019-12-29 09:35 | PRG ---
DATE OF SERVICE: 12/29/2019 SUBJECTIVE: Ms. Little is a 74-year-old white female with known history of bipolar disorder, ESRD, and was admitted for congestive heart failure with hyperkalemia. She underwent 2 consecutive dialysis days. Her breathing is much improved. Her potassium is much better. We will be placing this patient back to her regular dialysis schedule on Saturday, Saturday, and Saturday. The patient's breathing is dramatically improved. She denies any chest pain. OBJECTIVE: VITAL SIGNS: Blood pressure is 147/75, heart rate 89, O2 saturation 94%, and temperature 97.8. GENERAL: Awake, alert, comfortable, not in distress. SKIN: Adequate turgor. HEENT: Slightly pale conjunctivae. Anicteric sclerae. NECK: No neck mass. No carotid bruits. No JVD. CHEST: No deformities. LUNGS: Clear breath sounds. HEART: Normal sinus rhythm. No murmur. No gallops. No rubs. ABDOMEN: Globular, soft, and nontender. No masses. EXTREMITIES: No edema. No deformities. MEDICATIONS: Medications of December 29, 2019, reviewed. LABORATORY DATA: Laboratories of December 29, 2019; white count 4.6, hemoglobin 9.8, sodium 140, potassium 4.1, chloride 100, carbon dioxide 29, BUN 30, creatinine 5.44, AST is 273, ALT 565, albumin is 3, and globulin 2.0. PTH is 1947.8. Phosphorus is 5. ASSESSMENT AND PLAN: 1. Secondary hyperparathyroidism. Start calcitriol at 0.5 mcg tablet daily. 2. Hyperphosphatemia. Renvela 800 mg one tablet t.i.d. with meals. 3. End-stage renal disease, stable. We will continue current Saturday, Saturday, and Saturday hemodialysis. Fluid removal as tolerated. 4. Hyperkalemia, resolved. 5. Congestive heart failure, clinically much improved with dialysis. 6. Bipolar disorder. [facility] consult has been done. We will follow their recommendations. Agree with current management. Job ID: [id number]
[2019-12-29] MEDS: Calcitriol 0.25 MCG CAP PO SCH (11:21)
--- NOTE | 2019-12-29 14:21 | PDOC.HOSPP ---
- Subjective Encounter Date: 12/29/19 Encounter Time: 11:45 Subjective: Patient seen and examined for Hyperkalemia/Volume overload. No new complaints. No overnight events - Objective Vital Signs & Weight: Vital Signs (12 hours) Temp Pulse Pulse BP BP Pulse Ox 12/29/19 12:40 85 88 136/74 144/101 H 12/29/19 12:00 97.9 F 98 12/29/19 08:00 97.8 F 12/29/19 07:54 94 L Weight Admit Weight 122 lb Weight 105 lb 2.568 oz Most Recent Monitor Data Heart Rate from ECG 89 NIBP 138/74 NIBP BP-Mean 95 Respiration from ECG 20 SpO2 92 I&O: 12/28/19 12/29/19 12/30/19 06:59 06:59 06:59 Intake Total 160 970 720 Output Total 0 0 0 Balance 160 970 720 Result Diagrams: 12/29/19 03:12 12/29/19 03:12 EKG Reviewed by me: Yes (Tele SR) Hospitalist ROS - Review of Systems Respiratory: denies: cough, dry, shortness of breath, hemoptysis, SOB with excertion, pleuritic pain, sputum, wheezing, other Cardiovascular: denies: chest pain, palpitations, orthopnea, paroxysmal noc. dyspnea, edema, light headedness, other Gastrointestinal: denies: nausea, vomiting, abdominal pain, diarrhea, constipation, melena, hematochezia, other - Medication Medications: Active Medications Generic Name Dose Route Start Last Admin Trade Name Freq PRN Reason Stop Dose Admin Aspirin 81 mg 12/29/19 09:00 12/29/19 11:26 Ecotrin PO 81 mg DAILY JUDY Administration Calcitriol 0.5 mcg 12/29/19 09:00 12/29/19 11:21 Rocaltrol PO 0.5 mcg DAILY JUDY Administration Epoetin Ankti-epbx 7,500 unit 12/28/19 09:00 12/28/19 09:50 Retacrit SC 7,500 unit Q7D JUDY Administration Famotidine 20 mg 12/29/19 09:00 12/29/19 11:25 Pepcid PO 20 mg BID JUDY Administration Heparin Sodium (Porcine) 5,000 units 12/27/19 21:00 12/29/19 07:32 Heparin SC 5,000 units BID UJDY Administration Iron/Minerals/Multivitamins 1 tab 12/29/19 09:00 12/29/19 11:26 Theragran M PO 1 tab DAILY JUDY Administration Latanoprost 1 drop 12/28/19 21:00 12/28/19 22:49 Xalatan 0.005% Ophth Soln EA EYE 1 drp HS JUDY Administration Sevelamer Carbonate 2,400 mg 12/28/19 12:00 12/29/19 11:21 Renvela PO 2,400 mg TID-WM JUDY Administration - Exam General Appearance: NAD Neck: supple, no JVD Heart: RRR, no gallops, no rubs, normal peripheral pulses Respiratory: no wheezes, no rales, no ronchi, normal chest expansion Gastrointestinal: soft, non-tender, non-distended, normal bowel sounds Extremities: no cyanosis, no clubbing, no edema Neurological: no new deficit Psychiatric: normal affect, A&O x 3 Hosp A/P - Plan DVT proph w/SCDs Hyperkalemia/Volume overload/Metabolic acidosis due to missed dialysis s/p Emergent dialysis ESRD on dialysis Schizophrenia Elevated troponin prob due to ESRD/?Type 2 AR (POA) h/o TIA Abn LFTs - prob due to volume overload Diverticulosis Hiatal hernia PLAN: Await Tele bed Consult MR when medically cleared Dialysis per Dr Blake Verify home meds Add low dose ASA AM labs RUQ USG Cont other meds
[2019-12-29] MEDS: Latanoprost 0.005% Ophth Soln 2.5 ml Bottle EA EYE SCH (19:58)
[2019-12-30 03:48] LABS: #Eosinphils 0.2 thou/uL (0.0-0.7); #Lymphocytes 0.7 thou/uL (1.20-3.40); #Monocytes 0.4 thou/uL (0.11-0.59); #Neutrophils 3.1 thou/uL (1.40-6.50); %Basophils 0.1 % (0.0-1.0); %Eosinophils 4.8 % (0.0-10.0); %Monocytes 9.7 % (0.0-10.0); %Neutrophils 69.3 % (42.0-75.0); Hemoglobin 9.7 g/dL (12.0-16.0); Mean Corpuscular HGB CONC 32.9 g/dL (32.0-36.0); Mean Corpuscular Hemoglobin 32.9 pg (27.0-31.0); Mean Platelet Volume 8.6 fL (7.4-10.4); Platelet Count 156 thou/uL (130-400); RBC Distribution Width 15.3 % (11.5-14.5); Red Blood Cell (RBC) Count 2.96 mill/uL (4.20-5.40); White Blood Cell (WBC) Count 4.4 thou/uL (4.8-10.8)
[2019-12-30 04:09] LABS: ALT (SGPT) 600 U/L (8-55); AST (SGOT) 265 U/L (5-34); Albumin 3.2 g/dL (3.4-4.8); Alkaline Phosphatase 189 U/L (40-110); Anion Gap 14 mmol/L (10-20); BUN (Urea Nitrogen) 45 mg/dL (9.8-20.1); Bilirubin, Total 0.5 mg/dL (0.2-1.2); Calc. Creatinine Clearance 6 mL/min (70-130); Calcium 8.2 mg/dL (7.8-10.44); Carbon Dioxide 29 mmol/L (23-31); Chloride 98 mmol/L (98-107); Estimated GFR-MDRD 6; Glucose 120 mg/dL (83-110); Potassium 4.5 mmol/L (3.5-5.1); Protein, Total 5.2 g/dL (6.0-8.3); Sodium 136 mmol/L (136-145)
--- NOTE | 2019-12-30 07:25 | ULT ---
EXAM: US Gallbladder RUQ CLINICAL HISTORY: Abnormal liver function test. COMPARISON: None. FINDINGS: Pancreas: The head of pancreas has a normal echotexture. The remainder the pancreas is obscured by b owel gas. Liver:Hepatic parenchyma has a normal echotexture. No hepatic masses or intrahepatic biliary dilatati on. Right hepatic lobe: 18.6 cm Gallbladder: Contracted gallbladder. Gallbladder wall thickness is at the upper limits of normal marino uring 0.34 cm. No pericholecystic fluid. No evidence of cholelithiasis. Caro's sign:Negative Portal Vein: Patent. Appropriate directional flow Bile ducts: 0.49 cm common bile duct diameter Right kidney: No hydronephrosis. Right kidney measures 6.7 x 2.3 x 2.4 cm in length. Incidentals: There is a small right-sided pleural effusion. There is evidence of perihepatic fluid. IMPRESSION: 1. Normal hepatic parenchymal echotexture. 2. Small right-sided pleural effusion. Small amount of perihepatic fluid. 2. Contracted gallbladder without sonographic evidence of cholecystitis.
[2019-12-30] MEDS: Sevelamer Carbonate 800 MG TAB PO SCH ×3 (08:00→17:00)
[2019-12-30] MEDS: Heparin 5,000 UNITS/ML VIAL SC SCH ×2 (09:00→20:22)
[2019-12-30] MEDS: Calcitriol 0.25 MCG CAP PO SCH ×2 (09:00→11:53)
[2019-12-30] MEDS: Aspirin 81 mg Enteric Coated Tablet PO SCH ×2 (09:00→11:52)
[2019-12-30] MEDS: Multivitamin W/ Minerals 1 TAB PO SCH ×2 (09:00→11:56)
[2019-12-30] MEDS: Famotidine 20 MG TAB PO SCH (09:00)
--- NOTE | 2019-12-30 09:05 | PRG ---
DATE OF SERVICE: 12/30/2019 SUBJECTIVE: Ms. Little is a 74-year-old white female with ESRD and followed up by the [facility]al Service for her management of her ESRD. She was initially admitted due to CHF with hyperkalemia. She underwent emergent hemodialysis at that time. She is now currently undergoing hemodialysis and tolerating said treatment. The patient denies any chest pain or shortness of breath. In addition, due to the elevated LFT, an ultrasound of the abdomen was done, which showed normal hepatic parenchymal echotexture-incidental finding of right-sided pleural effusion. The patient voices no other complaints. OBJECTIVE: VITAL SIGNS: Blood pressure is 156/81, heart rate is 82, respiratory rate is 22, pulse ox is 94%, temperature 97.6. GENERAL: Awake, alert, comfortable, not in overt distress. SKIN: Adequate turgor. HEENT: Slightly pale conjunctivae. Anicteric sclerae. NECK: No neck mass. No carotid bruits. No JVD. CHEST: No deformities. LUNGS: Clear breath sounds. HEART: Normal sinus rhythm. No murmurs, gallops, or rubs. ABDOMEN: Globular. Soft, nontender. No masses. EXTREMITIES: No edema. No deformities. MEDICATIONS: Medications of December 30, 2019, were reviewed. LABORATORY DATA: Laboratories of December 30, 2019; white count 4.4, hemoglobin 9.7. Sodium 136, potassium 4.5, chloride 98, carbon dioxide 29, BUN 45, creatinine 6.77, glucose 120. AST is 265, ALT is 600, albumin is 3.2. ASSESSMENT AND PLAN: 1. End-stage renal disease, stable. We will continue current hemodialysis regimen on Saturday, Saturday, and Saturday. Fluid removal as tolerated. 2. Hyperkalemia/congestive heart failure, resolved with dialysis. 3. Anemia. Continue current Epogen regimen. 4. Elevated liver function tests-liver ultrasound was essentially negative. If the LFT is persistent, we may need to do some serological workup with this patient. 5. Bipolar disorder. MR consulted and they are to evaluate this patient. Job ID: [id number]
--- NOTE | 2019-12-30 11:04 | PDOC.FM ---
- Subjective Subjective: Care transferred to R primary team as she is a TAMP patient. Pt in HD and had 2706 mL withdrawn. Denies CP, SOB. States she will continue to do her recommended HD. At this time she denies any hallucinations. Pt eager to return home. - Objective MAR Reviewed: Yes Vital Signs & Weight: Vital Signs (12 hours) Temp Pulse Ox 12/30/19 07:00 96 12/30/19 04:00 97.6 F 12/30/19 00:00 98.0 F Weight Admit Weight 55.338 kg Weight 54.9 kg Most Recent Monitor Data Heart Rate from ECG 85 NIBP 156/81 NIBP BP-Mean 106 Respiration from ECG 17 SpO2 94 I&O: 12/29/19 12/30/19 12/31/19 06:59 06:59 06:59 Intake Total 970 1445 Output Total 0 100 Balance 970 1345 Result Diagrams: 12/30/19 03:34 12/30/19 03:34 Phys Exam - Physical Examination Constitutional: NAD HEENT: moist MMs scleral icterus Neck: no JVD, supple Respiratory: no wheezing, no rales, no rhonchi, clear to auscultation bilateral Cardiovascular: RRR, no rub sys murmur 33/6 Gastrointestinal: soft, non-tender, no distention, positive bowel sounds Musculoskeletal: no edema, pulses present Neurological: non-focal, moves all 4 limbs Psychiatric: A&O x 3 Skin: no rash, normal turgor Dx/Plan (1) ESRD (end stage renal disease) on dialysis Code(s): N18.6 - END STAGE RENAL DISEASE; Z99.2 - DEPENDENCE ON RENAL DIALYSIS Status: Chronic (2) HTN (hypertension) Code(s): I10 - ESSENTIAL (PRIMARY) HYPERTENSION Status: Chronic (3) Hyperglycemia Code(s): R73.9 - HYPERGLYCEMIA, UNSPECIFIED Status: Acute (4) Hyperkalemia Code(s): E87.5 - HYPERKALEMIA Status: Acute (5) Bipolar disorder Code(s): F31.9 - BIPOLAR DISORDER, UNSPECIFIED Status: Acute - Plan Plan: 74 y/o F admitted for hyperkalemia and need for emergent HD. 1. ESRD, non-compliant with HD, acute volume overload, improved. - Pt presented with SOB - has not been on HD due to delusional thoughts of "God telling her not to get HD". Pt agreeable to receiving HD at this point in time. - 2607 mL off in HD 12/29. - SOB improved. - Dr. Blake, [employer] consulted, appreciate recs: continue epogen weekly, HD M //, US neg for liver findings suggesting serologic workup, CHF and K improved with HD, [facility] consult for Bipolar with delusional thoughts. 2. Bipolar D/O with previous delusion thoughts interfering with medical care. - [facility] consulted for further recs, nursing staff staff to call - Given injectable antipsychotic medication 12/28. Pt has not been compliant with any medications or recommendations due to delusional thoughts. 3. Hyperkalemia, metabolic acidosis and uremia, resolved - s/p emergent HD, received sodium bicarb, calcium gluconate, insulin and d50 in ER. - CMP daily 4. Elevated Transaminases - Most likely 2/2 congestion from volume overload. - ordered INR and repeat CMP in AM. - If still elevated will further workup etiology. 5. Hx of TIA - continue home medications 6. Elevated BNP - CHF improved with HD 7. Elevated trop levels - in setting of ESRD, most likely due to volume overload and decreased renal clearance. - No CP 8. Hx of Breast CA - S/P lumpectomy and radiation treatment. code status: full code diet: Renal high protein dvt ppx: heparin dispo: stable, >2 day hx stay anticipated. pending [facility] consult. Addendum - Attending - Attending Attestation Date/Time: 12/30/19 0854 I personally evaluated the patient and discussed the management with Dr. Diggs. I agree with the History, Examination, Assessment and Plan documented above with any addition or exceptions noted below.
[2019-12-30 12:33] LABS: Prothrombin Time 12.7 SEC (12.0-14.7)
[2019-12-30] MEDS: Latanoprost 0.005% Ophth Soln 2.5 ml Bottle EA EYE SCH (20:22)
[2019-12-30] MEDS ORDERED: Famotidine 20 MG TAB PO SCH (21:00)
[2019-12-31 06:21] LABS: Prothrombin Time 13.4 SEC (12.0-14.7)
[2019-12-31 06:22] LABS: ALT (SGPT) 494 U/L (8-55); AST (SGOT) 182 U/L (5-34); Albumin 3.1 g/dL (3.4-4.8); Alkaline Phosphatase 202 U/L (40-110); Anion Gap 17 mmol/L (10-20); BUN (Urea Nitrogen) 32 mg/dL (9.8-20.1); Bilirubin, Total 0.5 mg/dL (0.2-1.2); Calc. Creatinine Clearance 9 mL/min (70-130); Calcium 8.1 mg/dL (7.8-10.44); Carbon Dioxide 22 mmol/L (23-31); Chloride 99 mmol/L (98-107); Estimated GFR-MDRD 8; Globulin 2.2 g/dL (2.4-3.5); Glucose 109 mg/dL (83-110); Potassium 4.2 mmol/L (3.5-5.1); Protein, Total 5.3 g/dL (6.0-8.3); Sodium 134 mmol/L (136-145)
--- NOTE | 2019-12-31 07:57 | PDOC.FM ---
- Subjective Subjective: Pt tearful this AM and does not wan to go to inpt psych facility. Denies any SOB, CP. No acute overnight events. Transferred to medical floor from CCU. - Objective MAR Reviewed: Yes Vital Signs & Weight: Vital Signs (12 hours) Temp Pulse Resp BP Pulse Ox 12/31/19 05:38 97.9 F 68 16 144/80 H 94 L 12/30/19 20:00 97.7 F 93 L Weight Admit Weight 55.338 kg Weight 54.9 kg Most Recent Monitor Data Heart Rate from ECG 77 NIBP 166/92 NIBP BP-Mean 116 Respiration from ECG 19 SpO2 95 I&O: 12/30/19 12/31/19 01/01/20 06:59 06:59 06:59 Intake Total 1445 630 Output Total 100 Balance 1345 630 Result Diagrams: 12/30/19 03:34 12/31/19 05:36 Phys Exam - Physical Examination Constitutional: NAD HEENT: moist MMs scleral icterus Neck: no nodes, supple, full ROM Respiratory: no wheezing, no rales, no rhonchi, clear to auscultation bilateral Cardiovascular: RRR, no rub sys murmur 2/6 Gastrointestinal: soft, non-tender, no distention, positive bowel sounds Musculoskeletal: no edema, pulses present Neurological: non-focal, moves all 4 limbs Deviation from normal: tearful affect Skin: no rash, cap refill <2 seconds Dx/Plan (1) ESRD (end stage renal disease) on dialysis Code(s): N18.6 - END STAGE RENAL DISEASE; Z99.2 - DEPENDENCE ON RENAL DIALYSIS Status: Chronic (2) HTN (hypertension) Code(s): I10 - ESSENTIAL (PRIMARY) HYPERTENSION Status: Chronic (3) Hyperglycemia Code(s): R73.9 - HYPERGLYCEMIA, UNSPECIFIED Status: Acute (4) Hyperkalemia Code(s): E87.5 - HYPERKALEMIA Status: Acute (5) Bipolar disorder Code(s): F31.9 - BIPOLAR DISORDER, UNSPECIFIED Status: Acute - Plan Plan: 74 y/o F admitted for hyperkalemia and need for emergent HD. 1. ESRD, non-compliant with HD, acute volume overload, improved. - Pt presented with SOB - has not been on HD due to delusional thoughts of "God telling her not to get HD". Pt agreeable to receiving HD at this point in time. - 2607 mL off in HD 12/29. - SOB improved. - Dr. Blake, Chief Of Anesthesiology consulted, appreciate recs: continue epogen weekly, HD M //, US neg for liver findings suggesting serologic workup, CHF and K improved with HD, [facility] consult for Bipolar with delusional thoughts. 2. Bipolar D/O with previous delusion thoughts interfering with medical care. - [facility] consulted: recommending inpt psych facility placement. awaiting bed. - Given injectable antipsychotic medication 12/28. Pt has not been compliant with any medications or recommendations due to delusional thoughts. 3. Hyperkalemia, metabolic acidosis and uremia, resolved - s/p emergent HD, received sodium bicarb, calcium gluconate, insulin and d50 in ER. - CMP daily 4. Elevated Transaminases, improving - Most likely 2/2 congestion from volume overload. - INR 1.0 and trend CMP in AM. AST 265, 182. ALT 600, 494. - If still elevated will further workup etiology. 5. Hx of TIA - continue home medications 6. Elevated BNP - CHF improved with HD 7. Elevated trop levels - in setting of ESRD, most likely due to volume overload and decreased renal clearance. - No CP 8. Hx of Breast CA - S/P lumpectomy and radiation treatment. code status: full code diet: Renal high protein dvt ppx: heparin dispo: stable, >2 day hx stay anticipated. Awaiting inpt psych facility placement, has been approved per [facility]. Addendum - Attending - Attending Attestation Date/Time: 12/31/19 2218 I personally evaluated the patient and discussed the management with Dr. Diggs. I agree with the History, Examination, Assessment and Plan documented above with any addition or exceptions noted below.
[2019-12-31] MEDS: Sevelamer Carbonate 800 MG TAB PO SCH ×2 (09:01→12:45)
[2019-12-31] MEDS: Calcitriol 0.25 MCG CAP PO SCH (09:08)
[2019-12-31] MEDS: Heparin 5,000 UNITS/ML VIAL SC SCH (09:08)
[2019-12-31] MEDS: Aspirin 81 mg Enteric Coated Tablet PO SCH (09:08)
[2019-12-31] MEDS: Multivitamin W/ Minerals 1 TAB PO SCH (09:08)
--- NOTE | 2019-12-31 10:42 | PRG ---
DATE OF SERVICE: 12/31/2019 SUBJECTIVE: Ms. Little is a 74-year-old white female with ESRD and was admitted for congestive heart failure and hyperkalemia. She has had exacerbations of her underlying psychiatric problem and has not been taking her antipsychotic medications. She has much improved. [facility] has evaluated the patient. Recommendation is to transfer her to an inpatient psychiatric hospital in [place]. She voices no other complaints today. OBJECTIVE: VITAL SIGNS: Blood pressure 153/74, heart rate 91, respiratory rate 20, temperature 98.2, and pulse ox 97%. GENERAL: Noted to be awake, alert, comfortable, not in distress. SKIN: Adequate turgor. HEENT: Pinkish conjunctivae. Anicteric sclerae. NECK: No neck mass. No carotid bruits. No JVD. CHEST: No deformities. LUNGS: Clear breath sounds. No wheezing. No crackles. HEART: Normal sinus rhythm. No murmurs, no gallops, no rubs. ABDOMEN: Globular, soft, nontender. No masses. EXTREMITIES: No edema. No deformities. MEDICATIONS: Medications of December 31, 2019, were reviewed. LABORATORY DATA: Laboratories of December 30, 2019, hemoglobin 9.7. On December 31, 2019; sodium 134, potassium 4.2, chloride 99, carbon dioxide 22, BUN 32, creatinine 5.03, AST 182, and ALT 494. ASSESSMENT AND PLAN: 1. End-stage renal disease, stable. We will continue current Saturday, Saturday, and Saturday hemodialysis. Fluid removal as tolerated. 2. Bipolar disorder-the patient from a psychiatric point of view is too unstable to go home. Recommendation by [facility] is to transfer the patient to an inpatient psychiatric hospital. 3. Acute hepatitis-LFTs slowly improving. This could be related to hepatic congestion from her congestive heart failure. Please note, liver ultrasound showed no masses. 4. Overall agree with current management. Job ID: [id number]
[2019-12-31 12:45] VITALS: BP 162/67; TEMP 98.1
[2019-12-31 14:22] VITALS: BMI 20.1
--- NOTE | 2019-12-31 14:55 | PQF ---
JACQUES LOWJESSICA *r [id number] CLINICAL DOCUMENTATION IMPROVEMENT CLARIFICATION FORM: ICD-10 Updated PLEASE DO AN ADDENDUM TO THE PROGRESS NOTE WITH ANY DOCUMENTATION UPDATES OR ADDITIONS AND CARRY THROUGH TO DC SUMMARY. THANK YOU. DATE: 12/31/2019 ATTN:DR. Jayde CARRASCO Please exercise your independent, professional judgment in responding to the clarification form. Clinical indicators are provided on the bottom of this form for your review. Please check appropriate box(s): CONGESTIVE HEART FAILURE: A. ACUITY Acute on Chronic , 2014 stress test with documented 66% EF, HFpEF. In addition, please specify: Present on Admission (POA): [* ] Yes For continuity of documentation, please document condition throughout progress notes and discharge summary. Thank You. CLINICAL INDICATORS - SIGNS / SYMPTOMS / LABS / RESULTS AND LOCATION IN EMR 12/26 BNP 93471.1 12/26 ED REPORT: PT PRESENTS AFTER MISSING 10 DAYS OF DIALYSIS. O2 SAT 91% RA > 96% 2L/NC// RESP -12/26 H&P (MOHAMED) THE PATIENT IS AWAKE, ALERT,, IN MODERATE DISTRESS. ASSESSMENT: FLUID OVERLOAD, ELEVATED BNP, ELEVATED TROPONIN, NO CHEST PAIN 12/27, 12/28 CONSULT (NICHOLSON) ASSESSMENT: 1). CONGESTIVE HEART FAILURE, CLINICALLY MUCH IMPROVED WITH DIALYSIS AND FLUID REMOVAL. 12/28 PN (LADHA) A/P: VOLUME OVERLOAD 12/29 PN (NICHOLSON) A/P: 2). HYPERKALEMIA/ CHF, RESOLVED WITH DIALYSIS RISK: ADVANCED AGE (74), HX ESRD, DX FLUID OVERLOAD (H&P/MOHAMED) 12/26) TREATMENTS: EMERGENT DIALYSIS (12/26) SUPPLEMENTAL OXYGEN (12/26-12/28) THANK YOU! MASHA (This form is maintained as a part of the permanent medical record) 2014 [employer]. All Rights Reserved ROBBY [email or web address] [phone] MTDD
--- NOTE | 2020-01-01 09:48 | DIS ---
DATE OF ADMISSION: 12/27/2019 DATE OF DISCHARGE: 12/31/2019 RESIDENT: Annmarie Diggs DO. ADMITTING ATTENDING: Vazquez Ramirez MD. DISCHARGE ATTENDING: Vazquez Ramirez MD. CONSULTS: Nephrology, Dr. Blake. [facility]. Pulmonology, Dr. Robles. Palliative Care, Abby Alvarado. PT, OT, and Case Management. PROCEDURES: Hemodialysis. DIAGNOSES: 1. End-stage renal disease, noncompliant with hemodialysis, acute volume overload. 2. Bipolar disorder with previous delusional thoughts, interfering with medical care. 3. Hyperkalemia, metabolic acidosis and uremia, resolved. 4. Elevated transaminases, improving. 5. History of transient ischemic attack. 6. Elevated BNP. 7. Elevated troponin level. 8. History of breast cancer. DISCHARGE MEDICATIONS: 1. Aspirin 81 mg p.o. daily. 2. Lipitor 20 mg p.o. daily. 3. Rocaltrol 0.5 mcg p.o. daily. 4. Pristiq 50 mg p.o. daily. 5. Retacrit 7500 units subcu weekly. 6. Prolixin 12.5 mg IM q.28 days. 7. Latanoprost eye drops one drop each eye daily. 8. Women's Multivitamin one pill p.o. daily. 9. Renvela 2400 mg p.o. t.i.d. with meals. HISTORY OF PRESENT ILLNESS/HOSPITAL COURSE: Ms. Little is a 74-year-old female with a past medical history of bipolar, schizophrenia and ESRD. She had been having delusional thoughts of God telling her not to have dialysis performed or take any of her medications. She had not received dialysis in over 10 days. She came into the emergency department very short of breath with very volume overload, metabolic acidosis, and uremic. She received emergent hemodialysis per Dr. Blake' s recommendations and improved very rapidly. Uremia, metabolic acidosis and volume overload now resolved. The patient was admitted to the ICU until stable and [facility] came and saw the patient, who recommended inpatient psych facility placement to treat her psychiatric problems as she was unable to make medical decisions for herself due to her delusional thought process and schizophrenia history. She will be transferred to [facility] in [place], [place] for inpatient psych. I spoke with a physician from [facility] on 12/30, who accepted the patient for transfer. The patient was originally admitted by the hospitalist admission team. It was found that she was a [facility] patient. Her care was transferred to on 12/31/2019. The patient had elevated transaminases upon admission, which down trended. This is most likely due to her volume overload with hepatic congestion. Her INR was normal and hepatitis B surface antigen was nonreactive. At this time, she will not need further workup if it continues to trend back down to normal in the setting of her receiving treatment for ESRD and not becoming volume overloaded. The patient was very tearful on day of discharge, not wanting to go to inpatient [facility], but I spoke with her and she did calm down. I also informed her son of the patient's transfer to [facility] in [place]. DISPOSITION: Stable upon discharge. DISCHARGE INSTRUCTIONS: Location: [facility] in [facility] facility. Diet: Renal diet, high-protein. Activity: As tolerated. Followup: Follow up with primary care in 10 days after discharge from inpatient psych facility and [facility]. Job ID: [id number] [facility]PITAL[facility]
--- NOTE | 2020-01-02 09:29 | EKG ---
Test Reason : Blood Pressure : / mmHG Vent. Rate : 087 BPM Atrial Rate : 087 BPM P-R Int : 170 ms QRS Dur : 158 ms QT Int : 412 ms P-R-T Axes : 054 -55 076 degrees QTc Int : 495 ms Sinus rhythm with Fusion complexes Right bundle branch block Left anterior fascicular block Bifascicular block Left ventricular hypertrophy with repolarization abnormality Abnormal ECG #1 Left atrial enlargement Peaked T waves, wide QRS Hypercalcemia Confirmed by JEB VILLARREAL, ISELA Hsu (9), supervising film or videotape editor NICK REEVES ([id number]) on 01/02/2020 9:28:59 AM Referred By: Confirmed By:ISELA RUSS MD
== END 2019-12-31 15:32 | disposition short-term general hospital (02) | DRG 640 ==
LOC: ERS 17:45 → CCU 19:22 → T4-A 12-30 21:53
PROVIDERS: ADMIT Internal Medicine; ATTEND Student in an Organized Health Care Education/Training Program
PROC: 5A1D70Z Performance of Urinary Filtration, Intermittent, Less than 6 Hours Per Day (ICD-10-PCS; principal; 2019-12-27)
DX: E87.79 Other fluid overload (principal); N18.6 End stage renal disease; I13.2 Hypertensive heart and chronic kidney disease with heart failure and with stage 5 chronic kidney disease, or end stage renal disease; B17.9 Acute viral hepatitis, unspecified; E87.5 Hyperkalemia; E87.2 Acidosis; F31.9 Bipolar disorder, unspecified; R74.0 Nonspecific elevation of levels of transaminase and lactic acid dehydrogenase [LDH]; R79.89 Other specified abnormal findings of blood chemistry; F20.9 Schizophrenia, unspecified; K57.90 Diverticulosis of intestine, part unspecified, without perforation or abscess without bleeding; K44.9 Diaphragmatic hernia without obstruction or gangrene; Z91.14 Patient's other noncompliance with medication regimen; Z85.3 Personal history of malignant neoplasm of breast; Z86.73 Personal history of transient ischemic attack (TIA), and cerebral infarction without residual deficits; Z91.15 Patient's noncompliance with renal dialysis; I50.9 Heart failure, unspecified
CPT/HCPCS: 36415; 71045; 76705; 80048; 80053; 82553; 83880; 83970; 84100; 84484; 85025; 85610; 87340; 90935; 93005; 94640; 96374; 96375; 99213; G0257; G0463; J1644; J1815; J2680; J7611; Q5105

== ENCOUNTER 2022-06-28 20:10 | Emergency (ER) | payer MEDICARE, OTHER ==
[2022-06-28] MEDS ORDERED: Acetaminophen 500 MG TAB ONE (20:42)
[2022-06-28 21:02] LABS: Hemoglobin 10.7 g/dL (12.0-16.0); Mean Corpuscular HGB CONC 32.6 g/dL (32.0-36.0); Mean Corpuscular Hemoglobin 34.6 pg (27.0-31.0); Mean Platelet Volume 8.2 fL (7.4-10.4); Platelet Count 159 thou/uL (130-400); RBC Distribution Width 13.7 % (11.5-14.5); White Blood Cell (WBC) Count 4.2 thou/uL (4.8-10.8)
[2022-06-28 21:18] LABS: Band 3 % (5-11); Eosinophils 8 % (0-10); Lymphocytes 11 % (21-51); MDiff Complete? YES; Monocytes 13 % (0-10); Neutrophil 65 % (42-75)
[2022-06-28 21:24] LABS: ALT (SGPT) 24 U/L (8-55); AST (SGOT) 24 U/L (5-34); Albumin 3.5 g/dL (3.4-4.8); Alkaline Phosphatase 174 U/L (40-110); Anion Gap 21 mmol/L (10-20); BUN (Urea Nitrogen) 44 mg/dL (9.8-20.1); Bilirubin, Total 0.9 mg/dL (0.2-1.2); Calc. Creatinine Clearance 0 mL/min (70-130); Calcium 9.5 mg/dL (7.8-10.44); Carbon Dioxide 26 mmol/L (23-31); Chloride 94 mmol/L (98-107); Estimated GFR 7; Globulin 2.8 g/dL (2.4-3.5); Glucose 89 mg/dL (83-110); Potassium 5.9 mmol/L (3.5-5.1); Protein, Total 6.3 g/dL (5.8-8.1); Sodium 135 mmol/L (136-145)
[2022-06-28] MEDS ORDERED: Calcium Gluc 4.6 MEQ/10 ML (100 MG/ML) ONE (23:46)
== END 2022-06-29 00:33 | disposition home or self-care (01) ==
LOC: ERS 20:10
DX: S00.01XA Abrasion of scalp, initial encounter (principal); E87.5 Hyperkalemia; I12.0 Hypertensive chronic kidney disease with stage 5 chronic kidney disease or end stage renal disease; N18.6 End stage renal disease; Z79.899 Other long term (current) drug therapy
CPT/HCPCS: 70450; 72125; 80053; 85025; 93005; 96374; 99284; J0610; 36415

== ENCOUNTER 2022-07-20 07:58 | Inpatient (IN) | payer OTHER, MEDICARE, MEDICAID ==
[2022-07-20 09:13] LABS: #Eosinphils 0.8 thou/uL (0.0-0.7); #Monocytes 0.6 thou/uL (0.11-0.59); #Neutrophils 5.4 thou/uL (1.40-6.50); %Basophils 0.3 % (0.0-1.0); %Eosinophils 9.6 % (0.0-10.0); %Lymphocytes 13.3 % (21.0-51.0); %Monocytes 8.1 % (0.0-10.0); %Neutrophils 68.7 % (42.0-75.0); Hemoglobin 10.5 g/dL (12.0-16.0); Mean Corpuscular HGB CONC 31.8 g/dL (32.0-36.0); Mean Corpuscular Hemoglobin 33.2 pg (27.0-31.0); Mean Platelet Volume 8.4 fL (7.4-10.4); Platelet Count 215 thou/uL (130-400); RBC Distribution Width 12.6 % (11.5-14.5); Red Blood Cell (RBC) Count 3.17 mill/uL (4.20-5.40); White Blood Cell (WBC) Count 7.8 thou/uL (4.8-10.8)
[2022-07-20 09:22] LABS: INR-International Normal Ratio 1.1; Prothrombin Time 14.1 sec (12.0-14.7)
[2022-07-20 09:23] LABS: PTT 26.8 sec (22.9-36.1)
[2022-07-20] MEDS ORDERED: Dextrose 50% Abboject 50 ML SYRINGE SLOW IVP PRN (09:25)
[2022-07-20] MEDS ORDERED: Dextrose 5% in Water 1,000 ML IV PRN (09:25)
[2022-07-20] MEDS ORDERED: Ondansetron PF 4 MG/2 ML Vial IVP PRN (09:25)
[2022-07-20] MEDS ORDERED: hydrALAZINE 20 MG/ML VIAL SLOW IVP PRN (09:25)
[2022-07-20] MEDS ORDERED: Morphine 4 MG/ML VIAL SLOW IVP PRN (09:25)
[2022-07-20 09:30] LABS: Phosphorus 5.7 mg/dL (2.3-4.7)
[2022-07-20] MEDS ORDERED: Cyclobenzaprine 10 MG TAB PO PRN (09:32)
[2022-07-20 09:34] LABS: ALT (SGPT) 7 U/L (8-55); AST (SGOT) 13 U/L (5-34); Albumin 3.8 g/dL (3.4-4.8); Alkaline Phosphatase 226 U/L (40-110); Anion Gap 17 mmol/L (10-20); BUN (Urea Nitrogen) 56 mg/dL (9.8-20.1); Bilirubin, Total 0.8 mg/dL (0.2-1.2); Calc. Creatinine Clearance 0 mL/min (70-130); Calcium 9.9 mg/dL (7.8-10.44); Carbon Dioxide 28 mmol/L (23-31); Chloride 98 mmol/L (98-107); Estimated GFR 5; Globulin 2.5 g/dL (2.4-3.5); Glucose 101 mg/dL (83-110); Protein, Total 6.3 g/dL (5.8-8.1); Sodium 137 mmol/L (136-145)
[2022-07-20 09:56] LABS: CKMB 0.7 ng/mL (0-6.6)
[2022-07-20 10:01] LABS: SARS-CoV-2 NAA Rapid Test DETECTED (NotDetected)
[2022-07-20] MEDS ORDERED: Fentanyl 100 MCG/2 ML VIAL ONE (10:05)
[2022-07-20] MEDS ORDERED: CEFAZOLIN 2 GM in Sodium Chloride 0.9% 100 ML IVPB SCH (10:15)
[2022-07-20] MEDS: Acetaminophen/Codeine 30-300mg Tablet PO PRN (12:31)
[2022-07-20] MEDS ORDERED: TETANUS, DIPHTHERIA TOX,ADULT (TDVAX) 0.5 ML VIAL IM ONE (14:00)
[2022-07-20 14:39] LABS: HBSAB Concentration Less than 8.00 mIU/mL; Hep B Core Total Ab Non-Reactive (NonReactive); Hep B Core Total Index 0.16 S/CO (0-0.79); Hep B Surf AB Non-Reactive (NonReactive); Hep B Surf Ag Non-Reactive S/CO (NonReactive); Hep C IgG Ab Non-Reactive (NonReactive); Hep C Index 0.13 S/CO (0-0.79)
[2022-07-20] MEDS ORDERED: Epoetin (ESRD) 20,000 UNITS/ML SC SCH (17:00)
[2022-07-20] MEDS ORDERED: EPOETIN ALFA-EPBX (ESRD) 3,000 UNIT/ML VIAL SC SCH (17:15)
[2022-07-20] MEDS ORDERED: EPOETIN ALFA-EPBX (ESRD) 4,000 UNIT/ML VIAL SC SCH (17:15)
[2022-07-20] MEDS ORDERED: Epoetin (ESRD) 10,000 UNITS/ML VIAL SC SCH (17:15)
[2022-07-20 18:52] VITALS: BMI 25.3
[2022-07-20] MEDS: Sevelamer Carbonate 800 MG TAB PO SCH (19:00)
[2022-07-20] MEDS ORDERED: Famotidine/PF 20 mg/2ml Vial SLOW IVP SCH (21:00)
[2022-07-20] MEDS: Senokot S 8.6-50 MG TAB PO SCH (21:10)
[2022-07-21] MEDS: Acetaminophen/Codeine 30-300mg Tablet PO PRN (05:16)
[2022-07-21 07:11] LABS: #Eosinphils 0.1 thou/uL (0.0-0.7); #Lymphocytes 0.8 thou/uL (1.20-3.40); #Monocytes 0.6 thou/uL (0.11-0.59); #Neutrophils 3.5 thou/uL (1.40-6.50); %Basophils 0.1 % (0.0-1.0); %Eosinophils 2.7 % (0.0-10.0); %Lymphocytes 16.5 % (21.0-51.0); %Monocytes 11.8 % (0.0-10.0); Hemoglobin 8.3 g/dL (12.0-16.0); Mean Corpuscular Hemoglobin 33.2 pg (27.0-31.0); Mean Platelet Volume 9.1 fL (7.4-10.4); Platelet Count 158 thou/uL (130-400); RBC Distribution Width 12.5 % (11.5-14.5); Red Blood Cell (RBC) Count 2.49 mill/uL (4.20-5.40); White Blood Cell (WBC) Count 5.1 thou/uL (4.8-10.8)
[2022-07-21 07:31] LABS: Anion Gap 13 mmol/L (10-20); BUN (Urea Nitrogen) 35 mg/dL (9.8-20.1); Calc. Creatinine Clearance 8 mL/min (70-130); Calcium 9.9 mg/dL (7.8-10.44); Carbon Dioxide 30 mmol/L (23-31); Chloride 98 mmol/L (98-107); Estimated GFR 7; Glucose 110 mg/dL (83-110); Magnesium 1.8 mg/dL (1.6-2.6); Phosphorus 5.6 mg/dL (2.3-4.7); Potassium 5.4 mmol/L (3.5-5.1); Sodium 136 mmol/L (136-145)
[2022-07-21] MEDS: Sevelamer Carbonate 800 MG TAB PO SCH ×3 (08:54→18:28)
[2022-07-21] MEDS: Polyethylene Glycol 3350 17 GM Packet PO SCH (08:55)
[2022-07-21] MEDS: Pantoprazole 40 MG VIAL IVP SCH (08:55)
[2022-07-21] MEDS: Senokot S 8.6-50 MG TAB PO SCH ×2 (08:55→20:40)
[2022-07-21 16:46] LABS: Anion Gap 10 mmol/L (10-20); BUN (Urea Nitrogen) 17 mg/dL (9.8-20.1); Calc. Creatinine Clearance 13 mL/min (70-130); Calcium 9.6 mg/dL (7.8-10.44); Carbon Dioxide 32 mmol/L (23-31); Chloride 98 mmol/L (98-107); Estimated GFR 12; Glucose 126 mg/dL (83-110); Sodium 136 mmol/L (136-145)
[2022-07-21] MEDS: Latanoprost 0.005% Ophth Soln 2.5 ml Bottle EA EYE SCH (20:39)
[2022-07-22] MEDS: Acetaminophen/Codeine 30-300mg Tablet PO PRN ×2 (05:45→18:09)
[2022-07-22 08:00] LABS: #Eosinphils 0.1 thou/uL (0.0-0.7); #Lymphocytes 0.7 thou/uL (1.20-3.40); #Monocytes 0.8 thou/uL (0.11-0.59); #Neutrophils 3.7 thou/uL (1.40-6.50); %Basophils 0.2 % (0.0-1.0); %Lymphocytes 12.7 % (21.0-51.0); %Monocytes 14.7 % (0.0-10.0); %Neutrophils 71.5 % (42.0-75.0); Hemoglobin 7.9 g/dL (12.0-16.0); Mean Corpuscular HGB CONC 32.8 g/dL (32.0-36.0); Mean Platelet Volume 8.8 fL (7.4-10.4); Platelet Count 119 thou/uL (130-400); RBC Distribution Width 12.4 % (11.5-14.5); Red Blood Cell (RBC) Count 2.34 mill/uL (4.20-5.40); White Blood Cell (WBC) Count 5.2 thou/uL (4.8-10.8)
[2022-07-22 08:06] LABS: Anion Gap 15 mmol/L (10-20); BUN (Urea Nitrogen) 25 mg/dL (9.8-20.1); Calc. Creatinine Clearance 9 mL/min (70-130); Calcium 10.1 mg/dL (7.8-10.44); Carbon Dioxide 29 mmol/L (23-31); Chloride 98 mmol/L (98-107); Estimated GFR 7; Glucose 115 mg/dL (83-110); Magnesium 1.8 mg/dL (1.6-2.6); Phosphorus 6.1 mg/dL (2.3-4.7); Sodium 137 mmol/L (136-145)
[2022-07-22] MEDS ORDERED: fentaNYL Citrate/PF 100 MCG/2 ML SYRINGE ONE (11:29)
[2022-07-22] MEDS ORDERED: CEFAZOLIN 2 GM VIAL ONE (11:30)
[2022-07-22] MEDS ORDERED: Sodium Chloride 0.9% 100 ML ONE (11:30)
[2022-07-22] MEDS ORDERED: Dexamethasone 20 MG/5 ML VIAL ONE (11:38)
[2022-07-22] MEDS ORDERED: PROPOFOL 200 MG/20 ML VIAL ONE (11:38)
[2022-07-22] MEDS ORDERED: Ondansetron PF 4 MG/2 ML Vial ONE (11:38)
[2022-07-22] MEDS ORDERED: Ondansetron HCl/PF 4 MG/2 ML Vial IVP PRN ×2 (12:49→12:50)
[2022-07-22] MEDS: Multivitamin W/ Minerals 1 TAB PO SCH (13:00)
[2022-07-22] MEDS: Sevelamer Carbonate 800 MG TAB PO SCH ×2 (13:00→18:09)
[2022-07-22] MEDS: Pantoprazole 40 MG VIAL IVP SCH (13:01)
[2022-07-22] MEDS: Polyethylene Glycol 3350 17 GM Packet PO SCH (13:01)
[2022-07-22] MEDS: Senokot S 8.6-50 MG TAB PO SCH ×2 (13:01→20:49)
[2022-07-22] MEDS: Venlafaxine HCl XR 75 MG CAP PO SCH (13:04)
[2022-07-22] MEDS: Latanoprost 0.005% Ophth Soln 2.5 ml Bottle EA EYE SCH (20:40)
[2022-07-22] MEDS: CEFAZOLIN 2 GM in Sodium Chloride 0.9% 100 ML IVPB SCH (20:40)
[2022-07-23] MEDS: CEFAZOLIN 2 GM in Sodium Chloride 0.9% 100 ML IVPB SCH (03:44)
[2022-07-23 06:13] LABS: #Lymphocytes 0.8 thou/uL (1.20-3.40); #Monocytes 0.8 thou/uL (0.11-0.59); #Neutrophils 4.3 thou/uL (1.40-6.50); %Eosinophils 0.4 % (0.0-10.0); %Lymphocytes 13.7 % (21.0-51.0); %Monocytes 13.6 % (0.0-10.0); %Neutrophils 72.3 % (42.0-75.0); Hemoglobin 9.2 g/dL (12.0-16.0); Mean Corpuscular HGB CONC 31.1 g/dL (32.0-36.0); Mean Corpuscular Hemoglobin 31.6 pg (27.0-31.0); Mean Platelet Volume 9.4 fL (7.4-10.4); Platelet Count 132 thou/uL (130-400); RBC Distribution Width 15.6 % (11.5-14.5)
[2022-07-23 06:31] LABS: Anion Gap 20 mmol/L (10-20); BUN (Urea Nitrogen) 46 mg/dL (9.8-20.1); Calc. Creatinine Clearance 6 mL/min (70-130); Calcium 9.5 mg/dL (7.8-10.44); Carbon Dioxide 23 mmol/L (23-31); Chloride 96 mmol/L (98-107); Estimated GFR 5; Glucose 108 mg/dL (83-110); Phosphorus 7.7 mg/dL (2.3-4.7); Potassium 5.8 mmol/L (3.5-5.1); Sodium 133 mmol/L (136-145)
[2022-07-23] MEDS: Sevelamer Carbonate 800 MG TAB PO SCH ×3 (08:22→17:33)
[2022-07-23] MEDS: Heparin 5,000 UNITS/ML VIAL SC SCH ×3 (08:23→20:29)
[2022-07-23] MEDS: Venlafaxine HCl XR 75 MG CAP PO SCH (08:23)
[2022-07-23] MEDS: Multivitamin W/ Minerals 1 TAB PO SCH (08:23)
[2022-07-23] MEDS: Pantoprazole 40 MG VIAL IVP SCH (08:23)
[2022-07-23] MEDS: Senokot S 8.6-50 MG TAB PO SCH ×2 (08:23→20:28)
[2022-07-23] MEDS: Polyethylene Glycol 3350 17 GM Packet PO SCH (08:24)
[2022-07-23] MEDS ORDERED: Acetaminophen/Codeine 30-300mg Tablet PO PRN (13:52)
[2022-07-23] MEDS: Acetaminophen/Codeine 30-300mg Tablet PO SCH ×2 (15:00→20:30)
[2022-07-23] MEDS: Latanoprost 0.005% Ophth Soln 2.5 ml Bottle EA EYE SCH (20:29)
[2022-07-24] MEDS: Acetaminophen/Codeine 30-300mg Tablet PO SCH ×3 (02:42→13:13)
[2022-07-24 06:44] LABS: #Eosinphils 0.1 thou/uL (0.0-0.7); #Lymphocytes 0.7 thou/uL (1.20-3.40); #Monocytes 0.6 thou/uL (0.11-0.59); #Neutrophils 3.3 thou/uL (1.40-6.50); %Eosinophils 3.1 % (0.0-10.0); %Lymphocytes 14.3 % (21.0-51.0); %Monocytes 12.6 % (0.0-10.0); Mean Corpuscular HGB CONC 30.8 g/dL (32.0-36.0); Mean Corpuscular Hemoglobin 31.5 pg (27.0-31.0); Mean Platelet Volume 9.4 fL (7.4-10.4); Platelet Count 145 thou/uL (130-400); RBC Distribution Width 15.2 % (11.5-14.5); Red Blood Cell (RBC) Count 2.53 mill/uL (4.20-5.40); White Blood Cell (WBC) Count 4.7 thou/uL (4.8-10.8)
[2022-07-24 06:59] LABS: Anion Gap 13 mmol/L (10-20); BUN (Urea Nitrogen) 30 mg/dL (9.8-20.1); Calc. Creatinine Clearance 11 mL/min (70-130); Calcium 9.8 mg/dL (7.8-10.44); Carbon Dioxide 29 mmol/L (23-31); Chloride 97 mmol/L (98-107); Estimated GFR 9; Glucose 97 mg/dL (83-110); Potassium 4.8 mmol/L (3.5-5.1); Sodium 134 mmol/L (136-145)
[2022-07-24 07:20] LABS: Phosphorus 5.6 mg/dL (2.3-4.7)
[2022-07-24] MEDS ORDERED: Apixaban 2.5 MG TAB PO SCH (09:00)
[2022-07-24] MEDS: Sevelamer Carbonate 800 MG TAB PO SCH ×3 (09:21→18:10)
[2022-07-24] MEDS: Senokot S 8.6-50 MG TAB PO SCH (09:23)
[2022-07-24] MEDS: Polyethylene Glycol 3350 17 GM Packet PO SCH (09:23)
[2022-07-24] MEDS: Multivitamin W/ Minerals 1 TAB PO SCH (09:23)
[2022-07-24] MEDS: Venlafaxine HCl XR 75 MG CAP PO SCH (09:23)
[2022-07-24 16:20] VITALS: BP 102/59; TEMP 98.4
== END 2022-07-24 19:50 | DRG 480 ==
LOC: ERS 07:58 → SURG B 11:26
PROVIDERS: ADMIT Surgery; ATTEND Surgery
PROC: 5A1D70Z Performance of Urinary Filtration, Intermittent, Less than 6 Hours Per Day (ICD-10-PCS; 2022-07-20)
PROC: 5A1D70Z Performance of Urinary Filtration, Intermittent, Less than 6 Hours Per Day (ICD-10-PCS; 2022-07-21)
PROC: 0QS704Z Reposition Left Upper Femur with Internal Fixation Device, Open Approach (ICD-10-PCS; principal; 2022-07-22)
PROC: 30233N1 Transfusion of Nonautologous Red Blood Cells into Peripheral Vein, Percutaneous Approach (ICD-10-PCS; 2022-07-22)
PROC: 5A1D70Z Performance of Urinary Filtration, Intermittent, Less than 6 Hours Per Day (ICD-10-PCS; 2022-07-23)
DX: S72.142A Displaced intertrochanteric fracture of left femur, initial encounter for closed fracture (principal); N18.6 End stage renal disease; U07.1 COVID-19; I12.0 Hypertensive chronic kidney disease with stage 5 chronic kidney disease or end stage renal disease; F31.9 Bipolar disorder, unspecified; E87.5 Hyperkalemia; W19.XXXA Unspecified fall, initial encounter; E83.39 Other disorders of phosphorus metabolism; D64.89 Other specified anemias; I48.0 Paroxysmal atrial fibrillation; M85.80 Other specified disorders of bone density and structure, unspecified site; D63.1 Anemia in chronic kidney disease; Z86.73 Personal history of transient ischemic attack (TIA), and cerebral infarction without residual deficits; Z98.890 Other specified postprocedural states; Y92.89 Other specified places as the place of occurrence of the external cause; Z99.2 Dependence on renal dialysis; Z98.51 Tubal ligation status
CPT/HCPCS: 36415; 36430; 71045; 72170; 76000; 80048; 80053; 82553; 83735; 84100; 84484; 85025; 85610; 85730; 86704; 86850; 86900; 86901; 87340; 90935; 93005; 96374; C1713; C9113; G0257; G0390; J0690; J1100; J1644; J2270; J2405; J2704; J3010; J3490; P9016; U0002

== ENCOUNTER 2022-07-28 18:08 | Inpatient (IN) | payer MEDICARE, MEDICAID ==
[~2022-07-28 18:08] MED LIST changes: -Heparin 10,000 UNITS/ 10 ML VIAL ONE; +Iopamidol-370 76% 500 ML 1 ML ONE
[2022-07-28 18:48] LABS: #Eosinphils 0.1 thou/uL (0.0-0.7); #Lymphocytes 1.8 thou/uL (1.20-3.40); #Monocytes 0.6 thou/uL (0.11-0.59); #Neutrophils 4.4 thou/uL (1.40-6.50); %Basophils 0.3 % (0.0-1.0); %Eosinophils 1.6 % (0.0-10.0); %Neutrophils 64.2 % (42.0-75.0); Hemoglobin 6.8 g/dL (12.0-16.0); Mean Corpuscular HGB CONC 31.8 g/dL (32.0-36.0); Mean Corpuscular Hemoglobin 32.1 pg (27.0-31.0); Mean Platelet Volume 9.2 fL (7.4-10.4); Platelet Count 353 thou/uL (130-400); RBC Distribution Width 14.4 % (11.5-14.5); Red Blood Cell (RBC) Count 2.11 mill/uL (4.20-5.40); White Blood Cell (WBC) Count 6.9 thou/uL (4.8-10.8)
[2022-07-28 19:00] LABS: ALT (SGPT) Less than 7 U/L (8-55); AST (SGOT) 28 U/L (5-34); Albumin 2.9 g/dL (3.4-4.8); Alkaline Phosphatase 145 U/L (40-110); Anion Gap 25 mmol/L (10-20); BUN (Urea Nitrogen) 54 mg/dL (9.8-20.1); Bilirubin, Total 1.2 mg/dL (0.2-1.2); Calc. Creatinine Clearance 0 mL/min (70-130); Calcium 9.8 mg/dL (7.8-10.44); Carbon Dioxide 19 mmol/L (23-31); Chloride 93 mmol/L (98-107); Estimated GFR 6; Globulin 2.6 g/dL (2.4-3.5); Glucose 146 mg/dL (83-110); PTT 79.2 sec (22.9-36.1); Potassium 5.3 mmol/L (3.5-5.1); Protein, Total 5.5 g/dL (5.8-8.1); Prothrombin Time 98.2 sec (12.0-14.7); Sodium 132 mmol/L (136-145)
[2022-07-28 19:01] LABS: INR-International Normal Ratio 12.4
[2022-07-28] MEDS ORDERED: HUMAN PROTHROMBIN COMPLX IV SCH (19:45)
[2022-07-28] MEDS ORDERED: [UNRECOGNIZED DRUG - OTHER] IV SCH (19:45)
[2022-07-28] MEDS ORDERED: HUM PROTHROMBIN CPLX IV SCH (19:45)
[2022-07-28 20:54] LABS: SARS-CoV-2 NAA Rapid Test DETECTED (NotDetected)
[2022-07-28] MEDS ORDERED: Ondansetron PF 4 MG/2 ML Vial IVP PRN (21:54)
[2022-07-28] MEDS ORDERED: Acetaminophen 325 MG TAB PO PRN (21:54)
[2022-07-28] MEDS ORDERED: Pantoprazole 40 MG VIAL ONE (22:26)
[2022-07-28 22:29] LABS: Troponin I 0.069 ng/mL (< 0.028)
[2022-07-28] MEDS ORDERED: Phytonadione 10 MG/ML AMP SLOW IVP SCH (22:30)
[2022-07-28 23:06] LABS: Hemoglobin 9.8 g/dL (12.0-16.0)
[2022-07-29 01:37] LABS: Troponin I 0.105 ng/mL (< 0.028)
[2022-07-29 07:21] LABS: Hemoglobin 8.6 g/dL (12.0-16.0)
[2022-07-29 07:31] LABS: Anion Gap 15 mmol/L (10-20); BUN (Urea Nitrogen) 66 mg/dL (9.8-20.1); Calc. Creatinine Clearance 6 mL/min (70-130); Calcium 9.5 mg/dL (7.8-10.44); Carbon Dioxide 25 mmol/L (23-31); Chloride 96 mmol/L (98-107); Estimated GFR 5; Glucose 86 mg/dL (83-110); Potassium 5.2 mmol/L (3.5-5.1); Sodium 131 mmol/L (136-145)
[2022-07-29 07:33] LABS: PTT 44.5 sec (22.9-36.1)
[2022-07-29 07:44] LABS: INR-International Normal Ratio 1.5
[2022-07-29 07:55] LABS: #Eosinphils 0.1 thou/uL (0.0-0.7); #Lymphocytes 0.8 thou/uL (1.20-3.40); #Monocytes 0.7 thou/uL (0.11-0.59); #Neutrophils 3.8 thou/uL (1.40-6.50); %Basophils 0.6 % (0.0-1.0); %Eosinophils 1.5 % (0.0-10.0); %Lymphocytes 15.6 % (21.0-51.0); %Monocytes 12.1 % (0.0-10.0); %Neutrophils 70.2 % (42.0-75.0); Mean Corpuscular HGB CONC 32.7 g/dL (32.0-36.0); Mean Corpuscular Hemoglobin 29.9 pg (27.0-31.0); Mean Corpuscular Volume 91.4 fL (78.0-98.0); Platelet Count 192 thou/uL (130-400); RBC Distribution Width 17.1 % (11.5-14.5); Red Blood Cell (RBC) Count 2.84 mill/uL (4.20-5.40); White Blood Cell (WBC) Count 5.4 thou/uL (4.8-10.8)
[2022-07-29] MEDS ORDERED: Polyethylene Glycol 3350 17 GM Packet PO PRN (08:09)
[2022-07-29] MEDS: Docusate 100 MG CAP PO SCH (09:04)
[2022-07-29] MEDS: Pantoprazole 40 MG VIAL IVP SCH (11:48)
[2022-07-29] MEDS ORDERED: Polyethylene Glycol 3350 17 GM Packet PO SCH (15:00)
[2022-07-29 15:32] LABS: Hemoglobin 8.1 g/dL (12.0-16.0)
[2022-07-29] MEDS: metroNIDAZOLE 500 MG in Premix Bag 1 BAG IVPB SCH (16:23)
[2022-07-29] MEDS: Cefepime 0.5 GM, Admixture Fee 1 EACH in Sodium Chloride 0.9% 100 ML IVPB SCH (16:23)
[2022-07-29] MEDS: Doxycycline 100 MG in Sodium Chloride 0.9% 100 ML IVPB SCH (18:04)
[2022-07-29 23:02] LABS: Hemoglobin 7.4 g/dL (12.0-16.0)
[2022-07-30] MEDS: Pantoprazole 40 MG VIAL IVP SCH ×3 (01:44→20:33)
[2022-07-30] MEDS: Polyethylene Glycol 3350 17 GM Packet PO SCH ×3 (01:44→20:33)
[2022-07-30] MEDS: Docusate 100 MG CAP PO SCH ×3 (01:44→20:33)
[2022-07-30 03:53] LABS: #Eosinphils 0.3 thou/uL (0.0-0.7); #Lymphocytes 0.5 thou/uL (1.20-3.40); #Monocytes 0.5 thou/uL (0.11-0.59); #Neutrophils 2.5 thou/uL (1.40-6.50); %Basophils 0.2 % (0.0-1.0); %Eosinophils 6.7 % (0.0-10.0); %Lymphocytes 12.6 % (21.0-51.0); %Monocytes 13.6 % (0.0-10.0); %Neutrophils 66.9 % (42.0-75.0); Hemoglobin 7.3 g/dL (12.0-16.0); Mean Corpuscular HGB CONC 34.1 g/dL (32.0-36.0); Mean Corpuscular Hemoglobin 31.8 pg (27.0-31.0); Mean Corpuscular Volume 93.1 fL (78.0-98.0); Mean Platelet Volume 8.7 fL (7.4-10.4); Platelet Count 187 thou/uL (130-400); RBC Distribution Width 16.6 % (11.5-14.5); Red Blood Cell (RBC) Count 2.29 mill/uL (4.20-5.40); White Blood Cell (WBC) Count 3.8 thou/uL (4.8-10.8)
[2022-07-30 04:01] LABS: INR-International Normal Ratio 1.1; PTT 39.8 sec (22.9-36.1); Prothrombin Time 14.5 sec (12.0-14.7)
[2022-07-30 04:10] LABS: Anion Gap 12 mmol/L (10-20); BUN (Urea Nitrogen) 28 mg/dL (9.8-20.1); Calc. Creatinine Clearance 11 mL/min (70-130); Calcium 8.9 mg/dL (7.8-10.44); Carbon Dioxide 27 mmol/L (23-31); Chloride 98 mmol/L (98-107); Estimated GFR 11; Glucose 113 mg/dL (83-110); Potassium 3.8 mmol/L (3.5-5.1); Sodium 133 mmol/L (136-145)
[2022-07-30 04:17] LABS: Troponin I 0.086 ng/mL (< 0.028)
[2022-07-30] MEDS: metroNIDAZOLE 500 MG in Premix Bag 1 BAG IVPB SCH ×2 (05:26→17:06)
[2022-07-30] MEDS: Doxycycline 100 MG in Sodium Chloride 0.9% 100 ML IVPB SCH ×2 (05:26→18:00)
[2022-07-30 07:17] LABS: Hemoglobin 7.5 g/dL (12.0-16.0)
[2022-07-30] MEDS ORDERED: Epoetin (ESRD) 20,000 UNITS/ML SC SCH (09:30)
[2022-07-30] MEDS ORDERED: Epoetin (ESRD) 10,000 UNITS/ML VIAL SC SCH (12:00)
[2022-07-30] MEDS: Cefepime 0.5 GM, Admixture Fee 1 EACH in Sodium Chloride 0.9% 100 ML IVPB SCH (15:25)
[2022-07-31 03:53] LABS: #Eosinphils 0.3 thou/uL (0.0-0.7); #Lymphocytes 0.7 thou/uL (1.20-3.40); #Monocytes 0.5 thou/uL (0.11-0.59); #Neutrophils 2.2 thou/uL (1.40-6.50); %Basophils 0.8 % (0.0-1.0); %Lymphocytes 17.3 % (21.0-51.0); %Monocytes 13.8 % (0.0-10.0); %Neutrophils 59.1 % (42.0-75.0); Hemoglobin 7.7 g/dL (12.0-16.0); Mean Corpuscular HGB CONC 33.2 g/dL (32.0-36.0); Mean Corpuscular Hemoglobin 31.1 pg (27.0-31.0); Mean Corpuscular Volume 93.6 fL (78.0-98.0); Mean Platelet Volume 8.2 fL (7.4-10.4); Platelet Count 205 thou/uL (130-400); RBC Distribution Width 16.4 % (11.5-14.5); Red Blood Cell (RBC) Count 2.49 mill/uL (4.20-5.40); White Blood Cell (WBC) Count 3.8 thou/uL (4.8-10.8)
[2022-07-31 04:04] LABS: INR-International Normal Ratio 1.2; PTT 39.5 sec (22.9-36.1)
[2022-07-31 04:13] LABS: ALT (SGPT) Less than 7 U/L (8-55); AST (SGOT) 19 U/L (5-34); Albumin 2.6 g/dL (3.4-4.8); Alkaline Phosphatase 124 U/L (40-110); Anion Gap 16 mmol/L (10-20); BUN (Urea Nitrogen) 39 mg/dL (9.8-20.1); Bilirubin, Total 0.7 mg/dL (0.2-1.2); Calc. Creatinine Clearance 7 mL/min (70-130); Calcium 9.4 mg/dL (7.8-10.44); Carbon Dioxide 24 mmol/L (23-31); Chloride 100 mmol/L (98-107); Estimated GFR 7; Globulin 1.9 g/dL (2.4-3.5); Glucose 87 mg/dL (83-110); Potassium 4.5 mmol/L (3.5-5.1); Protein, Total 4.5 g/dL (5.8-8.1); Sodium 135 mmol/L (136-145)
[2022-07-31] MEDS: metroNIDAZOLE 500 MG in Premix Bag 1 BAG IVPB SCH ×2 (05:05→16:34)
[2022-07-31 05:11] VITALS: BMI 21.5
[2022-07-31] MEDS: Doxycycline 100 MG in Sodium Chloride 0.9% 100 ML IVPB SCH ×2 (06:07→16:34)
[2022-07-31] MEDS: Pantoprazole 40 MG VIAL IVP SCH ×2 (07:32→20:17)
[2022-07-31] MEDS: Docusate 100 MG CAP PO SCH (07:33)
[2022-07-31] MEDS: Polyethylene Glycol 3350 17 GM Packet PO SCH ×2 (07:33→20:17)
[2022-07-31] MEDS: Cefepime 0.5 GM, Admixture Fee 1 EACH in Sodium Chloride 0.9% 100 ML IVPB SCH (16:34)
[2022-08-01 04:17] LABS: ALT (SGPT) Less than 7 U/L (8-55); AST (SGOT) 24 U/L (5-34); Albumin 2.7 g/dL (3.4-4.8); Alkaline Phosphatase 136 U/L (40-110); Anion Gap 14 mmol/L (10-20); BUN (Urea Nitrogen) 30 mg/dL (9.8-20.1); Bilirubin, Total 0.8 mg/dL (0.2-1.2); Calc. Creatinine Clearance 9 mL/min (70-130); Calcium 9.6 mg/dL (7.8-10.44); Carbon Dioxide 25 mmol/L (23-31); Chloride 100 mmol/L (98-107); Estimated GFR 8; Globulin 2.3 g/dL (2.4-3.5); Glucose 96 mg/dL (83-110); Potassium 4.1 mmol/L (3.5-5.1); Sodium 135 mmol/L (136-145)
[2022-08-01 04:26] LABS: #Eosinphils 0.4 thou/uL (0.0-0.7); #Lymphocytes 0.8 thou/uL (1.20-3.40); #Monocytes 0.5 thou/uL (0.11-0.59); #Neutrophils 2.6 thou/uL (1.40-6.50); %Basophils 0.8 % (0.0-1.0); %Eosinophils 8.5 % (0.0-10.0); %Lymphocytes 17.8 % (21.0-51.0); %Monocytes 12.2 % (0.0-10.0); %Neutrophils 60.6 % (42.0-75.0); Hemoglobin 8.5 g/dL (12.0-16.0); Mean Corpuscular HGB CONC 32.2 g/dL (32.0-36.0); Mean Corpuscular Hemoglobin 30.5 pg (27.0-31.0); Mean Corpuscular Volume 94.9 fL (78.0-98.0); Mean Platelet Volume 8.6 fL (7.4-10.4); Platelet Count 213 thou/uL (130-400); RBC Distribution Width 16.2 % (11.5-14.5); Red Blood Cell (RBC) Count 2.77 mill/uL (4.20-5.40); White Blood Cell (WBC) Count 4.3 thou/uL (4.8-10.8)
[2022-08-01] MEDS: Doxycycline 100 MG in Sodium Chloride 0.9% 100 ML IVPB SCH (05:37)
[2022-08-01] MEDS: Polyethylene Glycol 3350 17 GM Packet PO SCH ×2 (07:35→21:56)
[2022-08-01] MEDS: Pantoprazole 40 MG VIAL IVP SCH ×2 (07:35→21:55)
[2022-08-01] MEDS ORDERED: Fentanyl 100 MCG/2 ML VIAL ONE (08:45)
[2022-08-01] MEDS ORDERED: Midazolam HCl 2 mg/2 ml Vial ONE (08:46)
[2022-08-01] MEDS ORDERED: Iopamidol 300 61% 100 ML VIAL FS ONE (10:39)
[2022-08-01] MEDS ORDERED: Doxycycline 100 MG CAP PO SCH (18:00)
[2022-08-01] MEDS ORDERED: Cephalexin 250 MG CAP PO SCH (22:00)
[2022-08-02 07:03] LABS: #Eosinphils 0.4 thou/uL (0.0-0.7); #Lymphocytes 0.8 thou/uL (1.20-3.40); #Monocytes 0.6 thou/uL (0.11-0.59); #Neutrophils 2.7 thou/uL (1.40-6.50); %Basophils 0.1 % (0.0-1.0); %Eosinophils 8.8 % (0.0-10.0); %Lymphocytes 18.3 % (21.0-51.0); %Monocytes 12.9 % (0.0-10.0); %Neutrophils 59.9 % (42.0-75.0); Hemoglobin 7.7 g/dL (12.0-16.0); Mean Corpuscular HGB CONC 32.1 g/dL (32.0-36.0); Mean Corpuscular Volume 96.5 fL (78.0-98.0); Mean Platelet Volume 8.2 fL (7.4-10.4); Platelet Count 236 thou/uL (130-400); RBC Distribution Width 17.1 % (11.5-14.5); Red Blood Cell (RBC) Count 2.48 mill/uL (4.20-5.40); White Blood Cell (WBC) Count 4.5 thou/uL (4.8-10.8)
[2022-08-02 07:23] LABS: Iron 56 ug/dL (50-170); Iron Binding Capacity, Total 155 mcg/dL (265-497)
[2022-08-02 07:30] LABS: Anion Gap 14 mmol/L (10-20); BUN (Urea Nitrogen) 40 mg/dL (9.8-20.1); Calc. Creatinine Clearance 6 mL/min (70-130); Calcium 9.6 mg/dL (7.8-10.44); Carbon Dioxide 26 mmol/L (23-31); Chloride 100 mmol/L (98-107); Estimated GFR 6; Glucose 92 mg/dL (83-110); Iron 57 ug/dL (50-170); Potassium 4.5 mmol/L (3.5-5.1); Sodium 135 mmol/L (136-145)
[2022-08-02] MEDS: Pantoprazole 40 MG VIAL IVP SCH (08:01)
[2022-08-02] MEDS: Polyethylene Glycol 3350 17 GM Packet PO SCH (08:01)
[2022-08-02] MEDS ORDERED: Cephalexin 250 MG CAP PO SCH (09:00)
[2022-08-02] MEDS ORDERED: Warfarin Sodium 2.5 MG TAB PO SCH (11:15)
[2022-08-02 15:22] VITALS: BP 133/63; TEMP 98
[2022-08-03] MEDS ORDERED: Warfarin Sodium 2.5 MG TAB PO SCH (17:00)
== END 2022-08-02 15:26 | disposition home or self-care (01) | DRG 981 ==
LOC: ERS 18:08 → IMCU/EMU 21:50 → T4-B 08-01 13:10
PROVIDERS: ADMIT Hospitalist; ATTEND Hospitalist
PROC: 30233N1 Transfusion of Nonautologous Red Blood Cells into Peripheral Vein, Percutaneous Approach (ICD-10-PCS; 2022-07-28)
PROC: 5A1D70Z Performance of Urinary Filtration, Intermittent, Less than 6 Hours Per Day (ICD-10-PCS; 2022-07-29)
PROC: 05763ZZ Dilation of Left Subclavian Vein, Percutaneous Approach (ICD-10-PCS; principal; 2022-08-01)
DX: D68.32 Hemorrhagic disorder due to extrinsic circulating anticoagulants (principal); N18.6 End stage renal disease; U07.1 COVID-19; T82.858A Stenosis of other vascular prosthetic devices, implants and grafts, initial encounter; K92.0 Hematemesis; D62 Acute posthemorrhagic anemia; L03.114 Cellulitis of left upper limb; I12.0 Hypertensive chronic kidney disease with stage 5 chronic kidney disease or end stage renal disease; T82.856A Stenosis of peripheral vascular stent, initial encounter; I48.91 Unspecified atrial fibrillation; E78.5 Hyperlipidemia, unspecified; D63.1 Anemia in chronic kidney disease; H40.9 Unspecified glaucoma; F31.9 Bipolar disorder, unspecified; E87.5 Hyperkalemia; K56.41 Fecal impaction; Z86.73 Personal history of transient ischemic attack (TIA), and cerebral infarction without residual deficits; Z85.3 Personal history of malignant neoplasm of breast; Z79.01 Long term (current) use of anticoagulants; Z79.82 Long term (current) use of aspirin; Z79.899 Other long term (current) drug therapy; Z98.890 Other specified postprocedural states; Z99.2 Dependence on renal dialysis; T45.515A Adverse effect of anticoagulants, initial encounter
CPT/HCPCS: 36415; 36430; 36901; 36905; 71275; 74177; 80048; 80053; 82728; 83540; 83550; 84484; 85025; 85046; 85610; 85730; 86850; 86900; 86901; 87040; 90935; 93005; 94760; 96374; 96375; C1725; C9113; G0257; J0692; J2250; J3010; J3430; J3490; J7168; P9016; Q4081; Q9967; U0002

== ENCOUNTER 2022-09-16 13:18 | Inpatient (IN) | payer MEDICARE, MEDICAID ==
[2022-09-16] MEDS ORDERED: Nitroglycerin 2% Ointment 1 INCH/1 GM Packet ONE (14:10)
[2022-09-16] MEDS ORDERED: hydrALAZINE 20 MG/ML VIAL ONE (14:12)
[2022-09-16 14:42] LABS: #Eosinphils 0.4 thou/uL (0.0-0.7); #Lymphocytes 0.8 thou/uL (1.20-3.40); #Monocytes 0.4 thou/uL (0.11-0.59); #Neutrophils 4.1 thou/uL (1.40-6.50); %Basophils 0.8 % (0.0-1.0); %Eosinophils 6.6 % (0.0-10.0); %Lymphocytes 13.3 % (21.0-51.0); %Monocytes 6.4 % (0.0-10.0); Hemoglobin 8.3 g/dL (12.0-16.0); Mean Corpuscular HGB CONC 31.4 g/dL (32.0-36.0); Mean Corpuscular Hemoglobin 34.1 pg (27.0-31.0); Mean Platelet Volume 7.8 fL (7.4-10.4); Platelet Count 309 10x3/uL (130-400); RBC Distribution Width 17.1 % (11.5-14.5); Red Blood Cell (RBC) Count 2.43 mill/uL (4.20-5.40); White Blood Cell (WBC) Count 5.7 10x3/uL (4.8-10.8)
[2022-09-16 14:43] LABS: Bilirubin Negative (Negative); Blood, Urine Small (Negative); Glucose, Urine (Dipstick) 100 mg/dL (Negative); Ketone, Urine Negative (Negative); Leukocyte Small (Negative); Nitrite Negative (Negative); Protein, Urine (Dipstick) 100 mg/dL (Neg-Trace); Specific Gravity, Urine 1.015 (1.005-1.030); Urobilinogen 0.2 mg/dL (Less than 2); pH, Urine 8.5 (5.0-9.0)
[2022-09-16 14:47] LABS: Clarity Clear (Clear)
[2022-09-16 14:50] LABS: SARS-CoV-2 NAA Rapid Test Not Detected (NotDetected)
[2022-09-16 14:51] LABS: Bacteria/HPF Rare-Few HPF (None Seen); RBC/HPF 0-3 HPF (0-3); Renal Epithelial 0-3 HPF (None Seen); Squamous Epithelial 0-3 HPF (0-3); Transitional Epithelial 0-3 HPF (None Seen)
[2022-09-16 14:56] LABS: ALT (SGPT) 23 U/L (8-55); AST (SGOT) 21 U/L (5-34); Albumin 3.7 g/dL (3.4-4.8); Alkaline Phosphatase 227 U/L (40-110); Anion Gap 20 mmol/L (10-20); BUN (Urea Nitrogen) 61 mg/dL (9.8-20.1); Bilirubin, Total 0.5 mg/dL (0.2-1.2); CK (CPK) 91 U/L (29-168); Calc. Creatinine Clearance 0 mL/min (70-130); Calcium 8.5 mg/dL (7.8-10.44); Carbon Dioxide 28 mmol/L (23-31); Chloride 98 mmol/L (98-107); Estimated GFR 6; Glucose 156 mg/dL (83-110); Lipase 83 U/L (8-78); Magnesium 2.1 mg/dL (1.6-2.6); Protein, Total 6.7 g/dL (5.8-8.1); Sodium 140 mmol/L (136-145)
[2022-09-16 15:02] LABS: Hypochromia SLIGHT = 6-15 cells (100X) (0-5/hpf); MDiff Complete? YES; Macrocytosis SLIGHT = 6-15 cells (100X) (0-5/hpf); Ovalocytes SLIGHT = 2-5 cells (100X) (0-1/hpf); Platelet Morphology Comment Appears Adequate; Polychromasia SLIGHT = 2-3 cells (100X) (0-2/hpf)
[2022-09-16 15:04] LABS: INR-International Normal Ratio 1.2; PTT 28.7 sec (22.9-36.1); Prothrombin Time 15.6 sec (12.0-14.7)
[2022-09-16 15:05] LABS: D-Dimer Test 1.75 *mcg/mL (0.27-0.43)
[2022-09-16 15:18] LABS: CKMB 1.5 ng/mL (0-6.6)
[2022-09-16] MEDS ORDERED: Calcium Chloride 1 GM/10 ML Abboject SYRINGE ONE (15:21)
[2022-09-16] MEDS ORDERED: Insulin Regular 300 UNITS/3 ML VIAL ONE (15:23)
[2022-09-16 17:22] LABS: Lactic Acid 1.6 mmol/L (0.5-2.2)
[2022-09-16] MEDS ORDERED: Acetaminophen 325 MG TAB PO PRN (17:27)
[2022-09-16] MEDS ORDERED: cloNIDine 0.1 MG TAB PO PRN (17:30)
[2022-09-16] MEDS ORDERED: Cyclobenzaprine 10 MG TAB PO PRN (17:30)
[2022-09-16] MEDS ORDERED: Calcium Carbonate 500 MG TAB PO PRN (17:30)
[2022-09-16] MEDS ORDERED: Warfarin Sodium 2.5 MG TAB PO SCH (18:15)
[2022-09-16] MEDS ORDERED: Heparin 5,000 UNITS/ML VIAL SC SCH (21:00)
[2022-09-16] MEDS ORDERED: Atorvastatin Calcium 20 MG TAB PO SCH (21:00)
[2022-09-16] MEDS ORDERED: Famotidine 20 MG TAB PO SCH (21:00)
[2022-09-16] MEDS ORDERED: Famotidine 20 MG TAB ONE (21:05)
[2022-09-16 21:59] LABS: Anion Gap 12 mmol/L (10-20); BUN (Urea Nitrogen) 39 mg/dL (9.8-20.1); Calc. Creatinine Clearance 0 mL/min (70-130); Calcium 8.6 mg/dL (7.8-10.44); Carbon Dioxide 29 mmol/L (23-31); Chloride 103 mmol/L (98-107); Estimated GFR 10; Glucose 114 mg/dL (83-110); Potassium 4.2 mmol/L (3.5-5.1); Sodium 140 mmol/L (136-145)
[2022-09-16 22:34] LABS: HBSAB Concentration Less than 8.00 mIU/mL; HBSAg Index 0.26 S/CO (0-0.99); Hep B Core Total Ab Non-Reactive (NonReactive); Hep B Core Total Index 0.15 S/CO (0-0.79); Hep B Surf AB Non-Reactive (NonReactive); Hep B Surf Ag Non-Reactive S/CO (NonReactive); Hep C IgG Ab Non-Reactive (NonReactive); Hep C Index 0.08 S/CO (0-0.79)
[2022-09-17 05:25] LABS: #Eosinphils 0.4 thou/uL (0.0-0.7); #Lymphocytes 0.9 thou/uL (1.20-3.40); #Monocytes 0.6 thou/uL (0.11-0.59); #Neutrophils 3.5 thou/uL (1.40-6.50); %Basophils 0.4 % (0.0-1.0); %Lymphocytes 16.1 % (21.0-51.0); %Monocytes 10.3 % (0.0-10.0); %Neutrophils 65.3 % (42.0-75.0); Hemoglobin 7.8 g/dL (12.0-16.0); Mean Corpuscular HGB CONC 30.6 g/dL (32.0-36.0); Mean Corpuscular Hemoglobin 32.9 pg (27.0-31.0); Mean Platelet Volume 7.6 fL (7.4-10.4); Platelet Count 301 10x3/uL (130-400); RBC Distribution Width 17.5 % (11.5-14.5); Red Blood Cell (RBC) Count 2.37 mill/uL (4.20-5.40); White Blood Cell (WBC) Count 5.4 10x3/uL (4.8-10.8)
[2022-09-17 06:00] LABS: Anion Gap 13 mmol/L (10-20); BUN (Urea Nitrogen) 34 mg/dL (9.8-20.1); Calc. Creatinine Clearance 9 mL/min (70-130); Calcium 8.3 mg/dL (7.8-10.44); Carbon Dioxide 31 mmol/L (23-31); Chloride 101 mmol/L (98-107); Estimated GFR 9; Glucose 87 mg/dL (83-110); Sodium 140 mmol/L (136-145)
[2022-09-17] MEDS: Sevelamer Carbonate 800 MG TAB PO SCH ×3 (08:07→18:18)
[2022-09-17] MEDS ORDERED: Calcitriol 0.25 MCG CAP PO SCH (09:00)
[2022-09-17] MEDS ORDERED: Venlafaxine HCl XR 75 MG CAP PO SCH (09:00)
[2022-09-17] MEDS ORDERED: Folic Acid/Vit B Comp W-C PO SCH (09:00)
[2022-09-17] MEDS ORDERED: EPOETIN ALFA-EPBX (ESRD) 10,000 UNIT/ML VIAL SC SCH (10:00)
[2022-09-17 11:29] VITALS: TEMP 98.1
[2022-09-17] MEDS ORDERED: Warfarin Sodium 2.5 MG TAB PO SCH (17:00)
[2022-09-17 18:35] VITALS: BP 174/74
[2022-09-18] MEDS ORDERED: Famotidine 20 MG TAB PO SCH (21:00)
== END 2022-09-17 19:10 | disposition home or self-care (01) | DRG 640 ==
LOC: ERS 13:18 → ERHOLD 15:57 → 2SW 23:07
PROVIDERS: ADMIT Internal Medicine; ATTEND Internal Medicine
PROC: 5A1D70Z Performance of Urinary Filtration, Intermittent, Less than 6 Hours Per Day (ICD-10-PCS; principal; 2022-09-16)
DX: E87.5 Hyperkalemia (principal); N18.6 End stage renal disease; I13.2 Hypertensive heart and chronic kidney disease with heart failure and with stage 5 chronic kidney disease, or end stage renal disease; I48.91 Unspecified atrial fibrillation; D63.1 Anemia in chronic kidney disease; F31.9 Bipolar disorder, unspecified; E86.9 Volume depletion, unspecified; E78.5 Hyperlipidemia, unspecified; I50.9 Heart failure, unspecified; Z20.822 Contact with and (suspected) exposure to COVID-19; Z79.01 Long term (current) use of anticoagulants; Z98.890 Other specified postprocedural states; Z88.6 Allergy status to analgesic agent; Z79.899 Other long term (current) drug therapy; Z99.2 Dependence on renal dialysis
CPT/HCPCS: 36415; 51701; 71045; 80048; 80053; 81003; 81015; 82550; 82553; 83605; 83690; 83735; 83880; 84132; 84484; 85025; 85379; 85610; 85730; 86704; 87340; 90935; 93005; 94644; 96374; 96375; G0257; J0360; J1815; J7611; Q5105

== ENCOUNTER 2022-11-26 19:56 | Inpatient (IN) | payer MEDICARE, MEDICAID ==
[2022-11-26 20:25] LABS: #Basophils 0.1 thou/uL (0.0-0.2); #Eosinphils 0.2 thou/uL (0.0-0.7); #Lymphocytes 0.8 thou/uL (1.20-3.40); #Monocytes 0.4 thou/uL (0.11-0.59); #Neutrophils 1.7 thou/uL (1.40-6.50); %Basophils 1.7 % (0.0-1.0); %Eosinophils 4.9 % (0.0-10.0); %Monocytes 12.1 % (0.0-10.0); %Neutrophils 56.2 % (42.0-75.0); Hemoglobin 12.8 g/dL (12.0-16.0); Mean Corpuscular HGB CONC 31.9 g/dL (32.0-36.0); Mean Corpuscular Hemoglobin 31.8 pg (27.0-31.0); Mean Corpuscular Volume 99.5 fl (78.0-98.0); Mean Platelet Volume 8.5 fL (7.4-10.4); Platelet Count 195 10x3/uL (130-400); RBC Distribution Width 14.6 % (11.5-14.5); Red Blood Cell (RBC) Count 4.04 mill/uL (4.20-5.40); White Blood Cell (WBC) Count 3.1 10x3/uL (4.8-10.8)
[2022-11-26 20:39] LABS: INR-International Normal Ratio 1.1; PTT 28.7 sec (22.9-36.1); Prothrombin Time 15.1 sec (12.0-14.7)
[2022-11-26 20:44] LABS: ALT (SGPT) Less than 7 U/L (8-55); AST (SGOT) 10 U/L (5-34); Albumin 3.7 g/dL (3.4-4.8); Alkaline Phosphatase 147 U/L (40-110); Anion Gap 20 mmol/L (10-20); BUN (Urea Nitrogen) 26 mg/dL (9.8-20.1); Bilirubin, Total 0.9 mg/dL (0.2-1.2); Calc. Creatinine Clearance 0 mL/min (70-130); Calcium 11.6 mg/dL (7.8-10.44); Carbon Dioxide 27 mmol/L (23-31); Chloride 99 mmol/L (98-107); Estimated GFR 8; Globulin 2.9 g/dL (2.4-3.5); Glucose 152 mg/dL (83-110); Potassium 4.3 mmol/L (3.5-5.1); Protein, Total 6.6 g/dL (5.8-8.1); Sodium 142 mmol/L (136-145)
[2022-11-26 20:45] LABS: Acetaminophen Less than 10.0 mcg/mL (10.0-30.0); Alcohol Less than 10 mg/dL (Less than 10); Salicylate Less than 8.0 mg/dL (15.0-30.0)
[2022-11-26 21:05] LABS: CKMB 2.1 ng/mL (0-6.6)
[2022-11-26 21:05] LABS: Actual Bicarbonate (HCO3v) 32 mEq/L (22-28); Base Excess 8.7 mEq/L (-2.0 to +3.0); Calcium, Ionized (venous) 1.16 mmol/L (1.16-1.32); Chloride (VBG) 98 mmol/L (98-106); Potassium (VBG) 4.52 mmol/L (3.70-5.30); Sodium 141.4 mmol/L (133-146); pH (venous) 7.52 (7.32-7.43)
[2022-11-26 22:00] LABS: Bacteria/HPF None Seen HPF (None Seen); Bilirubin Negative (Negative); Blood, Urine Negative (Negative); Clarity Turbid (Clear); Glucose, Urine (Dipstick) 150 mg/dL (Negative); Ketone, Urine Negative (Negative); Leukocyte 250 Leu/uL (Negative); Nitrite Negative (Negative); Protein, Urine (Dipstick) 300 mg/dL (Neg-Trace); RBC/HPF None Seen HPF (0-3); Specific Gravity, Urine 1.009 (1.002-1.036); Urobilinogen Normal mg/dL (Less than 2); pH, Urine 8.5 (5.0-9.0)
[2022-11-26 22:03] LABS: Amphetamine Not Detected (NotDetected); Barbiturates Screen Not Detected (NotDetected); Benzodiazepine Screen Not Detected (NotDetected); Cocaine Metabolite Screen Not Detected (NotDetected); Methadone Not Detected (NotDetected); Methamphetamine Not Detected (NotDetected); Opiate Screen Not Detected (NotDetected); Oxycodone Screen Not Detected (NotDetected); Phencyclidine (PCP) Not Detected (NotDetected); THC/Cannabinoid Screen Not Detected (NotDetected); Tricyclic Screen Not Detected (NotDetected)
[2022-11-26] MEDS ORDERED: Acetaminophen 325 MG TAB PO PRN (23:28)
[2022-11-26 23:31] VITALS: BMI 18.8
[2022-11-26] MEDS ORDERED: NIFEdipine XL 30 MG TAB PO SCH (23:59)
[2022-11-26] MEDS ORDERED: hydrALAZINE 25 MG TAB PO SCH (23:59)
[2022-11-27 00:04] LABS: Phosphorus 4.8 mg/dL (2.3-4.7)
[2022-11-27] MEDS ORDERED: levETIRAcetam 500 MG/5 ML VIAL SLOW IVP SCH (00:30)
[2022-11-27] MEDS ORDERED: levETIRAcetam 500 MG/5 ML VIAL ONE (00:31)
[2022-11-27] MEDS ORDERED: hydrALAZINE 25 MG TAB ONE (00:31)
[2022-11-27] MEDS ORDERED: Lorazepam 2 MG/ML VIAL SLOW IVP PRN (00:31)
[2022-11-27 00:42] LABS: Troponin I 0.115 ng/mL (< 0.028)
[2022-11-27 01:08] LABS: SARS-CoV-2 NAA Rapid Test Not Detected (NotDetected)
[2022-11-27 04:35] LABS: #Eosinphils 0.1 thou/uL (0.0-0.7); #Lymphocytes 0.9 thou/uL (1.20-3.40); #Monocytes 0.5 thou/uL (0.11-0.59); #Neutrophils 2.2 thou/uL (1.40-6.50); %Basophils 0.5 % (0.0-1.0); %Eosinophils 2.8 % (0.0-10.0); %Lymphocytes 23.9 % (21.0-51.0); %Monocytes 13.3 % (0.0-10.0); %Neutrophils 59.5 % (42.0-75.0); Hemoglobin 12.3 g/dL (12.0-16.0); Mean Corpuscular HGB CONC 32.5 g/dL (32.0-36.0); Mean Corpuscular Volume 98.5 fl (78.0-98.0); Mean Platelet Volume 8.7 fL (7.4-10.4); Platelet Count 178 10x3/uL (130-400); RBC Distribution Width 14.8 % (11.5-14.5); Red Blood Cell (RBC) Count 3.84 mill/uL (4.20-5.40); White Blood Cell (WBC) Count 3.7 10x3/uL (4.8-10.8)
[2022-11-27 04:50] LABS: ALT (SGPT) Less than 7 U/L (8-55); AST (SGOT) 16 U/L (5-34); Albumin 3.4 g/dL (3.4-4.8); Alkaline Phosphatase 132 U/L (40-110); Anion Gap 17 mmol/L (10-20); BUN (Urea Nitrogen) 31 mg/dL (9.8-20.1); Bilirubin, Total 0.8 mg/dL (0.2-1.2); Calc. Creatinine Clearance 7 mL/min (70-130); Calcium 9.9 mg/dL (7.8-10.44); Carbon Dioxide 29 mmol/L (23-31); Chloride 100 mmol/L (98-107); Estimated GFR 7; Globulin 2.9 g/dL (2.4-3.5); Glucose 90 mg/dL (83-110); Potassium 5.6 mmol/L (3.5-5.1); Protein, Total 6.3 g/dL (5.8-8.1); Sodium 140 mmol/L (136-145)
[2022-11-27] MEDS: Levothyroxine Sodium 25 MCG TAB PO SCH (06:15)
[2022-11-27] MEDS: Sevelamer 2.4 GM PACKET PO SCH ×3 (08:05→18:37)
[2022-11-27] MEDS ORDERED: FLU VACC QS2022-23(65YR UP)/PF 240 MCG/0.7 ML SYRINGE IM ONE (09:00)
[2022-11-27] MEDS: Rosuvastatin 10 MG TAB PO SCH (09:42)
[2022-11-27] MEDS: hydrALAZINE 25 MG TAB PO SCH ×3 (09:42→20:47)
[2022-11-27] MEDS: Metoprolol Tartrate 25 MG TAB PO SCH ×2 (09:42→20:46)
[2022-11-27] MEDS: levETIRAcetam 500 MG TAB PO SCH (09:42)
[2022-11-27] MEDS ORDERED: Metoprolol Tartrate 25 MG TAB ONE (09:51)
[2022-11-27] MEDS: Mirtazapine 15 MG Soltab PO SCH (20:47)
[2022-11-27] MEDS ORDERED: NIFEdipine XL 30 MG TAB PO SCH (21:00)
[2022-11-28 06:01] LABS: #Eosinphils 0.4 thou/uL (0.0-0.7); #Monocytes 0.5 thou/uL (0.11-0.59); %Basophils 0.7 % (0.0-1.0); %Eosinophils 10.9 % (0.0-10.0); %Lymphocytes 25.2 % (21.0-51.0); %Monocytes 13.3 % (0.0-10.0); %Neutrophils 49.8 % (42.0-75.0); Hemoglobin 12.8 g/dL (12.0-16.0); Mean Corpuscular HGB CONC 31.9 g/dL (32.0-36.0); Mean Corpuscular Hemoglobin 31.4 pg (27.0-31.0); Mean Corpuscular Volume 98.5 fl (78.0-98.0); Mean Platelet Volume 8.5 fL (7.4-10.4); Platelet Count 182 10x3/uL (130-400); RBC Distribution Width 14.9 % (11.5-14.5); Red Blood Cell (RBC) Count 4.06 mill/uL (4.20-5.40)
[2022-11-28] MEDS: Levothyroxine Sodium 25 MCG TAB PO SCH (06:15)
[2022-11-28 06:19] LABS: ALT (SGPT) Less than 7 U/L (8-55); AST (SGOT) 7 U/L (5-34); Albumin 3.3 g/dL (3.4-4.8); Alkaline Phosphatase 137 U/L (40-110); Anion Gap 17 mmol/L (10-20); BUN (Urea Nitrogen) 54 mg/dL (9.8-20.1); Bilirubin, Total 0.8 mg/dL (0.2-1.2); Calc. Creatinine Clearance 5 mL/min (70-130); Calcium 9.8 mg/dL (7.8-10.44); Carbon Dioxide 31 mmol/L (23-31); Chloride 98 mmol/L (98-107); Estimated GFR 5; Globulin 2.6 g/dL (2.4-3.5); Glucose 92 mg/dL (83-110); Potassium 5.4 mmol/L (3.5-5.1); Protein, Total 5.9 g/dL (5.8-8.1); Sodium 141 mmol/L (136-145)
[2022-11-28] MEDS: Sevelamer 2.4 GM PACKET PO SCH ×3 (08:26→16:29)
[2022-11-28] MEDS: hydrALAZINE 25 MG TAB PO SCH ×3 (08:26→20:03)
[2022-11-28] MEDS: Metoprolol Tartrate 25 MG TAB PO SCH ×2 (08:26→20:03)
[2022-11-28] MEDS: Apixaban 2.5 MG TAB PO SCH ×2 (08:26→20:03)
[2022-11-28] MEDS: Rosuvastatin 10 MG TAB PO SCH (08:26)
[2022-11-28] MEDS: levETIRAcetam 500 MG TAB PO SCH (08:26)
[2022-11-28] MEDS ORDERED: Heparin 10,000 UNITS/ 10 ML VIAL ONE (08:47)
[2022-11-28 08:50] LABS: HBSAB Concentration Less than 8.00 mIU/mL; HBSAg Index 0.31 S/CO (0-0.99); Hep B Core Total Ab Non-Reactive (NonReactive); Hep B Surf AB Non-Reactive (NonReactive); Hep B Surf Ag Non-Reactive S/CO (NonReactive); Hep C IgG Ab Non-Reactive (NonReactive); Hep C Index 0.11 S/CO (0-0.79)
[2022-11-28] MEDS ORDERED: NIFEdipine XL 30 MG TAB PO SCH (10:40)
[2022-11-28] MEDS: NIFEdipine XL 60 MG TAB PO SCH (14:07)
[2022-11-28] MEDS: Mirtazapine 15 MG Soltab PO SCH (20:03)
[2022-11-29] MEDS: Levothyroxine Sodium 25 MCG TAB PO SCH (05:43)
[2022-11-29 05:44] LABS: #Eosinphils 0.3 thou/uL (0.0-0.7); #Lymphocytes 1.3 thou/uL (1.20-3.40); #Monocytes 0.7 thou/uL (0.11-0.59); #Neutrophils 2.9 thou/uL (1.40-6.50); %Basophils 0.8 % (0.0-1.0); %Eosinophils 6.5 % (0.0-10.0); %Lymphocytes 24.3 % (21.0-51.0); %Monocytes 13.4 % (0.0-10.0); %Neutrophils 54.9 % (42.0-75.0); Hemoglobin 13.3 g/dL (12.0-16.0); Mean Corpuscular HGB CONC 31.7 g/dL (32.0-36.0); Mean Corpuscular Hemoglobin 31.4 pg (27.0-31.0); Mean Corpuscular Volume 99.3 fl (78.0-98.0); Mean Platelet Volume 8.6 fL (7.4-10.4); Platelet Count 234 10x3/uL (130-400); Red Blood Cell (RBC) Count 4.24 mill/uL (4.20-5.40); White Blood Cell (WBC) Count 5.2 10x3/uL (4.8-10.8)
[2022-11-29 06:06] LABS: ALT (SGPT) Less than 7 U/L (8-55); AST (SGOT) 6 U/L (5-34); Albumin 3.4 g/dL (3.4-4.8); Alkaline Phosphatase 137 U/L (40-110); Anion Gap 18 mmol/L (10-20); BUN (Urea Nitrogen) 54 mg/dL (9.8-20.1); Bilirubin, Total 0.8 mg/dL (0.2-1.2); Calc. Creatinine Clearance 6 mL/min (70-130); Calcium 10.3 mg/dL (7.8-10.44); Carbon Dioxide 26 mmol/L (23-31); Chloride 100 mmol/L (98-107); Estimated GFR 7; Globulin 2.7 g/dL (2.4-3.5); Glucose 91 mg/dL (83-110); Protein, Total 6.1 g/dL (5.8-8.1); Sodium 138 mmol/L (136-145)
[2022-11-29] MEDS: Metoprolol Tartrate 25 MG TAB PO SCH (08:39)
[2022-11-29] MEDS: hydrALAZINE 25 MG TAB PO SCH ×2 (08:39→14:32)
[2022-11-29] MEDS: Apixaban 2.5 MG TAB PO SCH (08:40)
[2022-11-29] MEDS: Sevelamer 2.4 GM PACKET PO SCH ×3 (08:40→17:50)
[2022-11-29] MEDS: levETIRAcetam 500 MG TAB PO SCH (08:40)
[2022-11-29] MEDS ORDERED: Insulin Regular 300 UNITS/3 ML VIAL IVP SCH (08:45)
[2022-11-29] MEDS ORDERED: Dextrose 50% Abboject 50 ML SYRINGE SLOW IVP SCH (08:45)
[2022-11-29] MEDS ORDERED: Heparin 10,000 UNITS/ 10 ML VIAL ONE (08:54)
[2022-11-29] MEDS ORDERED: Rosuvastatin 20 MG TAB PO SCH (09:00)
[2022-11-29] MEDS: NIFEdipine XL 60 MG TAB PO SCH (11:41)
[2022-11-29 17:22] VITALS: BP 117/72; TEMP 98.8
== END 2022-11-29 20:15 | DRG 100 ==
LOC: ERS 19:56 → ERHOLD 22:30 → OBSVTOIN 11-27 15:52 → NEURO 11-27 16:39
PROVIDERS: ADMIT Family Medicine; ATTEND Family Medicine
PROC: 5A1D70Z Performance of Urinary Filtration, Intermittent, Less than 6 Hours Per Day (ICD-10-PCS; principal; 2022-11-27)
DX: G40.909 Epilepsy, unspecified, not intractable, without status epilepticus (principal); G93.41 Metabolic encephalopathy; N18.6 End stage renal disease; J96.00 Acute respiratory failure, unspecified whether with hypoxia or hypercapnia; E87.20 Acidosis, unspecified; E87.3 Alkalosis; R64 Cachexia; Z68.1 Body mass index [BMI] 19.9 or less, adult; E03.9 Hypothyroidism, unspecified; F20.9 Schizophrenia, unspecified; I16.0 Hypertensive urgency; F31.9 Bipolar disorder, unspecified; I48.0 Paroxysmal atrial fibrillation; Z20.822 Contact with and (suspected) exposure to COVID-19; R77.8 Other specified abnormalities of plasma proteins; I35.0 Nonrheumatic aortic (valve) stenosis; E87.5 Hyperkalemia; R53.81 Other malaise; D63.1 Anemia in chronic kidney disease; H40.9 Unspecified glaucoma; E78.5 Hyperlipidemia, unspecified; M85.80 Other specified disorders of bone density and structure, unspecified site; Z85.3 Personal history of malignant neoplasm of breast; Z99.2 Dependence on renal dialysis; Z98.890 Other specified postprocedural states; Z79.899 Other long term (current) drug therapy; Z86.73 Personal history of transient ischemic attack (TIA), and cerebral infarction without residual deficits; Z79.890 Hormone replacement therapy; M81.0 Age-related osteoporosis without current pathological fracture
CPT/HCPCS: 36415; 36416; 51701; 70450; 70551; 71045; 80053; 80306; 80307; 81003; 81015; 82140; 82553; 82805; 83605; 83735; 84100; 84146; 84436; 84443; 84484; 85025; 85610; 85730; 86704; 90935; 93005; 95712; 95816; 95819; 95957; 96374; G0257; G0378; J1644; J1815; J1953; J7999

== ENCOUNTER 2023-02-07 21:55 | Emergency (ER) | payer MEDICARE, MEDICAID ==
[2023-02-07 23:00] LABS: #Eosinphils 0.5 thou/uL (0.0-0.7); #Lymphocytes 1.3 thou/uL (1.20-3.40); #Monocytes 0.6 thou/uL (0.11-0.59); #Neutrophils 2.3 thou/uL (1.40-6.50); %Basophils 0.7 % (0.0-1.0); %Eosinophils 10.4 % (0.0-10.0); %Lymphocytes 26.8 % (21.0-51.0); %Monocytes 13.2 % (0.0-10.0); %Neutrophils 48.8 % (42.0-75.0); Hemoglobin 12.9 g/dL (12.0-16.0); Mean Corpuscular HGB CONC 32.7 g/dL (32.0-36.0); Mean Corpuscular Hemoglobin 32.9 pg (27.0-31.0); Mean Platelet Volume 8.7 fL (7.4-10.4); Platelet Count 178 10x3/uL (130-400); RBC Distribution Width 15.2 % (11.5-14.5); Red Blood Cell (RBC) Count 3.91 mill/uL (4.20-5.40); White Blood Cell (WBC) Count 4.8 10x3/uL (4.8-10.8)
[2023-02-07 23:21] LABS: ALT (SGPT) Less than 7 U/L (8-55); AST (SGOT) 9 U/L (5-34); Albumin 3.9 g/dL (3.4-4.8); Alkaline Phosphatase 160 U/L (40-110); Anion Gap 23 mmol/L (10-20); BUN (Urea Nitrogen) 49 mg/dL (9.8-20.1); Bilirubin, Total 0.6 mg/dL (0.2-1.2); Calc. Creatinine Clearance 0 mL/min (70-130); Calcium 10.8 mg/dL (7.8-10.44); Carbon Dioxide 27 mmol/L (23-31); Chloride 97 mmol/L (98-107); Estimated GFR 4; Glucose 103 mg/dL (83-110); Potassium 4.8 mmol/L (3.5-5.1); Protein, Total 6.9 g/dL (5.8-8.1); Sodium 142 mmol/L (136-145)
[2023-02-08 02:08] LABS: Troponin I 0.102 ng/mL (< 0.028)
== END 2023-02-08 03:22 | disposition home or self-care (01) ==
LOC: ERS 21:55
DX: E87.70 Fluid overload, unspecified (principal); I12.0 Hypertensive chronic kidney disease with stage 5 chronic kidney disease or end stage renal disease; N18.6 End stage renal disease; E78.5 Hyperlipidemia, unspecified; Z99.2 Dependence on renal dialysis; Z86.73 Personal history of transient ischemic attack (TIA), and cerebral infarction without residual deficits
CPT/HCPCS: 36415; 71045; 80053; 83880; 84484; 85025; 93005; 94760

== ENCOUNTER 2023-08-12 09:53 | Emergency (ER) | payer MEDICARE, MEDICAID | END 2023-08-12 13:03 | disposition home or self-care (01) | LOC: ERS 09:53 | DX: S09.90XA Unspecified injury of head, initial encounter (principal); S16.1XXA Strain of muscle, fascia and tendon at neck level, initial encounter; S01.81XA Laceration without foreign body of other part of head, initial encounter; W18.30XA Fall on same level, unspecified, initial encounter | CPT/HCPCS: 12014; 70450; 72125; 93005 ==

== ENCOUNTER 2025-07-05 12:56 | Inpatient (IN) | payer MEDICARE, OTHER ==
[2025-07-05 14:16] LABS: #Basophils 0.05 10x3/uL (0.0-0.2); #Eosinophils 0.23 10x3/uL (0.0-0.7); #Monocytes 0.38 10x3/uL (0.11-0.59); #Neutrophils 3.71 10x3/uL (1.40-6.50); %Basophils 1.1 % (0.0-1.0); %Eosinophils 4.9 % (0.0-10.0); %Lymphocytes 7.6 % (21.0-51.0); %Monocytes 8.0 % (0.0-10.0); %Neutrophils 78.2 % (42.0-75.0); Hematocrit 36.8 % (36.0-47.0); Hemoglobin 10.5 g/dL (12.0-16.0); Mean Corpuscular Hemoglobin 27.6 pg (27.0-31.0); Mean Corpuscular Volume 96.6 fL (78.0-98.0); Platelet Count 227 10x3/uL (130-400); Red Blood Cell (RBC) Count 3.81 mill/uL (4.20-5.40); White Blood Cell (WBC) Count 4.74 10x3/uL (4.8-10.8)
[2025-07-05 14:34] LABS: Actual Bicarbonate (HCO3v) 28.4 mEq/L (22-28); Analyzer IN Cardio ER; Base Excess 1.1 mEq/L (-2.0 to +3.0); Calcium, Ionized (venous) 1.06 mmol/L (1.16-1.32); Chloride (VBG) 99 mmol/L (98-106); Hematocrit-VBG 34 % (36.0-47.0); Hemoglobin (Hb) 11.5 g/dL (11.7-16.1); Potassium (VBG) 4.04 mmol/L (3.70-5.30); Sodium 142 mmol/L (133-146)
[2025-07-05 14:37] LABS: ALT (SGPT) 7 U/L (Less than 34); AST (SGOT) 14 U/L (11-34); Albumin 3.6 g/dL (3.1-4.5); Alkaline Phosphatase 80 U/L (40-110); Anion Gap 22 mmol/L (10-20); BUN (Urea Nitrogen) 52 mg/dL (9.8-20.1); Bilirubin, Total 0.6 mg/dL (0.3-1.2); Calc. Creatinine Clearance 0 mL/min (70-130); Calcium 8.8 mg/dL (7.8-10.44); Carbon Dioxide 26 mmol/L (23-31); Chloride 99 mmol/L (98-107); Globulin 2.9 g/dL (2.4-3.5); Glucose 183 mg/dL (83-110); Potassium 4.0 mmol/L (3.5-5.1); Sodium 143 mmol/L (136-145)
[2025-07-05] MEDS ORDERED: Magnesium 2 GM/50 ML BAG (IN WATER) ONE (15:24)
[2025-07-05] MEDS ORDERED: Nitroglycerin 2% Ointment 1 INCH/1 GM Packet ONE ×2 (15:24→15:29)
[2025-07-05] MEDS ORDERED: Aspirin Chewable 81 MG TAB ONE (15:24)
[2025-07-05] MEDS ORDERED: Ondansetron PF 4 MG/2 ML Vial IVP PRN (16:32)
[2025-07-05] MEDS ORDERED: Electrolyte Replacement Protocol 1 EACH IVPB ONE (16:32)
[2025-07-05 17:24] LABS: HBSAB Concentration Less than 8.00 mIU/mL; Hep B Core Total Ab NONREACTIVE (NonReactive); Hep B Core Total Index 0.13 S/CO (0-0.79); Hep B Surf Ag NONREACTIVE S/CO (NonReactive); Hep C IgG Ab NONREACTIVE S/CO (NonReactive); Hep C Index 0.12 S/CO (0-0.79)
[2025-07-05 18:34] LABS: #Basophils 0.03 10x3/uL (0.0-0.2); #Eosinophils 0.09 10x3/uL (0.0-0.7); #Monocytes 0.14 10x3/uL (0.11-0.59); #Neutrophils 3.41 10x3/uL (1.40-6.50); %Basophils 0.8 % (0.0-1.0); %Eosinophils 2.3 % (0.0-10.0); %Lymphocytes 5.4 % (21.0-51.0); %Monocytes 3.6 % (0.0-10.0); %Neutrophils 87.6 % (42.0-75.0); Hematocrit 35.9 % (36.0-47.0); Hemoglobin 10.0 g/dL (12.0-16.0); Mean Corpuscular Hemoglobin 27.9 pg (27.0-31.0); Mean Corpuscular Volume 100.3 fL (78.0-98.0); Platelet Count 186 10x3/uL (130-400); Red Blood Cell (RBC) Count 3.58 mill/uL (4.20-5.40); White Blood Cell (WBC) Count 3.89 10x3/uL (4.8-10.8)
[2025-07-05 18:35] LABS: Anion Gap 22 mmol/L (10-20); BUN (Urea Nitrogen) 53 mg/dL (9.8-20.1); Calc. Creatinine Clearance 5 mL/min (70-130); Calcium 8.4 mg/dL (7.8-10.44); Carbon Dioxide 23 mmol/L (23-31); Chloride 100 mmol/L (98-107); Glucose 145 mg/dL (83-110); Potassium 4.3 mmol/L (3.5-5.1); Sodium 141 mmol/L (136-145)
[2025-07-05 18:55] LABS: Anisocytosis SLIGHT = 6-15 cells HPF (0-5); Burr Cells SLIGHT = 2-5 cells HPF (0-1); Macrocytosis SLIGHT = 6-15 cells HPF (0-5); Ovalocytes SLIGHT = 2-5 cells HPF (0-1); Platelet Adequacy Comment Platelets Normal; Polychromasia SLIGHT = 2-3 cells HPF (0-2)
[2025-07-06 02:10] LABS: #Basophils Less than 0.03 10x3/uL (0.0-0.2); #Eosinophils Less than 0.03 10x3/uL (0.0-0.7); #Monocytes 0.19 10x3/uL (0.11-0.59); #Neutrophils 3.14 10x3/uL (1.40-6.50); %Basophils 0.3 % (0.0-1.0); %Eosinophils 0.0 % (0.0-10.0); %Lymphocytes 6.9 % (21.0-51.0); %Monocytes 5.3 % (0.0-10.0); %Neutrophils 87.2 % (42.0-75.0); Hematocrit 33.7 % (36.0-47.0); Hemoglobin 9.9 g/dL (12.0-16.0); Mean Corpuscular Hemoglobin 27.9 pg (27.0-31.0); Mean Corpuscular Volume 94.9 fL (78.0-98.0); Platelet Count 189 10x3/uL (130-400); Red Blood Cell (RBC) Count 3.55 mill/uL (4.20-5.40); White Blood Cell (WBC) Count 3.60 10x3/uL (4.8-10.8)
[2025-07-06 02:53] LABS: Anion Gap 18 mmol/L (10-20); BUN (Urea Nitrogen) 26 mg/dL (9.8-20.1); Calc. Creatinine Clearance 9 mL/min (70-130); Calcium 8.9 mg/dL (7.8-10.44); Carbon Dioxide 25 mmol/L (23-31); Chloride 96 mmol/L (98-107); Glucose 138 mg/dL (83-110); Potassium 4.0 mmol/L (3.5-5.1); Sodium 135 mmol/L (136-145)
[2025-07-06 05:23] VITALS: BMI 20.3
[2025-07-06] MEDS: Calcitriol 0.25 MCG CAP PO SCH (11:45)
[2025-07-06] MEDS: PNEUMOC 20-VAL CONJ-DIP CRM/PF 0.5 ML SYRINGE IM ONE (11:45)
[2025-07-06] MEDS: EPOETIN ALFA-EPBX (ESRD) 10,000 UNITS/ML VIAL SC SCH (17:48)
[2025-07-06] MEDS: EPOETIN ALFA-EPBX (ESRD) 4,000 UNITS/ML VIAL SC SCH (17:53)
[2025-07-06] MEDS: Lansoprazole 30 MG/10 ML UDCUP PO SCH (20:19)
[2025-07-06] MEDS: Melatonin 3 MG TAB PO PRN (20:20)
[2025-07-07 07:07] LABS: Anion Gap 21 mmol/L (10-20); BUN (Urea Nitrogen) 73 mg/dL (9.8-20.1); Calc. Creatinine Clearance 6 mL/min (70-130); Calcium 8.4 mg/dL (7.8-10.44); Carbon Dioxide 26 mmol/L (23-31); Chloride 96 mmol/L (98-107); Glucose 86 mg/dL (83-110); Potassium 4.9 mmol/L (3.5-5.1); Sodium 138 mmol/L (136-145)
[2025-07-07 07:48] LABS: #Basophils 0.05 10x3/uL (0.0-0.2); #Eosinophils 0.29 10x3/uL (0.0-0.7); #Monocytes 0.82 10x3/uL (0.11-0.59); #Neutrophils 3.87 10x3/uL (1.40-6.50); %Basophils 0.8 % (0.0-1.0); %Eosinophils 4.7 % (0.0-10.0); %Lymphocytes 17.2 % (21.0-51.0); %Monocytes 13.4 % (0.0-10.0); %Neutrophils 63.2 % (42.0-75.0); Hematocrit 34.0 % (36.0-47.0); Hemoglobin 9.9 g/dL (12.0-16.0); Mean Corpuscular Hemoglobin 28.0 pg (27.0-31.0); Mean Corpuscular Volume 96.3 fL (78.0-98.0); Platelet Count 225 10x3/uL (130-400); Red Blood Cell (RBC) Count 3.53 mill/uL (4.20-5.40); White Blood Cell (WBC) Count 6.12 10x3/uL (4.8-10.8)
[2025-07-07] MEDS: NIFEdipine XL 30 MG ER.TAB PO SCH (08:23)
[2025-07-08 07:21] LABS: #Basophils 0.05 10x3/uL (0.0-0.2); #Eosinophils 0.32 10x3/uL (0.0-0.7); #Monocytes 0.89 10x3/uL (0.11-0.59); #Neutrophils 5.80 10x3/uL (1.40-6.50); %Basophils 0.6 % (0.0-1.0); %Eosinophils 4.0 % (0.0-10.0); %Lymphocytes 11.4 % (21.0-51.0); %Monocytes 11.1 % (0.0-10.0); %Neutrophils 72.4 % (42.0-75.0); Hematocrit 30.6 % (36.0-47.0); Hemoglobin 9.1 g/dL (12.0-16.0); Mean Corpuscular Hemoglobin 27.8 pg (27.0-31.0); Mean Corpuscular Volume 93.6 fL (78.0-98.0); Platelet Count 246 10x3/uL (130-400); Red Blood Cell (RBC) Count 3.27 mill/uL (4.20-5.40); White Blood Cell (WBC) Count 8.01 10x3/uL (4.8-10.8)
[2025-07-08 07:24] LABS: Anion Gap 16 mmol/L (10-20); BUN (Urea Nitrogen) 65 mg/dL (9.8-20.1); Calc. Creatinine Clearance 8 mL/min (70-130); Calcium 8.9 mg/dL (7.8-10.44); Carbon Dioxide 21 mmol/L (23-31); Chloride 99 mmol/L (98-107); Glucose 94 mg/dL (83-110); Potassium 5.0 mmol/L (3.5-5.1); Sodium 131 mmol/L (136-145)
[2025-07-08] MEDS: Mupirocin 1 GM TUBE TP SCH (09:51)
[2025-07-08] MEDS: Acetaminophen 325 MG TAB PO PRN (19:46)
[2025-07-09 06:03] LABS: #Basophils 0.04 10x3/uL (0.0-0.2); #Eosinophils 0.22 10x3/uL (0.0-0.7); #Monocytes 0.76 10x3/uL (0.11-0.59); #Neutrophils 5.17 10x3/uL (1.40-6.50); %Basophils 0.6 % (0.0-1.0); %Eosinophils 3.2 % (0.0-10.0); %Lymphocytes 10.5 % (21.0-51.0); %Monocytes 10.9 % (0.0-10.0); %Neutrophils 74.4 % (42.0-75.0); Hematocrit 26.5 % (36.0-47.0); Hemoglobin 7.9 g/dL (12.0-16.0); Mean Corpuscular Hemoglobin 27.3 pg (27.0-31.0); Mean Corpuscular Volume 91.7 fL (78.0-98.0); Platelet Count 210 10x3/uL (130-400); Red Blood Cell (RBC) Count 2.89 mill/uL (4.20-5.40); White Blood Cell (WBC) Count 6.95 10x3/uL (4.8-10.8)
[2025-07-09 06:04] LABS: Anion Gap 18 mmol/L (10-20); BUN (Urea Nitrogen) 90 mg/dL (9.8-20.1); Calc. Creatinine Clearance 6 mL/min (70-130); Calcium 9.0 mg/dL (7.8-10.44); Carbon Dioxide 21 mmol/L (23-31); Chloride 100 mmol/L (98-107); Glucose 94 mg/dL (83-110); Potassium 4.5 mmol/L (3.5-5.1); Sodium 134 mmol/L (136-145)
[2025-07-10 04:27] LABS: #Basophils 0.03 10x3/uL (0.0-0.2); #Eosinophils 0.29 10x3/uL (0.0-0.7); #Monocytes 0.54 10x3/uL (0.11-0.59); #Neutrophils 3.75 10x3/uL (1.40-6.50); %Basophils 0.6 % (0.0-1.0); %Eosinophils 5.7 % (0.0-10.0); %Lymphocytes 9.0 % (21.0-51.0); %Monocytes 10.6 % (0.0-10.0); %Neutrophils 73.7 % (42.0-75.0); Hematocrit 24.7 % (36.0-47.0); Hemoglobin 7.4 g/dL (12.0-16.0); Mean Corpuscular Hemoglobin 27.6 pg (27.0-31.0); Mean Corpuscular Volume 92.2 fL (78.0-98.0); Platelet Count 224 10x3/uL (130-400); Red Blood Cell (RBC) Count 2.68 mill/uL (4.20-5.40); White Blood Cell (WBC) Count 5.09 10x3/uL (4.8-10.8)
[2025-07-10 04:44] LABS: Anion Gap 14 mmol/L (10-20); BUN (Urea Nitrogen) 36 mg/dL (9.8-20.1); Calc. Creatinine Clearance 10 mL/min (70-130); Calcium 8.8 mg/dL (7.8-10.44); Carbon Dioxide 26 mmol/L (23-31); Chloride 99 mmol/L (98-107); Glucose 102 mg/dL (83-110); Potassium 3.9 mmol/L (3.5-5.1); Sodium 135 mmol/L (136-145)
[2025-07-10 19:22] VITALS: BP 131/65; TEMP 98.4
== END 2025-07-10 19:30 | disposition home health service (06) | DRG 640 ==
LOC: ERS 12:56 → ERHOLD 16:06 → IMCU/EMU 17:16 → T4-B 07-06 18:28
PROVIDERS: ADMIT Internal Medicine; ATTEND Student in an Organized Health Care Education/Training Program
PROC: 5A1D70Z Performance of Urinary Filtration, Intermittent, Less than 6 Hours Per Day (ICD-10-PCS; principal; 2025-07-07)
DX: E87.70 Fluid overload, unspecified (principal); I21.A1 Myocardial infarction type 2; J96.01 Acute respiratory failure with hypoxia; N18.6 End stage renal disease; I50.33 Acute on chronic diastolic (congestive) heart failure; N17.9 Acute kidney failure, unspecified; N25.81 Secondary hyperparathyroidism of renal origin; I13.2 Hypertensive heart and chronic kidney disease with heart failure and with stage 5 chronic kidney disease, or end stage renal disease; E78.5 Hyperlipidemia, unspecified; Z98.890 Other specified postprocedural states; I48.0 Paroxysmal atrial fibrillation; D64.9 Anemia, unspecified; E03.9 Hypothyroidism, unspecified; F31.9 Bipolar disorder, unspecified; E83.39 Other disorders of phosphorus metabolism; R56.9 Unspecified convulsions; Z91.158 Patient's noncompliance with renal dialysis for other reason; R53.81 Other malaise; Z79.899 Other long term (current) drug therapy
CPT/HCPCS: 36415; 71045; 80048; 80053; 82805; 83880; 83970; 84100; 84484; 85025; 86704; 86706; 86803; 87340; 90935; 93005; 96374; 96375; G0257; J2919; J3475; Q5105

== ENCOUNTER 2025-08-10 14:08 | Outpatient (CLI) | payer MEDICARE, OTHER ==
[2025-08-10 15:14] LABS: #Basophils 0.06 10x3/uL (0.0-0.2); #Eosinophils 0.24 10x3/uL (0.0-0.7); #Monocytes 0.51 10x3/uL (0.11-0.59); #Neutrophils 3.24 10x3/uL (1.40-6.50); %Basophils 1.2 % (0.0-1.0); %Eosinophils 4.8 % (0.0-10.0); %Lymphocytes 18.6 % (21.0-51.0); %Monocytes 10.2 % (0.0-10.0); %Neutrophils 65.0 % (42.0-75.0); Hematocrit 37.3 % (36.0-47.0); Hemoglobin 11.1 g/dL (12.0-16.0); Mean Corpuscular Hemoglobin 27.3 pg (27.0-31.0); Mean Corpuscular Volume 91.6 fL (78.0-98.0); Platelet Count 246 10x3/uL (130-400); Red Blood Cell (RBC) Count 4.07 mill/uL (4.20-5.40); White Blood Cell (WBC) Count 4.99 10x3/uL (4.8-10.8)
[2025-08-10 15:35] LABS: ALT (SGPT) 9 U/L (Less than 34); AST (SGOT) 18 U/L (11-34); Albumin 3.7 g/dL (3.1-4.5); Alkaline Phosphatase 99 U/L (40-110); Anion Gap 20 mmol/L (10-20); BUN (Urea Nitrogen) 38 mg/dL (9.8-20.1); Bilirubin, Total 0.5 mg/dL (0.3-1.2); Calc. Creatinine Clearance 0 mL/min (70-130); Calcium 9.5 mg/dL (7.8-10.44); Carbon Dioxide 28 mmol/L (23-31); Chloride 97 mmol/L (98-107); Globulin 3.4 g/dL (2.4-3.5); Glucose 108 mg/dL (83-110); Potassium 4.2 mmol/L (3.5-5.1); Sodium 141 mmol/L (136-145)
== END 2025-08-10 14:09 | disposition home or self-care (01) ==
LOC: LABBT 14:08
PROVIDERS: ATTEND Internal Medicine Cardiovascular Disease
DX: Z01.818 Encounter for other preprocedural examination (principal); I35.0 Nonrheumatic aortic (valve) stenosis
CPT/HCPCS: 80053; 85025; 93005; 93010

== ENCOUNTER 2025-08-13 07:15 | Day surgery (SDC) | payer OTHER ==
[2025-08-10 14:56] VITALS: BMI 22.3
[2025-08-13] MEDS ORDERED: Lidocaine 1% (PF) 30 ML VIAL ONE (08:45)
[2025-08-13] MEDS ORDERED: Adenosine 6 mg (2 mL) VIAL ONE (08:45)
[2025-08-13] MEDS ORDERED: Heparin 10,000 UNITS/ 10 ML VIAL ONE (08:45)
[2025-08-13] MEDS ORDERED: Nitroglycerin 50 MG/250 ML BOT 0 ML ONE (08:46)
[2025-08-13] MEDS ORDERED: hydrALAZINE 20 MG/ML VIAL ONE (09:03)
== END 2025-08-13 15:46 | disposition home or self-care (01) ==
LOC: SDC 07:15
PROVIDERS: ATTEND Internal Medicine Cardiovascular Disease
DX: I35.0 Nonrheumatic aortic (valve) stenosis (principal)
CPT/HCPCS: C1751; C1769 ×2; C1887; C1894; C1984; J0360; J1644; J2003; 93460; J0153; J2250; J3010